=== PATIENT | male | born 1955 | race Caucasian/White ===

== ENCOUNTER 2020-05-05 09:36 | Outpatient (CLI) | payer OTHER, SELFPAY ==
--- NOTE | ~2020-05-05 | US_ITS ---
EXAMINATION: US thyroid DATE: 05/05/2020 10:08 INDICATION: Thyroid nodule. TECHNIQUE: Multiple ultrasound images of the thyroid were obtained. COMPARISON: Ultrasound 05/18/2018 FINDINGS: The right thyroid lobe measures 4.1 x 1.8 x 1.7 cm. The left thyroid lobe measures 4.0 x 2.0 x 1.8 c m. In the left thyroid lobe, there is a 5 mm solid, very hypoechoic, [id number]-[id number]-[id number] nodule with smo oth margin without echogenic foci (TI-RADS TR4). In the right thyroid lobe, there is a 5 mm solid, hy poechoic, riqeq-guyk-yxii nodule with smooth margin without echogenic foci (TR4). In right thyroid lo be, there is a 4 mm nodule. IMPRESSION: 1. Small thyroid nodules, likely not clinically significant. No follow-up is needed. Reviewed, dictated and finalized at location A. [facility] [employer] IMPRESSION: 1. Small thyroid nodules, likely not clinically significant. No follow-up is ne eded.
== END 2020-05-05 09:37 | disposition home or self-care (01) ==
LOC: ANHIMG 09:42
PROVIDERS: PCP Internal Medicine; Visit Provider Internal Medicine
DX: E04.2 Nontoxic multinodular goiter (principal)
CPT/HCPCS: 76536

== ENCOUNTER 2020-08-10 16:33 | Emergency (ER) | payer OTHER, SELFPAY ==
--- NOTE | ~2020-08-10 | XR_ITS ---
XR chest 2V DATE: 08/10/2020 17:40 INDICATION: Chest pain, fever, chills. Weakness. TECHNIQUE: AP and lateral views 12/07/2017 COMPARISON: AP and lateral chest FINDINGS: shelter monitor device is again noted in the left lower anterior chest wall. Heart size appears within upper normal range. Mild aortic unfolding. No hilar or mediastinal enlargem ent. Mild bibasilar atelectasis. Interbody spinal fusion at C6-7 since 12/07/2017. Diffuse osteopenia. Dextroscoliosis of the thoracic spine. Status post cholecystectomy. IMPRESSION: Mild bibasilar atelectasis Reviewed, dictated and finalized at location [facility]. IMPRESSION: Mild bibasilar atelectasis
--- NOTE | ~2020-08-10 | CT_ITS ---
EXAMINATION: CTA chest PE protocol DATE: 08/10/2020 21:27 INDICATION: Left-sided chest pain TECHNIQUE: Computed tomography angiography (CTA) of the chest was performed with 100 mL Omnipaque-350 intravenous contrast timed to evaluate the pulmonary arteries. Coronal maximum intensity projection 3D-reconstructions were created by the technologist. Automated exposure control and iterative reconst ruction technique were employed. Exam dose: 431.83 mGy-cm total exam DLP. COMPARISON: 08/10/2020 2 view chest 11/25/2008 CT pulmonary scan FINDINGS: There is diagnostic contrast enhancement of the pulmonary arteries and no evidence of pulmo nary embolism. No thoracic aortic aneurysm or dissection. Normal heart size. No hilar or mediastinal mass lesion or lymphadenopathy. Mild bilateral apical scarring. Mild discoid atelectasis or scarring in the lower lobes. No pulmonary infiltrate or consolidation or pulmonary mass lesion is evident. Normal morphology of the adrenal glands. There is apparent right nephrolithiasis. Status post cholecystectomy. IMPRESSION: No evidence of pulmonary embolism Reviewed, dictated and finalized at [facility]. Reviewed, dictated and finalized at location [facility].
--- NOTE | 2020-08-10 16:45 | ECG_ITS ---
Measurements Intervals [place] Rate: 105 P: 15 RI: 137 QRS: 2 QRSD: 88 T: 43 QT: 314 QTc: 416 Interpretive Statements SINUS TACHYCARDIA DELAYED PRECORDIAL R/S TRANSITION BASELINE ARTIFACT- I, II, III, AVR, AVL, AVF, V1-V6 ABNORMAL ECG Electronically Signed On 08-10-2020 20:00:06 CDT by Ean Hernandez D.O.
[2020-08-10 16:54] VITALS: BP 150/85; PULSE 107; RESP 20; TEMP 36.9; O2SAT 100
[2020-08-10 17:19] LABS: Basophils Percent Auto 0.2 % (0.2-1.2); Eosinophils Percent Auto 0.1 % (0-4.4); Hematocrit 43.3 % (42.0-52.0); Hemoglobin 14.2 g/dL (14.0-18.0); Immature Granulocyte Absolute 0.08 K/mm3 (0.00-0.031); Immature Granulocyte Percent A 0.5 % (0-0.5); Lymphocytes Absolute Auto 1.21 K/mm3 (0.9-3.2); Lymphocytes Percent Auto 6.9 % (18.3-44.2); Mean Corpuscular HGB Conc 32.8 g/dl (32-36); Mean Corpuscular Hemoglobin 30.2 pg (26-34); Mean Corpuscular Volume 92.1 fl (80-100); Mean Platelet Volume 10.3 fl (7.4-10.4); Monocytes Absolute Auto 0.6 K/mm3 (0.1-0.6); Monocytes Percent Auto 3.6 % (2.6-8.5); Neutrophils Absolute Auto 15.7 K/mm3 (1.3-6.7); Neutrophils Percent Auto 88.7 % (45.5-73.1); Platelet Count Result 168 k/mm3 (150-375); Red Cell Distribution Width 13.4 % (11.5-14.5); White Blood Count 17.7 K/mm3 (4.5-10.0)
[2020-08-10 17:28] LABS: Anion Gap 8 mmol/L (8-16); Blood Urea Nitrogen 18 mg/dL (9-20); Carbon Dioxide 27 mmol/L (22-30); Chloride 105 mmol/L (98-107); Estimated CRCL calculation 91 ml/min; Estimated Glomerular Filt Rate > 60; Glucose 109 mg/dL (75-110); Potassium 3.9 mmol/L (3.4-5.0); Sodium 140 mmol/L (137-145)
[2020-08-10 17:40] LABS: Troponin I < 0.012 ng/mL (0.000-0.034)
[2020-08-10 18:04] LABS: INR 1.1
[2020-08-10 18:05] LABS: Partial Thromboplastin Time 34.8 SECONDS (22.3-36.8)
[2020-08-10 19:48] VITALS: BP 160/86; PULSE 96; RESP 21; TEMP 37.4; O2SAT 98
--- NOTE | 2020-08-10 20:53 | ED.GENADULT ---
HPI - General Adult General Chief complaint: Chest Pain Stated complaint: chest pain Time Seen by Provider: 08/10/20 19:50 History of Present Illness HPI narrative: Patient is a 65-year-old gentleman who presents to the emergency department with chief complaint of fever body ache chest pain and headaches. Patient reports that for the last several days he has had a headache and is noticed that he has had fevers. Patient states that the headache is been unresolved reports that he has chronic neck pain reports also that he has had a little bit of a cough and has a sharp discomfort on the left side of his chest. Patient states is worse with inspiration does report that he has had some cough. Patient reports he was seen by his primary care physician and tested for COVID-19 this was negative. Related Data Allergies Allergy/AdvReac Type Severity Reaction Status Date / Time buspirone Allergy Unknown Verified 01/13/15 12:48 hydrocodone Allergy Unknown FEELS Verified 12/07/17 10:41 WEIRD , SWEATING, NO RASH, NO DIFFCULTY BREATHING Review of Systems Review of Systems: Narrative: A 10 system review of systems was completed on the patient and is negative except for what is stated in the HPI. Nursing and ancillary documentation was reviewed. [facility] Family History Family History (Updated 11/25/15 @ 23:21 by DOCTOR UNKNOWN) Mother Family history of heart disease in male family member before age 55 Father Acute myocardial infarction Sibling Patient's sister is in good health Patient's brother is in good health Family history of malignant neoplasm Other Family history of cardiovascular disease Hypertension Social History Social History Smoking status: Former smoker Alcohol intake: never Comments Patient has prior history of COPD hypertension hyperlipidemia Exam Narrative: Exam Narrative: GENERAL: Well-appearing, well-nourished, and in no acute distress. HEAD: Normocephalic, atraumatic. EYES: PERRLA and EOMI. ENT: Nares clear, no rhinorrhea or epistaxis. Mucous membranes moist. NECK: Supple. No meningeal signs CHEST: Clear to auscultation. No respiratory distress. HEART: Regular rate and rhythm. No murmur heard. Normal peripheral pulses. ABDOMEN: Soft, nontender, nondistended, normal active bowel sounds. EXTREMITIES: Normal range of motion. No edema. SKIN: Warm, dry, no rash. NEURO: No focal deficits. Alert and oriented x3. PSYCH: Normal mood and affect. Course Vital Signs Vital signs: Vital Signs Temperature 36.9 C 08/10/20 16:54 Pulse Rate 107 H 08/10/20 16:54 Respiratory Rate 08/10/20 16:54 Blood Pressure 150/85 H 08/10/20 16:54 Pulse Oximetry 100 08/10/20 16:54 Temperature 37.4 C 08/10/20 19:48 Pulse Rate 86 08/10/20 22:01 Respiratory Rate 20 08/10/20 22:01 Blood Pressure 149/86 H 08/10/20 22:01 Pulse Oximetry 100 08/10/20 22:01 Medical Decision Making Vital Signs Vital Signs: Vital Signs Temperature 36.9 C 08/10/20 16:54 Pulse Rate 107 H 08/10/20 16:54 Respiratory Rate 08/10/20 16:54 Blood Pressure 150/85 H 08/10/20 16:54 Pulse Oximetry 100 08/10/20 16:54 Temperature 37.4 C 08/10/20 19:48 Pulse Rate 86 08/10/20 22:01 Respiratory Rate 08/10/20 22:01 Blood Pressure 149/86 H 08/10/20 22:01 Pulse Oximetry 100 08/10/20 22:01 Lab Data Result diagrams: 08/10/20 17:12 08/10/20 17:12 Labs: Lab Results 08/10/20 08/10/20 08/10/20 Range/Units 17:12 17:12 17:12 WBC 17.7 H (4.5-10.0) K/mm3 RBC 4.70 (4.6-6.20) M/mm3 Hgb 14.2 (14.0-18.0) g/dL Hct 43.3 (42.0-52.0) % MCV 92.1 (80-100) fl MCH 30.2 (26-34) pg MCHC 32.8 (32-36) g/dl RDW 13.4 (11.5-14.5) % Plt Count 168 (150-375) k/mm3 MPV 10.3 (7.4-10.4) fl Immature Gran % (Auto) 0.5 (0-0.5) % Neut % (Auto) 88.7 H (45.5-73.1) % Lymph % (A
[2020-08-10 21:04] LABS: Alanine Aminotransferase 21 U/L (4-50); Albumin Level 4.1 g/dL (3.5-5.1); Alkaline Phosphatase 76 U/L (38-126); Aspartate Amino Transferase 31 U/L (17-59); Bilirubin,Total 1.1 mg/dL (0.2-1.3); Lipase 33 U/L (23-300)
--- NOTE | 2020-08-10 21:10 | PC.NURSE ---
Pt upset during IV insertion, pt upset during lab draw. Pt states they never have trouble getting [facility] blood at [facility], why can't you get it I gained access for IV after 1 attempt, 20 L hand, unable to obtain blood during lab draw. I attempted 1 time for labs on right arm, I was able to collect some of the labs, but the vein blew during lab draw. states again I don't understand why you are having trouble, the other nurse (DESEAN Juárez) seems very smart why don't you have her try, she knows what she is doing, my is not going to be a pin cushion, if we have too we will get a different nurse I then got DESEAN Juárez for assistance. Marquita ANTON was unable to obtain the blood, then Susan Ulloa went in and was able to obtain the blood. When I went in to give pain medication the was upset and being rude about how Marquita ANTON also could not get all the labs drawn and stated in a rude tone Susan didn't have any trouble getting the blood As I was drawing up the pain medications Pt yelled Where do you think you are going to stick that! I hope you don't think you are going to stick that in my arm! I answered I am going to put this in your IV Pt then calmed down and allowed me to administer the pain medication via IV access.
[2020-08-10 21:19] LABS: Lactic Acid Reflex 1.2 mmol/L (0.7-2.1)
[2020-08-10] MEDS: KETOROLAC 15 MG/ML VIAL (*BKC) IV PUSH (21:20)
--- NOTE | 2020-08-10 21:22 | PC.NURSE ---
Pt went to CT.
--- NOTE | 2020-08-10 21:25 | PC.NURSE ---
RN in to draw pt. blood. pt. vein blew immediately upon needle insertion. RN was able to advance needle and obtain blood for troponin, Lactic acid and second set of blood cultures were not obtained. mt Davis into draw blood specimen.
[2020-08-10 21:32] LABS: Troponin I < 0.012 ng/mL (0.000-0.034)
[2020-08-10] MEDS: SODIUM CHLORIDE 0.9% IV 1,000 ML 999 ML IV CONT (21:32)
[2020-08-10 21:40] LABS: Add Urine Microscopic? YES; Appearance Urine Cloudy (Clear); Bilirubin Urine Negative (Negative); Blood Urine Negative (Negative); Color Urine Yellow (Yellow); Glucose Urine UA Negative (Negative); Ketones Urine 1+ mg/dL (Negative); Leukocyte Esterase Ur Negative LEU/UL (Negative); Mucus Urine Rare /lpf; Nitrate Urine Negative (Negative); Protein Urine 1+ mg/dL (Negative); RBC Urine 0-2 /hpf (0-2); Specific Grav Ur 1.025 (1.001-1.035); Squamous Epithelial Cell Urine Rare /hpf (Few); WBC Urine 0-3 /hpf
[2020-08-10 22:01] VITALS: BP 149/86; PULSE 86; RESP 20; O2SAT 100
[2020-08-10] MEDS: MORPHINE SULFATE (*CRX) 4 MG/ML INJ IV PUSH (22:16)
--- NOTE | 2020-08-10 22:25 | PC.NURSE ---
Went into pts room to administer pain medication, swab for covid and strep. Updated pt and on what I was going to do, I informed that because we are swabbing for covid, that visitors are no longer allowed during ED stay. states in a very rude tone for how long! I answered during his stay, until we know if its negative or positive pt states very rudely That's fine, I'll wait in the car, I have some calls to make! . She then stormed out of the room. I then administered his pain medication and swabbed him for strep/covid.
--- NOTE | 2020-08-10 22:36 | PC.NURSE ---
Patient has made comments towards the staff. At 2034 the patient states how nurses fabian and prashant don't know how to draw blood . How prashant do not know how to stick and she was not professional , that it takes a tech to come to get his blood , and the nurses fabian and prashant have nurses license and they should know how to stick people. Also at 2227 the got mad because she was ask to leave but her have covid symptoms . fabian told her our policy and she said that she will be calling people about her visit and how she was treated. that i was the only person that showed them respect and was able to get his blood.
[2020-08-10 23:00] VITALS: BP 147/76; PULSE 86; RESP 20; TEMP 37.3; O2SAT 100
[2020-08-11 17:42] LABS: SARS-CoV-2 RNA PCR Negative
== END 2020-08-10 23:01 | disposition home or self-care (01) ==
PROVIDERS: Emergency Medicine; Emergency Provider Emergency Medicine; PCP Internal Medicine
DX: Z20.822 Contact with and (suspected) exposure to COVID-19 (principal); B34.9 Viral infection, unspecified; R07.89 Other chest pain; J44.9 Chronic obstructive pulmonary disease, unspecified; I10 Essential (primary) hypertension; E78.5 Hyperlipidemia, unspecified
CPT/HCPCS: 36415; 71046; 71275; 80048; 80076; 81001; 83605; 83690; 84484; 85025; 85610; 85730; 87040; 87081; 87804; 87880; 93005; 96361; 96374; 96375; 99284; C9803; J1885; J2270; J7030; Q9967; U0003; U0005

== ENCOUNTER 2023-05-27 00:30 | Day surgery (SDC) | payer OTHER, SELFPAY ==
[2023-05-24 16:14] VITALS: BMI 23.3
[2023-05-27 07:27] VITALS: BP 138/85; PULSE 73; RESP 11; O2SAT 97
--- NOTE | 2023-05-27 08:49 | PM.IMHP ---
H&P: HPI History of Present Illness Date/Time: 05/27/23 08:49 Chief Complaint: no complaints this morning Narrative: This is a 68-year-old man who has a chronically implanted Medtronic LINQ loop recorder and is scheduled to have the device electively removed this morning. Patient is unknown to me prior to this encounter. He follows in the office with my partner, Dr. Chua and has had a history of unexplained syncope in the past and for this reason had a Medtronic loop recorder implanted. The device was implanted I believe in 2017 and has for a while been passed end of service and is for that reason nonfunctional. The patient states that a physician elsewhere that is managing HD infection in his foot has indicated the device has to be removed so that he can have an MRI procedure performed. For this reason he has been scheduled to have this done today. I indicated to the patient that I was not aware that there was any MRI incompatibility with his will implanted LINQ device. His medical history also consists of hypertension and history of dyslipidemia. He does have a history of coronary angiography having been done for chest pain evaluation approximately 10 years ago which was a normal exam. Review of Systems Constitutional: Constitutional: Reports no additional constitutional complaints Eyes: Eyes: Reports no additional eye complaints ENT: Reports system reviewed and no additional complaints, except as documented Cardiovascular: Cardiovascular: Reports no additional cardiovascular complaints Respiratory: Respiratory: Reports no additional respiratory complaints Gastrointestinal: Gastrointestinal: Reports no additional gastrointestinal complaints Musculoskeletal: Comments: Lower extremity foot infection Neurologic: Reports system reviewed and no additional complaints, except as documented [facility] Family History Family History (Updated 11/25/15 @ 23:21 by DOCTOR UNKNOWN) Mother Family history of heart disease in male family member before age 55 Father Acute myocardial infarction Sibling Patient's sister is in good health Patient's brother is in good health Family history of malignant neoplasm Other Family history of cardiovascular disease Hypertension Social History Social History Smoking status: Former smoker Alcohol intake: never Substance use: never Substance use type: does not use Living arrangements: with family Spiritual care concerns: No Meds Home Medications and Allergies Home Medications Medication Instructions Recorded Confirmed Type acetaminophen 500 mg tablet (Pain 500 mg PO Q6H PRN Pain 05/24/23 05/24/23 History Reliever (acetaminophen)) ascorbic acid (vitamin C) 1,000 mg 1 g PO DAILY 05/24/23 05/24/23 History tablet aspirin 81 mg tablet,delayed 81 mg PO DAILY 05/24/23 05/24/23 History release (Adult Low Dose Aspirin) cefuroxime axetil 500 mg tablet 500 mg PO Q12H 05/24/23 05/24/23 History cyanocobalamin (vitamin B-12) 250 250 mcg PO DAILY 05/24/23 05/24/23 History mcg tablet donepezil 10 mg tablet 10 mg PO HS 05/24/23 05/24/23 History doxycycline hyclate 100 mg capsule 100 mg PO BID 05/24/23 05/24/23 History finasteride 5 mg tablet 5 mg PO DAILY 05/24/23 05/24/23 History fluticasone 250 mcg-salmeterol 50 1 inh inhalation Q12H 05/24/23 05/24/23 History mcg/dose blistr powdr for inhalation (Advair Diskus) metformin 500 mg tablet 500 mg PO BID 05/24/23 05/24/23 History metoprolol tartrate 25 mg tablet 25 mg PO BID 05/24/23 05/24/23 History multivit with minerals-iron 18 1 tablet PO DAILY 05/24/23 05/24/23 History mg-folic ac 400 mcg-vit K 25 mcg tablet (Adults Multivitamin) naproxen sodium 220 mg capsule 220 mg PO Q12H PRN Pain 05/24/23 05/24/23 History nitroglycerin 0.4 mg sublingual 0.4 mg sublingual Q5-15M PRN Chest 05/24/23 05/24/23 History tablet Pain omeprazole 40 mg capsule,delayed 40 mg PO DAILY 05/24/23 05/24/23 History
--- NOTE | 2023-05-27 09:14 | WPDMODSED ---
Moderate Sedation Note-Pt Data Patient Data Diagnosis: Previously implanted Medtronic LINQ loop recorder Present Complaint: no complaints Procedure to be performed/Plan: removal of loop recorder Allergies Allergy/AdvReac Type Severity Reaction Status Date / Time buspirone Allergy Unknown Unknown Verified 05/24/23 15:45 hydrocodone Allergy Unknown FEELS Verified 12/07/17 10:41 WEIRD , SWEATING, NO RASH, NO DIFFCULTY BREATHING morphine Allergy Irritable Verified 05/24/23 15:45 Home Medications Medication Instructions Recorded Confirmed Type acetaminophen 500 mg tablet (Pain 500 mg PO Q6H PRN Pain 05/24/23 05/24/23 History Reliever (acetaminophen)) ascorbic acid (vitamin C) 1,000 mg 1 g PO DAILY 05/24/23 05/24/23 History tablet aspirin 81 mg tablet,delayed 81 mg PO DAILY 05/24/23 05/24/23 History release (Adult Low Dose Aspirin) cefuroxime axetil 500 mg tablet 500 mg PO Q12H 05/24/23 05/24/23 History cyanocobalamin (vitamin B-12) 250 250 mcg PO DAILY 05/24/23 05/24/23 History mcg tablet donepezil 10 mg tablet 10 mg PO HS 05/24/23 05/24/23 History doxycycline hyclate 100 mg capsule 100 mg PO BID 05/24/23 05/24/23 History finasteride 5 mg tablet 5 mg PO DAILY 05/24/23 05/24/23 History fluticasone 250 mcg-salmeterol 50 1 inh inhalation Q12H 05/24/23 05/24/23 History mcg/dose blistr powdr for inhalation (Advair Diskus) metformin 500 mg tablet 500 mg PO BID 05/24/23 05/24/23 History metoprolol tartrate 25 mg tablet 25 mg PO BID 05/24/23 05/24/23 History multivit with minerals-iron 18 1 tablet PO DAILY 05/24/23 05/24/23 History mg-folic ac 400 mcg-vit K 25 mcg tablet (Adults Multivitamin) naproxen sodium 220 mg capsule 220 mg PO Q12H PRN Pain 05/24/23 05/24/23 History nitroglycerin 0.4 mg sublingual 0.4 mg sublingual Q5-15M PRN Chest 05/24/23 05/24/23 History tablet Pain omeprazole 40 mg capsule,delayed 40 mg PO DAILY 05/24/23 05/24/23 History release pravastatin 40 mg tablet 40 mg PO DAILY 05/24/23 05/24/23 History tamsulosin 0.4 mg capsule 0.4 mg PO BID 05/24/23 05/24/23 History tramadol 50 mg tablet 50 - 100 mg PO Q4-6H PRN Pain 05/24/23 05/24/23 History vitamin B complex 1 cap PO DAILY 05/24/23 05/24/23 History Current Medications: Active Medications Sodium Chloride (Normal Saline Iv) 500 mls @ 30 mls/hr IV CONT .[id number] ONE Stop: 05/27/23 23:39 Sedation/Anesthesia: No previous sedation/anesthesia problems (including family history). [facility] Family History Family History (Updated 11/25/15 @ 23:21 by DOCTOR UNKNOWN) Mother Family history of heart disease in male family member before age 55 Father Acute myocardial infarction Sibling Patient's sister is in good health Patient's brother is in good health Family history of malignant neoplasm Other Family history of cardiovascular disease Hypertension Social History Social History Smoking status: Former smoker Alcohol intake: never Substance use: never Substance use type: does not use Living arrangements: with family Spiritual care concerns: No Mod Sed Physical Exam Physical Exam Pre Procedural Exam: Normal: Appearance, Neck, Throat, Airway, Lungs, Heart Size, Heart Rate, Heart Rhythm and Neuro Exam Hours since solid foods: 12 Hours since liquid intake: 12 Mallampati Classification: class II Internal Medicine - PN: Obj Da Vital Signs Vital Signs: Vital Signs - 24 hr 05/27/23 07:27 Pulse Rate 73 Respiratory Rate 11 L Blood Pressure 138/85 Pulse Oximetry 97 Oxygen Delivery Room Air Meds/Results Medications: Active Medications Generic Name Dose Route Start Last Admin Trade Name Freq PRN Reason Stop Dose Admin Sodium Chloride 500 mls @ 30 mls/hr 05/27/23 07:00 Normal Saline Iv IV CONT 05/27/23 23:39 .[id number] ASA Classification/Sedation ASA Classification/Sedation ASA Class: II Emergent: No Risks: Risks, benefi
--- NOTE | 2023-05-27 09:47 | P.PCNCC_ITS ---
Cardiac Cath Procedure Note Date of procedure:: 05/27/23 Performing physician:: Deandre Wells MD Indication:: previously implanted loop recorder at end of battery service Brief clinical history:: this is a 68-year-old man with a history of a Medtronic loop recorder that was implanted in 2017. The device has nonfunctional as the battery service has . The patient states that physicians elsewhere who are managing and infection are desirous of having the device removed for reasons that are not understood at the time of this procedure. He states this has something to do with getting an MRI performed. He is admitted today as an outpatient to have the device explanted. Procedure Procedure performed:: Explantation of Medtronic LINQ loop recorder Sedation/Medication given:: fentanyl 50 Versed 2 mg Access site:: left anterior chest wall and side of chronically implanted loop recorder Estimated blood loss:: minimal Procedure note:: patient was brought to the cardiac catheterization lab in the postabsorptive state. The left anterior chest wall at the site of the chronically implanted loop recorder was prepped and draped in a sterile fashion. I did use fluoroscopy to locate the device. 1% lidocaine was infiltrated above the device for local anesthesia. Incision was then made about 2 cm long over the implanted device. Sharp and blunt dissection was used to separate the subcutaneous tissue and the Medtronic LINQ device was identified in the subcutaneous fat. Sharp and blunt dissection was used to cut the fibrous scar tissue the device was extracted from the skin. Electrocautery was used to provide cutaneous hemostasis. The pocket was flushed with Ancef infused saline. Following this the incision was closed in layers using 3-0 Vicryl in an interrupted fashion and 4-0 Vicryl in a subcuticular fashion for the skin. An Aquacel dressing was placed over the incision. The patient was taken to the holding area in stable condition. The procedure was well tolerated and uncomplicated. Findings:: As above Conclusion:: successful uncomplicated explantation of chronically implanted Medtronic LINQ loop recorder Deandre Wells MD [facility] Assessment and Plan Assessment and plan (1) Encounter for loop recorder at end of battery life: Code(s): Z45.09 - Encounter for adjustment and management of other cardiac device Status: Acute
[2023-05-27 10:00] VITALS: BP 140/84; PULSE 67; RESP 16; TEMP 36.1; O2SAT 94
[2023-05-27 10:15] VITALS: BP 130/93; PULSE 71; RESP 16; O2SAT 93
[2023-05-27 10:30] VITALS: BP 138/81; PULSE 70; RESP 16; O2SAT 95
[2023-05-27 10:45] VITALS: BP 139/95; PULSE 64; RESP 18; O2SAT 98
[2023-05-27 11:00] VITALS: BP 140/91; PULSE 68; RESP 18; O2SAT 97
== END 2023-05-27 11:28 | disposition home or self-care (01) ==
PROVIDERS: PCP Internal Medicine; Visit Provider Specialist
PROC: (CPT 33286; principal; 2023-05-27 08:30)
DX: Z45.09 Encounter for adjustment and management of other cardiac device (principal); Z79.82 Long term (current) use of aspirin; Z79.51 Long term (current) use of inhaled steroids; Z79.84 Long term (current) use of oral hypoglycemic drugs
CPT/HCPCS: 33286; J0690; J2250; J3010; J7040

== ENCOUNTER 2024-08-19 08:50 | Outpatient (CLI) | payer OTHER, SELFPAY ==
--- NOTE | ~2024-08-19 | US_ITS ---
EXAMINATION: US art doppler w press LE BI DATE: 08/19/2024 10:15 INDICATION: Diabetic ulcer of the toe and left foot TECHNIQUE: Segmental pressures and plethysmographic and Doppler waveforms of the brachial and lower e xtremity arteries were obtained. COMPARISON: None. FINDINGS: Right and left brachial artery pressures of 137 mm Hg and 139 mm Hg, respectively, are concordant (no rmal difference <= 30 mmHg). The right and left high-thigh pressure indices are 1.10 and 1.09, respec tively (normal > 1.2). The right ankle-brachial index (LEE) is 1.17 (normal >= 0.9-1). The right great toe-brachial index (T BI) is 0.97 (normal >= 0.6-0.8). The right lower extremity segmental pressure gradients are normal (n ormal gradients <= 20-30 mmHg between adjacent levels on the same leg or the same levels on the two l egs). Arterial waveforms are triphasic at the right common femoral artery and biphasic at the remaini ng arteries with brisk systolic upstrokes throughout the arteries of the right lower limb. The left LEE is 1.26. The left TBI is 0.84. The left lower extremity segmental pressure gradients are increased between the below the knee left popliteal artery and the left posterior tibial artery. Art erial waveforms are biphasic at the left common femoral, superficial femoral and popliteal arteries a nd monophasic at the posterior tibial and dorsalis pedis arteries with brisk systolic upstrokes throu ghout. IMPRESSION: 1. No significant arterial occlusive disease to either lower limb with normal bilateral LEE's and TBI 's. Reviewed, dictated and finalized at location A. IMPRESSION: 1. No significant arterial occlusive disease to either lower limb with normal b ilateral LEE's and TBI's.
--- OUTSIDE RECORDS SUMMARY | 2024-08-19 09:27 | XMS_ITS | Patient Health Record ---
Author Organization [address] [facility] Address [address] [place] [address] Care Team Providers Care Accordion Repairer Name Role Phone Umair Alvarez Primary Care Provider Nathalia Roy Unavailable [phone] Reason For Referral No Information Problems Problem Type SNOMED Code ICD Code Onset Dates Problem Status W/U Status Risk Notes Problem [id number] Non-pressure chronic 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 layer exposed (L97.522) Active confirmed Problem 889970157 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) Active confirmed Problem Chronic osteomyelitis of ankle and/or foot (951727817) Other osteomyelitis, ankle and foot (M86.8X7) Active confirmed Problem 31162593197739953 Personal histo ry of diabetic foot ulcer (Z86.31) Active confirmed Problem [id number] Other osteomyelitis of left foot (M86.8X7) Active confirmed Problem 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 of necrosis (L97.525) Active confirmed Problem 19157341 Type 2 diabetes mellitus with diabetic polyneuropathy, 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42 and Non-pressure chronic 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 layer exposed L97.522 [facility] [address] [id number] 09/06/2023 Nathalia Alcala Type 2 diabetes kaila itus with diabetic polyneuropathy, unspecified whether penitentiary insulin use E11.42 and Non-pressure chronic 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 layer exposed L97.522 [facility] [address] [id number] 09/20/2023 Nathalia Alcala Type 2 diabetes kaila itus with diabetic polyneuropathy, unspecified whether dedicated intermodal truck driver insulin use E11.42 and Non-pressure chronic 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 layer exposed L97.522 [facility] [address] [id number] 10/04/2023 Nathalia Alcala Type 2 diabetes kaila itus with diabetic polyneuropathy, unspecified whether dedicated intermodal truck driver insulin use E11.42 and Non-pressure chronic 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 layer exposed L97.522 [facility] [address] [id number] 10/11/2023 Nathalia Alcala Type 2 diabetes kaila itus with diabetic polyneuropathy, unspecified whether penitentiary insulin use E11.42 and Non-pressure chronic 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 layer exposed L97.522 [facility] [address] [id number] 10/25/2023 Nathalia Alcala Type 2 diabetes kaila itus with diabetic polyneuropathy, unspecified whether dedicated intermodal truck driver insulin use E11.42 ; Non-pressure chronic 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 layer exposed L97.522 and Other specified disorders of the skin and subcutaneous tissue L98.8 [facility] [address] [id number] 11/15/2023 Nathalia Alcala Type 2 diabetes kaila itus with diabetic polyneuropathy, unspecified whether penitentiary insulin use E11.42 and Non-pressure chronic 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 layer exposed L97.522 [facility] [address] [id number] 11/29/2023 Nathalia Alcala Type 2 diabetes kaila itus with diabetic polyneuropathy, unspecified whether penitentiary insulin use E11.42 ; Non-pressure chronic 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 layer exposed L97.522 and Other acquired deformities of left foot M21.6X2 [facility] [address] [id number] 12/13/2023 Nathalia Shaha Type 2 diabetes kaila itus with diabetic polyneuropathy, unspecified whether dedicated intermodal truck driver insulin use E11.42 and Non-pressure chronic 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 layer exposed L97.522 [facility] [address] [id number] 12/27/2023 Nathalia Shaha Type 2 diabetes kaila itus with diabetic polyneuropathy, unspecified whether penitentiary insulin use E11.42 ; Non-pressure chronic 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 layer exposed L97.522 and Personal history of other diseases of the musculoskeletal system and connective tissue Z87.39 [facility] [address] [id number] 01/10/2024 Nathalia Alcala Type 2 diabetes kaila itus with diabetic polyneuropathy, unspecified whether penitentiary insulin use E11.42 ; Non-pressure chronic 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 layer exposed L97.522 and Personal history of other diseases of the musculoskeletal system and connective tissue Z87.[address] [id number] 01/31/2024 Nathalia Shaha Type 2 diabetes kaila itus with diabetic polyneuropathy, unspecified whether penitentiary insulin use E11.42 and Personal history of diabetic foot ulcer Z86.31 [facility] [address] [id number] 02/28/2024 Nathalia Shaha Type 2 diabetes kaila itus with diabetic polyneuropathy, unspecified whether penitentiary insulin use E11.42 and Personal history of diabetic foot ulcer Z86.31 1 OF Elena Dos Santos DPM [facility] [address] [address] 01/07/2024 Nathalia Alcala Assessments Encounter Date Diagnosis (ICD Code) Assessment Notes Treatment Notes Treatment Clinical Notes Section Notes 08/23/2023 Type 2 diabetes mellitus with diabetic polyneuropathy, unspecified whether dedicated intermodal truck driver insulin use (ICD-10 - E11.42) 08/30/2023 Type 2 diabetes mellitus with diabetic polyneuropathy, unspecified whether dedicated intermodal truck driver insulin use (ICD-10 - E11.42) 09/06/2023 Type 2 diabetes mellitus with diabetic polyneuropathy, unspecified whether penitentiary insulin use (ICD-10 - E11.42) 09/20/2023 Type 2 diabetes mellitus with diabetic polyneuropathy, unspecified whether penitentiary insulin use (ICD-10 - E11.42) 10/04/2023 Type 2 diabetes mellitus with diabetic polyneuropathy, unspecified whether penitentiary insulin use (ICD-10 - E11.42) 10/25/2023 Type 2 diabetes mellitus with diabetic polyneuropathy, unspecified whether penitentiary insulin use (ICD-10 - E11.42) 11/15/2023 Non-pressure chronic 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 layer exposed (ICD-10 - L97.522) 11/15/2023 Type 2 diabetes mellitus with diabetic polyneuropathy, unspecified whether penitentiary insulin use (ICD-10 - E11.42) 11/29/2023 Non-pressure chronic 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 layer exposed (ICD-10 - L97.522) 11/29/2023 Type 2 diabetes mellitus with diabetic polyneuropathy, unspecified whether penitentiary insulin use (ICD-10 - E11.42) 12/13/2023 Non-pressure chronic 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 layer exposed (ICD-10 - L97.522) 12/13/2023 Type 2 diabetes mellitus with diabetic polyneuropathy, unspecified whether penitentiary insulin use (ICD-10 - E11.42) 12/27/2023 Non-pressure chronic 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 layer exposed (ICD-10 - L97.522) 10/11/2023 Type 2 diabetes mellitus with diabetic polyneuropathy, unspecified whether penitentiary insulin use (ICD-10 - E11.42) 10/25/2023 Non-pressure chronic 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 layer exposed (ICD-10 - L97.522) 12/27/2023 Type 2 diabetes mellitus with diabetic polyneuropathy, unspecified whether dedicated intermodal truck driver insulin use (ICD-10 - E11.42) 01/10/2024 Type 2 diabetes mellitus with diabetic polyneuropathy, unspecified whether dedicated intermodal truck driver insulin use (ICD-10 - E11.42) 01/31/2024 Personal history of diabetic foot ulcer (ICD-10 - Z86.31) 01/31/2024 Type 2 diabetes mellitus with diabetic polyneuropathy, unspecified whether dedicated intermodal truck driver insulin use (ICD-10 - E11.42) 02/28/2024 Type 2 diabetes mellitus with diabetic polyneuropathy, unspecified whether dedicated intermodal truck driver insulin use (ICD-10 - E11.42) 02/28/2024 Personal history of diabetic foot ulcer (ICD-10 - Z86.31) 01/10/2024 Non-pressure chronic 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 layer exposed (ICD-10 - L97.522) 10/25/2023 Other specified disorders of the skin and subcutaneous tissue (ICD-10 - L98.8) 12/27/2023 Personal history of other diseases of the musculoskeletal system and connective tissue (ICD-10 - Z87.39) 11/29/2023 Other acquired deformities of left foot (ICD-10 - M21.6X2) 10/11/2023 Non-pressure chronic 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 layer exposed (ICD-10 - L97.522) 10/04/2023 Non-pressure chronic 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 layer exposed (ICD-10 - L97.522) 09/20/2023 Non-pressure chronic 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 layer exposed (ICD-10 - L97.522) 09/06/2023 Non-pressure chronic 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 layer exposed (ICD-10 - L97.522) 08/30/2023 Non-pressure chronic 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 layer exposed (ICD-10 - L97.522) 08/23/2023 Non-pressure chronic 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 layer exposed (ICD-10 - L97.522) 01/10/2024 Personal history of other diseases of the musculoskeletal system and connective tissue (ICD-10 - Z87.39) Plan Of Treatment No Information Insurance Providers Payer Name Payer Address Payer Phone Subscriber Number Group Number Insured Name Patient Relationship to Insured Coverage Start Date Coverage End Date [employer] [address] [address] [place] [id number] Sebas Cardona Self - patient is the insured
--- OUTSIDE RECORDS SUMMARY | 2024-08-19 09:27 | XMS_ITS ---
Author Organization 1 OF Elena stanton DPM [facility] Address [address] [place] [address] Care Team Providers Care Chemical Production Technician Name Role Phone Umair Alvarez Primary Care Provider Nathalia Roy Unavailable [phone] REASON FOR VISIT Wound care Encounters Encounter Location Date Provider Diagnosis [address] [place], [place] [id number] 02/28/2024 Nathalia Alcala Type 2 diabetes mellitus with diabetic polyneuropathy, unspecified whether retirement insulin use E11.42 and Personal history of diabetic foot ulcer Z86.31 Assessments Encounter Date Diagnosis (ICD Code) Assessment Notes Treatment Notes Treatment Clinical Notes Section Notes 02/28/2024 Type 2 diabetes mellitus with diabetic polyneuropathy, unspecified whether retirement insulin use (ICD-10 - E11.42) 02/28/2024 Personal history of diabetic foot ulcer (ICD-10 - Z86.31) Plan Of Treatment No Information Progress Notes * BRENDANRakan SHAFFERYamilkaOB:[birth year] (69 yo M)Acc No.[id number]:02/28/2024 Patient: Sebas SWEENEY Provider: Mariano Alcala DPM :1955 A ge:69 Y S ex:Male Date:02/28/2024 Address:[address] [place], [place]-[address] Pcp:Umair Alvarez Subjective: * Chief Complaints: * W ound care * HPI: P rimary reason for visit:: Patient seen at [facility] [place]. Documentation for treatment in [place]. * Medical History: * Medications: Objective: * Vitals: Assessment: * Assessment: 1. T ype 2 diabetes mellitus with diabetic polyneuropathy, unspecified whether retirement insulin use - E11.42 (Primary) 2 . P ersonal history of diabetic foot ulcer - Z86.31? Plan: * Treatment: * Procedure Codes: * Images: * CAL ILLUSTRATOR Sign off status: Completed true * Provider: Mariano Alcala DPM Date: 1 04/29/2023 Generated for Esperanza gray/Uziel/Christopher on: 0 08/19/2024 09:27 AM CDT History and Physical Notes * HPI (History of Present Illness) Category Sub-Category Detail Notes Category Not es Primary reason for visit: Patient seen at [facility]. Documentation for treatment in [place].
--- OUTSIDE RECORDS SUMMARY | 2024-08-19 09:27 | XMS_ITS ---
Author Organization 1 [facility] Address [address] [facility] [address] [place] [address] Care Team Providers Care Funeral Car Chauffeur Name Role Phone Umair Alvarez Primary Care Provider Nathalia Roy Unavailable [phone] REASON FOR VISIT Wound care Problems Problem Type SNOMED Code ICD Code Onset Dates Problem Status W/U Status Risk Notes Problem [id number] Personal history of diabetic foot ulcer (Z86.31) Active confirmed Encounters Encounter Location Date Provider Diagnosis [facility] Outpatient [address] [id number] 01/31/2024 Nathalia Alcala Type 2 diabetes mellitus with diabetic polyneuropathy, unspecified whether [facility] insulin use E11.42 and Personal history of diabetic foot ulcer Z86.31 Assessments Encounter Date Diagnosis (ICD Code) Assessment Notes Treatment Notes Treatment Clinical Notes Section Notes 01/31/2024 Type 2 diabetes mellitus with diabetic polyneuropathy, unspecified whether [facility] insulin use (ICD-10 - E11.42) 01/31/2024 Personal history of diabetic foot ulcer (ICD-10 - Z86.31) Plan Of Treatment Next Appt Details Follow Up: 3 Weeks,prn, Reas on: Progress Notes * FAVIAN RakanYamilkaOB:[birth year] (69 yo M)Acc No.[id number]:01/31/2024 Patient: Sebas SWEENEY Provider: Mariano Alcala DPM :1955 A ge:69 Y S ex:Male Date:01/31/2024 [address] [facility] Pcp:Umair Alvarez Subjective: * Chief Complaints: * W ound care * HPI: P rimary reason for visit:: Patient seen at [facility]. Documentation for treatment in [facility]. * Medical History: * Medications: Objective: * Vitals: Assessment: * Assessment: 1. P ersonal history of diabetic foot ulcer - Z86.31 2 . T ype 2 diabetes mellitus with diabetic polyneuropathy, unspecified whether long term acute care registered nurse insulin use - E11.42 (Primary)? Plan: * Treatment: * Procedure Codes: * Follow Up: 3 Weeks,prn * Images: * Sign off status: Completed true * Provider: Mariano Alcala DPM Date: 1 Generated for Esperanza gray/Uziel/Christopher on: 0 08/19/2024 09:27 AM CDT History and Physical Notes * HPI (History of Present Illness) Category Sub-Category Detail Notes Category Not es Primary reason for visit: Patient seen at [facility] [place]. Documentation for treatment in [facility].
--- OUTSIDE RECORDS SUMMARY | 2024-08-19 09:28 | XMS_ITS ---
Author Organization 1 OF Elena stanton DPM [facility] Address [address] [address] [place] [address] Care Team Providers Care Custodial Foreman Name Role Phone Umair Alvarez Primary Care Provider Nathalia Roy Unavailable [phone] REASON FOR VISIT Wound care Encounters Encounter Location Date Provider Diagnosis [facility] Outpatient [facility] [place], [place] [id number] 01/10/2024 Nathalia Alcala Type 2 diabetes kaila itus with diabetic polyneuropathy, unspecified whether prison insulin use E11.42 ; Non-pressure chronic 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 layer exposed L97.522 and Personal history of other diseases of the musculoskeletal system and connective tissue Z87.39 Assessments Encounter Date Diagnosis (ICD Code) Assessment Notes Treatment Notes Treatment Clinical Notes Section Notes 01/10/2024 Type 2 diabetes mellitus with diabetic polyneuropathy, unspecified whether prison insulin use (ICD-10 - E11.42) 01/10/2024 Non-pressure chronic 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 layer exposed (ICD-10 - L97.522) 01/10/2024 Personal history of other diseases of the musculoskeletal system and connective tissue (ICD-10 - Z87.39) Plan Of Treatment Next Appt Details Follow Up: 1 Week,malikanKasia n: Progress Notes * Mimi BALLESTEROSOB:[birth year] (68 yo M)Acc No.[id number]:01/10/2024 Patient: Sebas SWEENEY Provider: Mariano Alcala DPM :1955 A ge:68 Y S ex:Male Date:01/10/2024 Address:[address], [place], [place] Pcp:Umair Alvarez Subjective: * Chief Complaints: * W ound care * HPI: P rimary reason for visit:: Patient seen at [facility]. Documentation for treatment in [facility]. * Medical History: * Medications: Objective: * Vitals: Assessment: * Assessment: 1. T ype 2 diabetes mellitus with diabetic polyneuropathy, unspecified whether prison insulin use - E11.42 (Primary) 2 . N on-pressure chronic 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 layer exposed - L97.522 3 . P ersonal history of other diseases of the musculoskeletal system and connective tissue - Z87.39 Plan: * Treatment: * Procedure Codes: 9 7597 ACTIVE WOUND CARE/20 CM OR < * Follow Up: 1 Week,prn * Images: * Sign off status: Completed true * Provider: Mariano Alcala DPM Date: 0 01/10/2024 Generated for Esperanza gray/Uziel/Deandreitting on: 0 08/19/2024 09:27 AM CDT History and Physical Notes * HPI (History of Present Illness) Category Sub-Category Detail Notes Category Not es Primary reason for visit: Patient seen at [facility] [place]. Documentation for treatment in [facility].
--- OUTSIDE RECORDS SUMMARY | 2024-08-19 09:28 | XMS_ITS | Clinical Summary ---
Author Organization [facility] Address [address] [place] [address] Care Team Providers Care Photogrammetric Compilation Specialist Name Role Phone Umair Alvarez MD Primary Care Provider [phone] Orlando Chua MD Unavailable [phone] Allergies No known active allergies Medications donepezil 10 MG Tab Take 10 mg by mouth every evening. 08/10/2020 Active metFORMIN 500 MG tablet Take 500 mg by mouth 2 (two) times daily with meals. 09/11/2020 Active metoprolol tartrate 25 MG tablet Take 25 mg by mouth 2 (two) times a day. 10/24/2020 Active omeprazole 40 MG capsule Take 40 mg by mouth every morning before breakfast. 08/28/2020 Active pravastatin 40 MG tablet Take 40 mg by mouth nightly at bedtime. 08/28/2020 Active traMADol 50 MG tablet Take 50-100 mg by mouth every 6 (six) hours as needed for Pain. 10/24/2020 Active aspirin EC (ASPIRIN EC) 81 MG tablet Take 81 mg by mouth nightly at bedtime. Active polycarbophil (FIBER) 625 MG tablet Take 625 mg by mouth 2 (two) times a day. Active multi vitamin/mineral s tablet Take 1 tablet by mouth daily. Active omega-3 fatty acid 500 MG capsule Take 500 mg by mouth daily. Active vitamin B-12 500 MCG tablet Take 500 mcg by mouth daily. Active nitroglycerin 0.[address] 0.4 mg under the tongue every 5 (five) minutes as needed for Chest Pain. Active vitamin C 1000 MG tablet Take 1,000 mg by mouth daily. Active fluticasone-zachery meterol (WIXELA INHUB) 250-50 MCG/DOSE inhaler Inhale 1 puff into the lungs 2 (two) times daily. Active finasteride 5 MG tablet Take 1 tablet (5 mg total) by mouth daily. 30 tablet 01/03/2021 Active HYDROcodone-dre taminophen 5-325 MG tabletIndicatio ns:Acute Pain < 7 Day Supply Take 1 tablet by mouth every 6 (six) hours as needed for Pain. Indications: Acute Pain < 7 Day Supply 15 tablet 01/02/2021 Active solifenacin 5 MG tablet Take 1 tablet (5 mg total) by mouth daily. 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 Atrial fibrillation, unspecified type ([facility]) 10/26/2020 Body aches 10/26/2020 Chronic bronchitis, unspecif ied chronic bronchitis type ([facility]) 10/26/2020 Chronic diastolic (congestiv e) heart failure ([facility]) 10/26/2020 Early onset Alzheimer's jonna ntia without behavioral disturbance 10/26/2020 Dementia in other diseases c lassified elsewhere without behavioral disturbance 10/26/2020 Chronic obstructive pulmonar y disease, unspecified COPD type ([facility]) 10/26/2020 Fever, unspecified fever cause 10/26/2020 Furuncle of skin or subcutaneous tissue 10/27/19 21 Gastroesophageal reflux disease 10/26/2020 Mixed hyperlipidemia 10/26/2020 Thyroid nodule 10/26/2020 Syncope and collapse 10/26/2020 Senile purpura 10/26/2020 Type 2 diabetes mellitus wit h diabetic polyneuropathy ([facility]) 10/26/2020 Type 2 diabetes mellitus wit h other circulatory complication, unspecified whether care home insulin use ([facility]) 10/26/2020 Hypertensive heart disease w ith congestive heart failure ([facility]) 08/13/2018 Immunizations Immunization Administration Dates Next Due MODERNA COVID-19 (12+) MRNA, LNP-S, PF, 100 MCG/ 0.5 ML DOSE 08/16/2020,07/18/2020 Family History Medical History Relation Comments Heart Disease Brother 1 Kidney Cancer Brother 1 Arthritis Father Heart Disease Father Hypertension Father Arthritis Mother Diabetes Mother Heart Disease Mother Hypertension Mother No Known Problems Son 1 No Known Problems Son 2 No Known Problems Son 3 Relation Status Comments Brother 1 Brother 2 Alive Father Mother Sister Alive Son 1 Alive Son 2 Alive Son 3 Alive Social History Tobacco Use Types Packs/Day Years Used Date Smoking Tobacco: Former Cigarettes 1 27 1 963 - 1989 Smokeless Tobacco: Never Tobacco Cessation:Ready to Q uit: No; Counseling Given: No Alcohol Use Standard Drinks/Week Comments Never 0 (1 standard drink = 0.6 oz pur e alcohol) AUDIT-C Answer Date Recorded Q1: How often do you have a drink containing alc ohol? Never 10/26/2020 Average Number of Drinks Not on file 021 Frequency of Binge Drinking Not on file 09/29 PHQ-2 Answer Date Recorded PHQ-2 Score - If the patient scores above 3, please move on to questions 3-9 0 12/15/2020 Sex and Gender Information Value Date Recorded Sex Assigned at Not on file Legal Sex Male 4:45 PM CDT Gender Identity Not on file Sexual Orientation Not on file Last Filed Vital Signs Vital Sign Reading Time Taken Comments Blood Pressure 143/93 01/02/2021 6:15 AM CDT Pulse 82 01/02/2021 6:15 AM CDT Temperature 36.3 C (97.3 F) 01/02/2021 6:15 AM CDT Respiratory Rate 18 01/02/2021 6:15 AM CDT Oxygen Saturation 96% 01/02/2021 6:15 AM CDT Inhaled Oxygen Concentration - - Weight 82.6 kg (182 lb) 12/30/2020 10:27 AM CDT Height 188 cm (6' 2 ) 12/30/2020 10:27 AM CDT Body Mass Index 23.37 12/30/2020 10:27 AM CDT Plan of Treatment Health Maintenance Due Date Last Done Comments ASCVD LDL 1953 ASCVD Statin 1955 Colorectal Cancer Screening Colonoscopy (10 Years) 1953 Kidney Health Evaluation 1953 Diabetes: Retinopathy Eye Exam 1971 Hepatitis C 1971 DTaP, Tdap and Td Vaccines ( 1 - Tdap) 01/29/1972 Zoster Vaccines (1 of 2) 2003 RSV Immunization or 60+ Years (1 - Risk 60-74 years 1-dose series) 2013 Annual Medicare Wellness Visit 2018 Lipid Panel 03/17/2021 03/17/2020 Pneumococcal Vaccine: 50+ Years (2 of 2 - PCV) 03/21/2021 03/21/2020 Hemoglobin A1C 06/30/2021 12/31/2020, 10/27/2020 COVID-19 Vaccine (3 - 2023-2 5 season) 2023 08/16/2020, 07/18/2020 Meningococcal B Vaccine Aged Out No l onger eligible based on patient's age to complete this topic Meningococcal Vaccine Aged Out No reich pete eligible based on patient's age to complete this topic RSV Immunizations Under 20 Months Aged Out No longer eligible b ased on patient's age to complete this topic Goals Goal Patient Goal Type Associated Problems Recent Progress Patient-Stated? Author Family - family caregiver with be involved in care transitions and discharge planning General No Emerald Meyer, EXCELLENCE LEADER Safety - demonstrates understanding of home safety measures General No Bety Heredia RN Medical Devices Implanted Type Area Hvac Service Manager Device Identifier Shelf Expiration Date Model / Serial / Lot Stent Ureteral 4.7fr 26cm Taper Pusher Fluoro Marker Atraumatic Insertion Inlay [place] Polymer Phreecoat Sterile Latex Free Disposable [place] - [id number] Implanted:Qty: 1 on 11/24/2020 by Luke Chong MD at [facility] Stent Right: Ureter [employer] [id number] 03/16/2025 [id number] / / [id number] Procedures Procedure Name Priority Date/Time Associated Diagnosis Comments HEMOGLOBIN, GLYCOSYLATED Routine 12/31/2020 5:38 AM CDT from Last 3 Months or Most Recently Relevant to Health Maintenance Results * (ABNORMAL) HEMOGLOBIN, GLYCATED (12/31/2020 5:38 AM CDT) HGB A1C 6.2(H) <5.7 % 12/31/2020 12:36 PM CDT [facility] Comment: ADA GUIDELINES 2010 5.7 TO 6.4% INCREASED RISK OF DIABETES > OR = 6.5% CONSISTENT WITH DIABETES ESTIMATED AVG GLUCOSE 131 mg/dL 12/31/2020 12:36 PM CDT [facility] 12/31/2020 5:38 AM CDT Rachel Baires MD LABORATORY Final Result [facility] [address] [place] [address], from Last 3 Months or Most Recently Relevant to Health Maintenance Insurance [facility] Advance Directives * Full Code (Latest Code Status on File) Date Activated Date Inactivated Comments 12/30/2020 8:36 PM 01/02/2021 3:25 PM * Full Code Date Activated Date Inactivated Comments 12/30/2020 7:35 PM 12/30/2020 8:36 PM * Full Code Date Activated Date Inactivated Comments 11/24/2020 11:47 PM 11/28/2020 1:50 PM * Full Code Date Activated Date Inactivated Comments 10/27/2020 2:21 AM 10/29/2020 2:23 PM Care Teams Photogrammetric Compilation Specialist Relationship Specialty Start Date End Date Umair Alvarez MD [address] [place] [address] PCP - General INTERNAL MEDICINE 10/26/20 Orlando Chua MD [address] [address] CARDIOVASCULAR DISEASE 11/21/20
== END 2024-08-19 08:51 | disposition home or self-care (01) ==
PROVIDERS: PCP Internal Medicine; Visit Provider Internal Medicine Cardiovascular Disease
DX: E11.621 Type 2 diabetes mellitus with foot ulcer (principal); L97.521 Non-pressure chronic ulcer of other part of left foot limited to breakdown of skin
CPT/HCPCS: 93923

== ENCOUNTER 2025-01-22 17:18 | Emergency (ER) | payer OTHER, SELFPAY ==
--- OUTSIDE RECORDS SUMMARY | 2024-10-28 03:30 | XMS_ITS ---
Author Organization [facility] Address [address] [place], [place] [id number] Care Team Providers Care Senior Web Services Developer Name Role Phone WHIT ALBERTO Unavailable [phone] Umair Alvarez Unavailable Unavailable Allergies Allergen (clinical drug ingredient) Drug/Non Drug Allergy documented on EMR Reaction Allergy Type Onset Date Status morphine Morphine Unknown Drug Allergy 05/03/2021 active Tape Unknown Allergy Active REASON FOR VISIT *Wound check Medications Medication SIG (Take, Route, Frequency, Duration) Notes Start Date End Date Status Aspirin 81 MG Oral Capsule ORAL aspirin 81 MG Oral CapsuleOriginal Medicationaspirin 81 MG Oral Capsule *Reorder from [employer] for eRx and Interaction Alerts* 05/03/19 22 Active nitroglycerin 0.4 MG Sublingual Tablet [Nitrostat] nitroglycerin 0.4 MG Sublingual Tablet [Nitrostat]Original Medicationnitroglycerin 0.4 MG Sublingual Tablet [Nitrostat] *Reorder from [employer] for eRx and Interaction Alerts* 05/03/19 22 Not-Takin g psyllium 520 MG Oral Capsule ORAL psyllium 520 MG Oral CapsuleOriginal Medicationpsyllium 520 MG Oral Capsule *Reorder from [employer] for eRx and Interaction Alerts* 05/03/19 22 Not-Takin g Cephalexin 250 MG 1 capsule Orally Once a day; Duration: 10 day(s) Active 14 ACTUAT fluticasone propionate 0.25 MG/ACTUAT / salmeterol 0.05 MG/ACTUAT Dry Powder Inhaler [Advair] INTRAPULMONARY 14 ACTUAT fluticasone propionate 0.25 MG/ACTUAT / salmeterol 0.05 MG/ACTUAT Dry Powder Inhaler [Advair]Original [id number] ACTUAT fluticasone propionate 0.25 MG/ACTUAT / salmeterol 0.05 MG/ACTUAT Dry Powder I 05/03/19 22 Not-Tyler redd Finasteride 5 MG 1 tablet Orally Once a day Active Pravastatin Sodium 40 MG Oral Tablet ORAL pravastatin sodium 40 MG Oral TabletOriginal Medicationpravastatin sodium 40 MG Oral Tablet *[facility] for eRx and Interaction Alerts* 05/03/19 22 Active Metoprolol Tartrate 25 MG 1 tablet with food Orally Twice a day Active Flomax Active Omeprazole 40 MG 1 capsule 1/2 to 1 hour before morning meal Orally Once a day Active traMADol HCl 50 MG 1 tablet as needed Orally Once a day Active Wixela Inhub 250-50 MCG/ACT 1 puff Inhalation Twice a day Active Vitamin B 12 250 MCG 2 lozenges Orally Once a day Active Vital Signs Height 72.00 in 10/28/2024 Weight 186 lbs 10/28/2024 BMI 25.22 kg/m2 10/28/2024 Height-cm 182.88 cm 10/28/2024 Weight-kg 84.37 kg 10/28/2024 Encounters Encounter Location Date Provider Diagnosis [facility] [address] [id number] 10/28/2024 WHIT ALBERTO Cellulitis of left lower limb L03.116 ; Non-pressure chronic ulcer of other part of left foot with necrosis of bone L97.524 ; Other acute osteomyelitis, left ankle and foot M86.172 ; Type 2 diabetes mellitus with diabetic polyneuropathy E11.42 and Pain in left foot M79.672 Assessments Encounter Date Diagnosis (ICD Code) Assessment Notes Treatment Notes Treatment Clinical Notes Section Notes 10/28/2024 Cellulitis of left lower limb (ICD-10 - L03.116) The area of previous cellulitis has healed on recent antibiotics which he completed. Re-evaluate next week. Culture did not grow bacteria besides normal tonya. The lifetime risk of a foot ulcer for patients with diabetes (type 1 or 2) may be as high as 25 percent. Diabetic foot ulcers are a major cause of morbidity and mortality, accounting for approximately two-thirds of all nontraumatic amputations performed in the [place]. This observation illustrates the importance of prompt treatment of foot ulcers in patients with diabetes. The treatment of diabetic foot ulcers begins with a comprehensive assessment of the ulcer and the patient's overall medical condition. Evidence of underlying neuropathy, bony deformity, and peripheral artery disease should be actively sought. Adequate debridement, proper local wound care, relief of pressure on the ulcer by mechanical off-loading, and control of infection (when present) are important components of therapy. Dressings are selected based upon wound characteristics. The dressings will be changed at home twice a day. Cleanse with wound cleanser, pat dry, apply triple antibiotic ointment and melgisorb (dispensed) dry sterile gauze dispensed to foot, offloading pad, then clean sock and orthotic and shoe or post op shoe. Advised him to stay off of his feet as much as possible and take oral antibiotic as directed, rest and elevate and get good nutrition. No ALCOHOL, reduce sugar and salt. Eat high protein diet and vegetables and drink water daily. He will consider OTC orthotics vs post op shoe next visit. He has still not found the DME items he has from previous wound treatment. 10/28/2024 Non-pressure chronic ulcer of other part of left foot with necrosis of bone (ICD-10 - L97.524) Discussed again with patient and his the possible need for admission for IV antibiotics and surgical intervention if the previous osteomyelitis infection presents as a sinus from the bone again. Ulcer Debridement: Using a 15 blade, the ulcer was sharply debrided down to bleeding tissue. The nonviable tissue was sharply debrided down to the layer of subcutaneous tissue. A dry sterile dressing was applied with an offloading pad and athletic tape. De León Grade 2 Ulcer Plan of Care: The treatment goals are closure of the ulceration within an appropriate time frame. This will require regular debridements every 2 weeks until skin closure has been met. The patient will come in sooner than 2 weeks if the wound develops any signs of infection or deteriorates. The plan of care will be reviewed every month. If there is no change in the size of the wound, we will re evaluate debridement schedule, topical medications being used, as well as modify techniques for offloading the wound. DE LEÓN GRADING 2 Grade 2: Penetration through the subcutaneous tissue (may expose bone, tendon, ligament or joint capsule) 10/28/2024 Other acute osteomyelitis, left ankle and foot (ICD-10 - M86.172) Patient has had a wound with exposed bone which then healed temporarily and reopened. He had been treating it himself for 4 months. He is high risk for amputation and sepsis. Discussed in detail with patient and . Patient will call if any concerns or changes. We have retrieved his most recent labs from pcp which were stable. I educated the patient on offloading, supportive shoegear, and the use of orthotic devices and bracing. 10/28/2024 Type 2 diabetes mellitus with diabetic polyneuropathy (ICD-10 - E11.42) The lifetime risk of a foot ulcer for patients with diabetes (type 1 or 2) may be as high as 25 percent. Diabetic foot ulcers are a major cause of morbidity and mortality, accounting for approximately two-thirds of all nontraumatic amputations performed in the [place]. This observation illustrates the importance of prompt treatment of foot ulcers in patients with diabetes. The treatment of diabetic foot ulcers begins with a comprehensive assessment of the ulcer and the patient's overall medical condition. Evidence of underlying neuropathy, bony deformity, and peripheral artery disease should be actively sought. Adequate debridement, proper local wound care, relief of pressure on the ulcer by mechanical off-loading, and control of infection (when present) are important components of therapy. Dressings are selected based upon wound characteristics. 10/28/2024 Pain in left foot (ICD-10 - M79.672) Due to neuropathy, area is not painful at this time Plan Of Treatment Medication Medication Name Sig Start Date Stop Date Notes Cephalexin 250 MG 1 capsule Orally Onc e a day; Duration: 10 day(s) Treatment Notes Assessment Notes Cellulitis of left lower limb The area of previous cellulitis has healed on recent antibiotics which he completed. Re-evaluate next week. Culture did not grow bacteria besides normal tonya. The lifetime risk of a foot ulcer for patients with diabetes (type 1 or 2) may be as high as 25 percent. Diabetic foot ulcers are a major cause of morbidity and mortality, accounting for approximately two-thirds of all nontraumatic amputations performed in the [place]. This observation illustrates the importance of prompt treatment of foot ulcers in patients with diabetes. The treatment of diabetic foot ulcers begins with a comprehensive assessment of the ulcer and the patient's overall medical condition. Evidence of underlying neuropathy, bony deformity, and peripheral artery disease should be actively sought. Adequate debridement, proper local wound care, relief of pressure on the ulcer by mechanical off-loading, and control of infection (when present) are important components of therapy. Dressings are selected based upon wound characteristics. The dressings will be changed at home twice a day. Cleanse with wound cleanser, pat dry, apply triple antibiotic ointment and melgisorb (dispensed) dry sterile gauze dispensed to foot, offloading pad, then clean sock and orthotic and shoe or post op shoe. Advised him to stay off of his feet as much as possible and take oral antibiotic as directed, rest and elevate and get good nutrition. No ALCOHOL, reduce sugar and salt. Eat high protein diet and vegetables and drink water daily. He will consider OTC orthotics vs post op shoe next visit. He has still not found the DME items he has from previous wound treatment. Non-pressure chronic ulcer o f other part of left foot with necrosis of bone Discussed again with patient and his the possible need for admission for IV antibiotics and surgical intervention if the previous osteomyelitis infection presents as a sinus from the bone again. Ulcer Debridement: Using a 15 blade, the ulcer was sharply debrided down to bleeding tissue. The nonviable tissue was sharply debrided down to the layer of subcutaneous tissue. A dry sterile dressing was applied with an offloading pad and athletic tape. De León Grade 2 Ulcer Plan of Care: The treatment goals are closure of the ulceration within an appropriate time frame. This will require regular debridements every 2 weeks until skin closure has been met. The patient will come in sooner than 2 weeks if the wound develops any signs of infection or deteriorates. The plan of care will be reviewed every month. If there is no change in the size of the wound, we will re evaluate debridement schedule, topical medications being used, as well as modify techniques for offloading the wound. DE LEÓN GRADING 2 Grade 2: Penetration through the subcutaneous tissue (may expose bone, tendon, ligament or joint capsule) Other acute osteomyelitis, l eft ankle and foot Patient has had a wound with exposed bone which then healed temporarily and reopened. He had been treating it himself for 4 months. He is high risk for amputation and sepsis. Discussed in detail with patient and . Patient will call if any concerns or changes. We have retrieved his most recent labs from pcp which were stable. I educated the patient on offloading, supportive shoegear, and the use of orthotic devices and bracing. Type 2 diabetes mellitus wit h diabetic polyneuropathy The lifetime risk of a foot ulcer for patients with diabetes (type 1 or 2) may be as high as 25 percent. Diabetic foot ulcers are a major cause of morbidity and mortality, accounting for approximately two-thirds of all nontraumatic amputations performed in the [place]. This observation illustrates the importance of prompt treatment of foot ulcers in patients with diabetes. The treatment of diabetic foot ulcers begins with a comprehensive assessment of the ulcer and the patient's overall medical condition. Evidence of underlying neuropathy, bony deformity, and peripheral artery disease should be actively sought. Adequate debridement, proper local wound care, relief of pressure on the ulcer by mechanical off-loading, and control of infection (when present) are important components of therapy. Dressings are selected based upon wound characteristics. Pain in left foot Due to neuropathy, a yaya is not painful at this time Next Appt Details Follow Up: 1 Week,wound chec k, Reason: Progress Notes * BON BALLESTEROS LDOB:1954 (69 yo M)Acc No.[id number]:10/28/2024 Patient: Marcelo BON GARCES Rashawn Provider: Alana ALBERTO :1955 A ge:69 Y S ex:Male Date:10/28/2024 Address:[address] [place] [address] Subjective: * Chief Complaints: * 1 . *Wound check. * HPI: H PI: Follow Up Visit P atient presents for follow up visit for a wound on the bottom of the left foot. , Patient states their problem is, improving., MA: KIMANI. * ROS: G eneral / Constitutional: Patient denies c hills, fatigue, fever. P atient complains of p ain. M usculoskeletal: Patient complains of j oint stiffness. P eripheral Vascular: Patient complains of u lceration of feet, painful extremities, decreased sensation in extremities, cold extremities. S kin: Patient denies r maryellen, keloid scar. P atient complains of u lcerations, nail changes. N eurologic: Patient complains of n umbness. * Medical History: M edical History Verified. * Surgical History: r eplacement , neck surgery . * Family History: F ather: heart disease. M other: PRN - Mother: :: Diabetes,,known absent . * Social History: M igrated Social History: M igrated Social History: History of tobacco use : , Smoking Status : Former tobacco user. * Medications: T aking Wixela Inhub 250-50 MCG/ACT Aerosol Powder Breath Activated 1 puff Inhalation Twice a day , Taking Vitamin B 12 250 MCG Lozenge 2 lozenges Orally Once a day , Taking traMADol HCl 50 MG Tablet 1 tablet as needed Orally Once a day , Taking Omeprazole 40 MG Capsule Delayed Release 1 capsule 1/2 to 1 hour before morning meal Orally Once a day , Taking Metoprolol Tartrate 25 MG Tablet 1 tablet with food Orally Twice a day , Taking Flomax , Taking Finasteride 5 MG Tablet 1 tablet Orally Once a day , Taking Pravastatin Sodium 40 MG Oral Tablet ORAL , Notes to Pharmacist: pravastatin sodium 40 MG Oral TabletOriginal Medicationpravastatin sodium 40 MG Oral Tablet *Reorder from [employer] [facility] [employer] for eRx and Interaction Alerts*, Taking Aspirin 81 MG Oral Capsule ORAL , Notes to Pharmacist: aspirin 81 MG Oral CapsuleOriginal Medicationaspirin 81 MG Oral Capsule *Reorder from [facility] [employer] for eRx and Interaction Alerts*, Taking Cephalexin 250 MG Capsule 1 capsule Orally Once a day , Not- Taking 14 ACTUAT fluticasone propionate 0.25 MG/ACTUAT / salmeterol 0.05 MG/ACTUAT Dry Powder Inhaler [Advair] INTRAPULMONARY , Notes to Pharmacist: 14 ACTUAT fluticasone propionate 0.25 MG/ACTUAT / salmeterol 0.05 MG/ACTUAT Dry Powder Inhaler [Advair]Original [id number] ACTUAT fluticasone propionate 0.25 MG/ACTUAT / salmeterol 0.05 MG/ACTUAT Dry Powder I, Not-Taking nitroglycerin 0.4 MG Sublingual Tablet [Nitrostat] , Notes to Pharmacist: nitroglycerin 0.4 MG Sublingual Tablet [Nitrostat]Original Medicationnitroglycerin 0.4 MG Sublingual Tablet [Nitrostat] *Reorder from [facility] for eRx and Interaction Alerts*, Not-Taking psyllium 520 MG Oral Capsule ORAL , Notes to Pharmacist: psyllium 520 MG Oral CapsuleOriginal Medicationpsyllium 520 MG Oral Capsule *Reorder from [employer] for eRx and Interaction Alerts*, Medication List reviewed and reconciled with the patient * Allergies: Joshua salcedo: Allergy - Onset Date 05/03/2021, Tape: Allergy. Objective: * Vitals: W t:186lbs, Wt-k.37 kg, Ht: 72.00 in, Ht-cm: 182.88 cm, BMI:25.22Index, Body Surface Area: 2.07. * Examination: C onstitutional: Constitutional T he patient is awake, alert, well developed, well groomed and well nourished. D ermatologic: Skin findings: b ilateral, Skin is thin, atrophic and lacking pedal hair. Ulcer: T here is an ulceration present on sub left 2nd mtpj. The ulceration measures cm length 1 cm x 0.7 width x 0.4 cm depth probing to deep tissue. There is no longer periwound erythema or blistering at bandage edge. The wound base is 50/50 fibrotic/granular, no longer has macerated tissue. There was undermining in all directions. The borders are h yperkeratotic. The drainage is m ild s erous The wound has no foul odor. It is full thickness.. M usculoskeletal: Muscle Strength M uscle strength is 5/5 in regards to dorsiflexion, plantarflexion, inversion, and eversion in bilateral lower extremities. Pain on palpation T here is mild pain on palpation of sub 2nd mtpj left foot at wound and periwound. Hammertoes D orsally contracted digits 2-5 bilateral. The deformity is rigid and nonreducible. 1st MPJ T here is a dorsal contracture o f the left hallux. He recalled a previous fracture to this area of his foot that occurred in his 20s. ? N eurologic: Sharp sensation: b ilaterally d ecreased S emmes Sergio 5.07 monofilament and s harp/dull sensation to the level of. Gross sensation G ross sensation is intact to light touch.? V ascular: Dorsalis pedis pulse: b ilateral, 1/4. Posterior tibial pulse: b ilaterally, 1/4. Capillary refill: b ilaterally, greater than 3 seconds Patient had peripheral vascular testing several weeks ago with his supervisor [employer], Orlando Chua, [facility] at [address] [place] [address] phone: [phone] fax [phone] with [facility]. When staff reached out to this office they stated there was not an order for this testing. Assessment: * Assessment: 1. 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 C ellulitis of left lower limb - L03.116 3 . O ther acute osteomyelitis, left ankle and foot - M86.172 4 . T ype 2 diabetes mellitus with diabetic polyneuropathy - E11.42 5 . P ain in left foot - M79.672 ? Plan: * Treatment: 2. C ellulitis of left lower limb Start Cephalexin Capsule, 250 MG, 1 capsule, Orally, Once a day, 10 day(s), 10. Notes: The area of previous cellulitis has healed on recent antibiotics which he completed. Re-evaluate next week. Culture did not grow bacteria besides normal tonya. The lifetime risk of a foot ulcer for patients with diabetes (type 1 or 2) may be as high as 25 percent. Diabetic foot ulcers are a major cause of morbidity and mortality, accounting for approximately two-thirds of all nontraumatic amputations performed in the [place]. This observation illustrates the importance of prompt treatment of foot ulcers in patients with diabetes. The treatment of diabetic foot ulcers begins with a comprehensive assessment of the ulcer and the patient's overall medical condition. Evidence of underlying neuropathy, bony deformity, and peripheral artery disease should be actively sought. Adequate debridement, proper local wound care, relief of pressure on the ulcer by mechanical off-loading, and control of infection (when present) are important components of therapy. Dressings are selected based upon wound characteristics. The dressings will be changed at home twice a day. Cleanse with wound cleanser, pat dry, apply triple antibiotic ointment and melgisorb (dispensed) dry sterile gauze dispensed to foot, offloading pad, then clean sock and orthotic and shoe or post op shoe. Advised him to stay off of his feet as much as possible and take oral antibiotic as directed, rest and elevate and get good nutrition. No ALCOHOL, reduce sugar and salt. Eat high protein diet and vegetables and drink water daily. He will consider OTC orthotics vs post op shoe next visit. He has still not found the DME items he has from previous wound treatment. 3. O ther acute osteomyelitis, left ankle and foot Notes: Patient has had a wound with exposed bone which then healed temporarily and reopened. He had been treating it himself for 4 months. He is high risk for amputation and sepsis. Discussed in detail with patient and . Patient will call if any concerns or changes. We have retrieved his most recent labs from pcp which were stable. I educated the patient on offloading, supportive shoegear, and the use of orthotic devices and bracing. 4. T ype 2 diabetes mellitus with diabetic polyneuropathy Notes: The lifetime risk of a foot ulcer for patients with diabetes (type 1 or 2) may be as high as 25 percent. Diabetic foot ulcers are a major cause of morbidity and mortality, accounting for approximately two-thirds of all nontraumatic amputations performed in the [place]. This observation illustrates the importance of prompt treatment of foot ulcers in patients with diabetes. The treatment of diabetic foot ulcers begins with a comprehensive assessment of the ulcer and the patient's overall medical condition. Evidence of underlying neuropathy, bony deformity, and peripheral artery disease should be actively sought. Adequate debridement, proper local wound care, relief of pressure on the ulcer by mechanical off-loading, and control of infection (when present) are important components of therapy. Dressings are selected based upon wound characteristics. 5. P ain in left foot Notes: Due to neuropathy, area is not painful at this time * Immunizations: Immunization record has been reviewed and updated. * Procedure Codes: 1 1042 DEBRIDE SKIN/TISSUE * Follow Up: 1 Week,wound check * Billing Information: * Visit Code: * Procedure Codes: 88041 DEBRIDE SKIN/TISSUE. * Electronic signature of MIKALA ALBERTO DPM on 01/22/2025 at 07:32 PM CDT Sign off status: Pending * Provider: Alana ALBERTO Date: 10/28/2024 Generated for Esperanza Gleason/Deandreitting on: 0 01/22/2025 07:32 PM CDT History and Physical Notes * HPI (History of Present Illness) Category Sub-Category Detail Notes Category Not es HPI Follow Up Visit Patient presents for follow up visit for a wound on the bottom of the left foot. , Patient states their problem is, improving., MA: CHERRIER Examination Category Sub-Category Detail Notes Category Not es Constitutional Constitutional The patient is a wake, alert, well developed, well groomed and well nourished Dermatologic Skin findings: bilateral, Skin is thin, atrophic and lacking pedal hair Ulcer: There is an ulcerati on present on sub left 2nd mtpj.The ulceration measures cm length 1 cm x 0.7 width x 0.4 cm depth probing to deep tissue.There is no longer periwound erythema or blistering at bandage edge. The wound base is 50/50 fibrotic/granular, no longer has macerated tissue. There was undermining in all directions.The borders are hyperkeratotic.The drainage is mild serousThe wound has no foul odor.It is full thickness. Musculoskeletal Muscle Strength Muscle strength is 5/5 in regards to dorsiflexion, plantarflexion, inversion, and eversion in bilateral lower extremities Pain on palpation There is mild pain o n palpation of sub 2nd mtpj left foot at wound and periwound Hammertoes Dorsally contracted digits 2-5 bilateral. The deformity is rigid and nonreducible 1st MPJ There is a dorsal co ntracture of the left hallux. He recalled a previous fracture to this area of his foot that occurred in his 20s Neurologic Sharp sensation: bilaterally dec reased [place] Sergio 5.07 monofilament and sharp/dull sensation to the level of Gross sensation Gross sensation is i ntact to light touch Vascular Dorsalis pedis pulse: bilateral, 1/4 Posterior tibial pulse: bilaterally, 1/4 Capillary refill: bilaterally, greater than 3 secondsPatient had peripheral vascular testing several weeks ago with his supervisor [employer], Orlando Chua [facility] at [address] [facility] [address] [place] [address] phone: [phone] fax [phone] with [facility]. When staff reached out to this office they stated there was not an order for this testing
--- OUTSIDE RECORDS SUMMARY | 2024-11-11 03:30 | XMS_ITS ---
Author Organization [facility] Address [address] [place], [place] [id number] Care Team Providers Care Skin Care Instructor Name Role Phone WHIT ALBERTO Unavailable [phone] Umair Alvarez Unavailable Unavailable Allergies Allergen (clinical drug ingredient) Drug/Non Drug Allergy documented on EMR Reaction Allergy Type Onset Date Status morphine Morphine Unknown Drug Allergy 05/03/2021 active Tape Unknown Allergy Active REASON FOR VISIT *Wound check Medications Medication SIG (Take, Route, Frequency, Duration) Notes Start Date End Date Status Vitamin B 12 250 MCG 2 lozenges Orally Once a day Active Wixela Inhub 250-50 MCG/ACT 1 puff Inhalation Twice a day Active psyllium 520 MG Oral Capsule ORAL psyllium 520 MG Oral CapsuleOriginal Medicationpsyllium 520 MG Oral Capsule *Reorder from [employer] for eRx and Interaction Alerts* 05/03/19 22 Not-Takin g Cephalexin 250 MG 1 capsule Orally Once a day; Duration: 10 day(s) Active traMADol HCl 50 MG 1 tablet as needed Orally Once a day Active 14 ACTUAT fluticasone propionate 0.25 MG/ACTUAT / salmeterol 0.05 MG/ACTUAT Dry Powder Inhaler [Advair] INTRAPULMONARY 14 ACTUAT fluticasone propionate 0.25 MG/ACTUAT / salmeterol 0.05 MG/ACTUAT Dry Powder Inhaler [Advair]Original [id number] ACTUAT fluticasone propionate 0.25 MG/ACTUAT / salmeterol 0.05 MG/ACTUAT Dry Powder I 05/03/19 22 Not-Takin g Aspirin 81 MG Oral Capsule ORAL aspirin 81 MG Oral CapsuleOriginal Medicationaspirin 81 MG Oral Capsule *[facility] and [facility]* 05/03/19 22 Active Pravastatin Sodium 40 MG Oral Tablet ORAL pravastatin sodium 40 MG Oral TabletOriginal Medicationpravastatin sodium 40 MG Oral Tablet *[facility] and [facility]* 05/03/19 22 Active Finasteride 5 MG 1 tablet Orally Once a day Active nitroglycerin 0.4 MG Sublingual Tablet [Nitrostat] nitroglycerin 0.4 MG Sublingual Tablet [Nitrostat]Original Medicationnitroglycerin 0.4 MG Sublingual Tablet [Nitrostat] *[facility] and [facility]* 05/03/19 22 Not-Takin g Flomax Active Metoprolol Tartrate 25 MG 1 tablet with food Orally Twice a day Active Omeprazole 40 MG 1 capsule 1/2 to 1 hour before morning meal Orally Once a day Active Vital Signs Height 72 in 11/11/2024 Weight 186 lbs 11/11/2024 BMI 25.22 kg/m2 11/11/2024 Height-cm 182.88 cm 11/11/2024 Weight-kg 84.37 kg 11/11/2024 Encounters Encounter Location Date Provider Diagnosis [facility] [address] [id number] 11/11/2024 WHIT ALBERTO Cellulitis of left lower limb L03.116 ; 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 Culture did not grow bacteria besides normal [...] wound cleanser, pat dry, apply triple antibiotic ointment, dry sterile gauze dispensed to foot, felt offloading pad, then clean sock and orthotic and shoe or post op shoe. Advised him to stay off of his feet as much as possible, rest and elevate and get good nutrition. NO ALCOHOL, reduce sugar and salt. Eat high protein diet and vegetables and drink water daily. He will consider OTC orthotics vs post op shoe next visit. 11/11/2024 Non-pressure chronic ulcer of other part of [...] expose bone, tendon, ligament or joint capsule) 11/11/2024 Other acute osteomyelitis, left ankle and foot (ICD-10 - M86.172) Patient has had this wound with previously had exposed bone for over a year. The tissue healed temporarily and reopened. He had been [...] the use of orthotic devices and bracing. 11/11/2024 Type 2 diabetes mellitus with diabetic polyneuropathy (ICD-10 - E11.42) 11/11/2024 Pain in left foot (ICD-10 - M79.672) Due to neuropathy, area is not painful at this time Plan Of Treatment Medication Medication Name Sig Start Date Stop Date Notes Cephalexin 250 MG 1 capsule Orally Onc e a day; Duration: 10 day(s) Treatment Notes Assessment Notes Cellulitis of left lower limb The area of previous cellulitis has healed. Culture did not grow bacteria besides normal [...] wound cleanser, pat dry, apply triple antibiotic ointment, dry sterile gauze dispensed to foot, felt offloading pad, then clean sock and orthotic and shoe or post op shoe. Advised him to stay off of his feet as much as possible, rest and elevate and get good nutrition. NO ALCOHOL, reduce sugar and salt. Eat high protein diet and vegetables and drink water daily. He will consider OTC orthotics vs post op shoe next visit. Non-pressure chronic ulcer o f other part [...] eft ankle and foot Patient has had this wound with previously had exposed bone for over a year. The tissue healed temporarily and reopened. He had been [...] the use of orthotic devices and bracing. Pain in left foot Due to neuropathy, a yaya is not painful at this time Next Appt Details Follow Up: 3 Weeks,wound jennifer ck, Reason: per patient request,extended to 3 weeks but he agrees to call if any changes Progress Notes * BON BALLESTEROS LDOB:1954 (69 yo M)Acc No.[id number]:11/11/2024 Patient: Marcelo NORMABON OLIVER Rashawn Provider: Alana ALBERTO :1955 A ge:69 Y S ex:Male Date:11/11/2024 Address:[address] [place], [place] [id number] Subjective: * Chief Complaints: * 1 . *Wound check. * HPI: H PI: Follow Up Visit P atient presents for follow up visit for wound check. , Patient states their problem is, improving., MA: nd. * ROS: G eneral / Constitutional: Patient denies c hills, fatigue, fever. P atient complains of p ain. M usculoskeletal: Patient denies p ainful joints. P atient complains of?hammertoes, weakness. P eripheral Vascular: Patient denies p ain / cramping in legs after exertion.?Patient complains of u lceration of feet. S kin: Patient denies d ry skin. P atient complains of d iscoloration, u lcerations. N eurologic: Patient denies d izziness, loss of strength. ? * Medical History: N o Reported Medical History.Medical History Verified. * Surgical History: r eplacement , neck surgery . * Hospitalization/Major Diagno stic Procedure: D enies Past Hospitalization. * Family History: F ather: heart disease. M other: PRN - Mother: :: Diabetes,,known absent . * Social History: M igrated Social History: M igrated Social History: History of tobacco use : , Smoking Status : Former tobacco user. * Medications: T aking Cephalexin 250 MG Capsule 1 capsule Orally Once a day , Taking Wixela Inhub 250-50 MCG/ACT Aerosol Powder Breath [...] sodium 40 MG Oral Tablet *Reorder from [employer] for eRx and Interaction Alerts*, Taking Aspirin 81 MG Oral Capsule ORAL , Notes to Pharmacist: aspirin 81 MG Oral CapsuleOriginal Medicationaspirin 81 MG Oral Capsule *Reorder from [employer] for eRx and Interaction Alerts*, Not-Taking 14 ACTUAT fluticasone propionate 0.25 MG/ACTUAT / salmeterol 0.05 MG/ACTUAT Dry Powder Inhaler [Advair] INTRAPULMONARY , Notes to Pharmacist: 14 ACTUAT fluticasone propionate 0.25 MG/ACTUAT / salmeterol 0.05 MG/ACTUAT Dry Powder Inhaler [Advair]Original [id number] ACTUAT fluticasone propionate 0.25 MG/ACTUAT / salmeterol 0.05 MG/ACTUAT Dry Powder I, Not-Taking nitroglycerin 0.4 MG Sublingual Tablet [Nitrostat] , Notes to Pharmacist: nitroglycerin 0.4 MG Sublingual Tablet [Nitrostat]Original Medicationnitroglycerin 0.4 MG Sublingual Tablet [Nitrostat] *[facility] and Interaction Alerts*, Not-Taking psyllium 520 MG Oral Capsule ORAL , Notes to Pharmacist: psyllium 520 MG Oral CapsuleOriginal Medicationpsyllium 520 MG Oral Capsule *[facility] and Interaction Alerts*, Medication List reviewed and reconciled with the patient * Allergies: M orphine: Allergy - Onset Date 05/03/2021, Tape: Allergy. Objective: * Vitals: W t:186lbs, Wt-k.37 kg, Ht: 72 in, Ht-cm: 182.88 cm, BMI:25.22Index, Body Surface [...] length 1 cm x 0.7 width x 0.2 cm depth probing to deep tissue. There is no longer periwound erythema or blistering. The wound base is 30/70 fibrotic/granular, has mild macerated tissue at rim. There was 0.2 cm undermining in all directions. The borders are [...] mtpj left foot at wound and periwound. Lorena suarezally contracted digits 2-5 bilateral. The deformity is [...] vascular testing several weeks ago with his development expert, Orlando Chua [facility] at [address] [place] [address] phone: [phone] fax [phone] with [facility]. When staff reached out to [...] Notes: The area of previous cellulitis has healed. Culture did not grow bacteria besides normal [...] wound cleanser, pat dry, apply triple antibiotic ointment, dry sterile gauze dispensed to foot, felt offloading pad, then clean sock and orthotic and shoe or post op shoe. Advised him to stay off of his feet as much as possible, rest and elevate and get good nutrition. NO ALCOHOL, reduce sugar and salt. Eat high protein diet and vegetables and drink water daily. He will consider OTC orthotics vs post op shoe next visit. 3. O ther acute osteomyelitis, left ankle and foot Notes: Patient has had this wound with previously had exposed bone for over a year. The tissue healed temporarily and reopened. He had been [...] use of orthotic devices and bracing. 4. P ain in left foot Notes: Due to neuropathy, area is not painful at this time * Procedure Codes: 1 1042 DEBRIDE SKIN/TISSUE * Follow Up: 3 Weeks,wound check (Reason: per patient request,extended to 3 weeks but he agrees to call if any changes) * Billing Information: * Visit Code: * Procedure Codes: 70565 DEBRIDE SKIN/TISSUE. * Electronic signature of MIKALA ALBERTO DPM on 01/22/2025 at 07:32 PM CDT Sign off status: Pending * Provider: Alana ALBERTO Date: 0 11/11/2024 Generated for Esperanza gray/Uziel/Christopher on: 0 01/22/2025 07:32 PM CDT History and Physical Notes * HPI (History of Present Illness) Category Sub-Category Detail Notes Category Not es HPI Follow Up Visit Patient presents for follow up visit for wound check. , Patient states their problem is, improving., MA: nd Examination Category Sub-Category Detail Notes Category Not es Constitutional Constitutional The patient is a wake, alert, well developed, well groomed and well nourished Dermatologic Skin findings: bilateral, Skin is thin, atrophic and lacking pedal hair Ulcer: There is an ulcerati on present on sub left 2nd mtpj.The ulceration measures cm length 1 cm x 0.7 width x 0.2 cm depth probing to deep tissue.There is no longer periwound erythema or blistering. The wound base is 30/70 fibrotic/granular, has mild macerated tissue at rim. There was 0.2 cm undermining in all directions.The borders are hyperkeratotic.The [...] 20s Neurologic Sharp sensation: bilaterally dec reased [place] Sergio 5.07 monofilament and sharp/dull sensation to the level of Gross sensation Gross sensation is i ntact to light touch Vascular Dorsalis pedis pulse: bilateral, 1/4 Posterior tibial pulse: bilaterally, 1/4 Capillary refill: bilaterally, greater than 3 secondsPatient had peripheral vascular testing several weeks ago with his development expert, Orlando Chua, [facility] at [address] [facility] [place] [address] phone: [phone] fax [phone] with [facility]. When staff reached out to this office they stated there was not an order for this testing
--- OUTSIDE RECORDS SUMMARY | 2024-12-02 03:10 | XMS_ITS ---
Author Organization [facility] Address [address] [place], [place] [phone] Care Team Providers Care Duplicate Maker Name Role Phone WHIT ALBERTO Unavailable [phone] Umair Alvarez Unavailable Unavailable Allergies Allergen (clinical [...] Medicationaspirin 81 MG Oral Capsule *Reorder from [employer] for eRx and Interaction Alerts* 05/03/19 22 Active Cephalexin 250 MG 1 capsule Orally Once a day; Duration: 10 day(s) Active nitroglycerin 0.4 MG Sublingual Tablet [Nitrostat] nitroglycerin 0.4 MG Sublingual Tablet [Nitrostat]Original Medicationnitroglycerin 0.4 MG Sublingual Tablet [Nitrostat] *Reorder from [facility] for eRx and Interaction Alerts* 05/03/19 22 Not-Takin g 14 ACTUAT fluticasone propionate 0.25 MG/ACTUAT / salmeterol 0.05 MG/ACTUAT Dry Powder Inhaler [Advair] INTRAPULMONARY 14 ACTUAT fluticasone propionate 0.25 MG/ACTUAT / salmeterol 0.05 MG/ACTUAT Dry Powder Inhaler [Advair]Original Ekuxlcgvcu25 ACTUAT fluticasone propionate 0.25 MG/ACTUAT / salmeterol 0.05 MG/ACTUAT Dry Powder I 05/03/19 22 Not-Takin g psyllium 520 MG Oral Capsule ORAL psyllium 520 MG Oral CapsuleOriginal Medicationpsyllium 520 MG Oral Capsule *[facility] and Interaction Alert[facility]* 05/03/19 22 Not-Takin g Pravastatin Sodium 40 MG Oral Tablet ORAL pravastatin sodium 40 MG Oral TabletOriginal Medicationpravastatin sodium 40 MG Oral Tablet *Reorder from [facility] for eRx and Interaction Alerts* 05/03/19 22 Active Metoprolol Tartrate 25 MG 1 tablet with food Orally Twice a day Active Omeprazole 40 MG 1 capsule 1/2 to 1 hour before morning meal Orally Once a day Active Finasteride 5 MG 1 tablet Orally Once a day Active Flomax Active Vitamin B 12 250 MCG 2 lozenges Orally Once a day Active Wixela Inhub 250-50 MCG/ACT 1 puff Inhalation Twice a day Active traMADol HCl 50 MG 1 tablet as needed Orally Once a day Active Encounters Encounter Location Date Provider Diagnosis [facility] [address] [place], [place] [id number] 12/02/2024 WHIT DOLLY 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 12/02/2024 Type 2 diabetes mellitus with diabetic polyneuropathy (ICD-10 - E11.42) Plan Of Treatment Treatment Notes Assessment Notes Non-pressure chronic ulcer o f other part [...] the use of orthotic devices and bracing. Next Appt Details Follow Up: 3 Weeks,wound jennifer ck, Reason: per patient request,extended to 3 weeks but he agrees to call if any changes Progress Notes * BON BALLESTEROS LDOB:1954 (69 yo M)Acc No.[id number]:12/02/2024 Patient: BON SWEENEY Provider: Alana ALBERTO :1955 A ge:69 Y S ex:Male Date:12/02/2024 Address:[address] [place] [address] Subjective: * Chief Complaints: * 1 . *Wound check. * HPI: H PI: Follow Up Visit P atient presents for follow up visit for wound check., Patient states their problem is, improving., MA: . * ROS: G eneral / Constitutional: Patient [...] loss of strength. ? * Medical History: * Surgical History: r eplacement , neck [...] sodium 40 MG Oral Tablet *Reorder from [facility] for eRx and Interaction Alerts*, Taking Aspirin 81 MG Oral Capsule ORAL , Notes to Pharmacist: aspirin 81 MG Oral CapsuleOriginal Medicationaspirin 81 MG Oral Capsule *Reorder from [facility] for eRx and Interaction Alerts*, Not-Taking 14 ACTUAT fluticasone propionate 0.25 MG/ACTUAT / salmeterol 0.05 MG/ACTUAT Dry Powder Inhaler [Advair] INTRAPULMONARY , Notes to Pharmacist: 14 ACTUAT fluticasone propionate 0.25 MG/ACTUAT / salmeterol 0.05 MG/ACTUAT Dry Powder Inhaler [Advair]Original [id number] ACTUAT fluticasone propionate 0.25 MG/ACTUAT / salmeterol 0.05 MG/ACTUAT Dry Powder I, Not-Taking nitroglycerin 0.4 MG Sublingual Tablet [Nitrostat] , Notes to Pharmacist: nitroglycerin 0.4 MG Sublingual Tablet [Nitrostat]Original Medicationnitroglycerin 0.4 MG Sublingual Tablet [Nitrostat] *Reorder from [facility] for eRx and Interaction Alerts*, Not-Taking psyllium 520 MG Oral Capsule ORAL , Notes to Pharmacist: psyllium 520 MG Oral CapsuleOriginal Medicationpsyllium 520 MG Oral Capsule *Reorder from [facility] for eRx and Interaction Alerts*, Medication List reviewed and reconciled with the patient * Allergies: M orphine: Allergy - Onset Date 05/03/2021, Tape: Allergy. Objective: * Vitals: * Examination: C onstitutional: Constitutional T he patient is awake, alert, well developed, well groomed and well nourished. D ermatologic: Skin findings: b ilateral, Skin is thin, atrophic and lacking pedal hair. Ulcer: T here is an ulceration present on sub left 2nd mtpj. The ulceration measures cm length 0.8 cm x 0.7 width x 0.2 cm [...] Capillary refill: b ilaterally, greater than 3 seconds.? Assessment: * Assessment: 1. 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 O ther acute osteomyelitis, left ankle and foot - M86.172 ?3. T ype 2 diabetes mellitus with diabetic polyneuropathy - E11.42 Plan: * Treatment: 2. O ther acute osteomyelitis, left ankle and [...] the use of orthotic devices and bracing. * Follow Up: 3 Weeks,wound check (Reason: per patient request,extended to 3 weeks but he agrees to call if any changes) * Billing Information: * Visit Code: 72825 Office Visit, Est Pt., Level 3. * Procedure Codes: * Electronic signature of MIKALA ALBERTO DPM on 01/22/2025 at 07:33 PM CDT Sign off status: Pending * Provider: Alana ALBERTO Date: 0 12/02/2024 Generated for Esperanza gray/Uziel/Christopher on: 0 01/22/2025 07:33 PM CDT History and Physical Notes * HPI (History of Present Illness) Category Sub-Category Detail Notes Category Not es HPI Follow Up Visit Patient presents for follow up visit for wound check., Patient states their problem is, improving., MA: mf Examination Category Sub-Category Detail Notes Category Not es Constitutional Constitutional The patient is a wake, alert, well developed, well groomed and well nourished Dermatologic Skin findings: bilateral, Skin is thin, atrophic and lacking pedal hair Ulcer: There is an ulcerati on present on sub left 2nd mtpj. The ulceration measures cm length 0.8 cm x 0.7 width x 0.2 cm depth probing to deep tissue. There is no longer periwound erythema or blistering. The wound base is 30/70 fibrotic/granular, has mild macerated tissue at rim. There was 0.2 cm undermining in all directions. The borders are hyperkeratotic. The drainage is mild serous The wound has no foul odor. It is full thickness. Musculoskeletal Muscle Strength Muscle [...] 20s Neurologic Sharp sensation: bilaterally dec reased [place] Sergio 5.07 monofilament and sharp/dull sensation to the level of Gross sensation Gross sensation is i ntact to light touch Vascular Dorsalis pedis pulse: bilateral, 1/4 Posterior tibial pulse: bilaterally, 1/4 Capillary refill: bilaterally, greater than 3 seconds
--- OUTSIDE RECORDS SUMMARY | 2024-12-23 03:30 | XMS_ITS ---
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 Name Role Phone WHIT ALBERTO Unavailable [phone] Umair Alvarez Unavailable Unavailable Allergies Allergen (clinical drug ingredient) Drug/Non Drug Allergy documented on EMR Reaction Allergy Type Onset Date Status morphine Morphine Unknown Drug Allergy 05/03/2021 active Tape Unknown Allergy Active REASON FOR VISIT *Wound check Medications Medication SIG (Take, Route, Frequency, Duration) Notes Start Date End Date Status traMADol HCl 50 MG 1 tablet as needed Orally Once a day Active Vitamin B 12 250 MCG 2 lozenges Orally Once a day Active Metoprolol Tartrate 25 MG 1 tablet with food Orally Twice a day Active Omeprazole 40 MG 1 capsule 1/2 to 1 hour before morning meal Orally Once a day Active Flomax Active Cephalexin 250 MG 1 capsule Orally Once a day; Duration: 10 day(s) Active 14 ACTUAT fluticasone propionate 0.25 MG/ACTUAT / salmeterol 0.05 MG/ACTUAT Dry Powder Inhaler [Advair] INTRAPULMONARY 14 ACTUAT fluticasone propionate 0.25 MG/ACTUAT / salmeterol 0.05 MG/ACTUAT Dry Powder Inhaler [Advair]Original [id number] ACTUAT fluticasone propionate 0.25 MG/ACTUAT / salmeterol 0.05 MG/ACTUAT Dry Powder I 05/03/19 22 Bobby-Tyler redd Wixela Inhub 250-50 MCG/ACT 1 puff Inhalation Twice a day Active psyllium 520 MG Oral Capsule ORAL psyllium 520 MG Oral CapsuleOriginal Medicationpsyllium 520 MG Oral Capsule *Reorder from [facility] for eRx and Interaction Alerts* 05/03/19 Not-Takin g nitroglycerin 0.4 MG Sublingual Tablet [Nitrostat] nitroglycerin 0.4 MG Sublingual Tablet [Nitrostat]Original Medicationnitroglycerin 0.4 MG Sublingual Tablet [Nitrostat] *Reorder from [facility] for eRx and Interaction Alerts* 05/03/19 22 Not-Takin g Finasteride 5 MG 1 tablet Orally Once a day Active Aspirin 81 MG Oral Capsule ORAL aspirin 81 MG Oral CapsuleOriginal Medicationaspirin 81 MG Oral Capsule *Reorder from [facility] for eRx and Interaction Alerts* 05/03/19 Active Pravastatin Sodium 40 MG Oral Tablet ORAL pravastatin sodium 40 MG Oral TabletOriginal Medicationpravastatin sodium 40 MG Oral Tablet *Reorder from [facility] for eRx and Interaction Alerts* 05/03/19 Active Vital Signs Height 72 in 12/23/2024 Weight 186 lbs 12/23/2024 BMI 25.22 kg/m2 12/23/2024 Height-cm 182.88 cm 12/23/2024 Weight-kg 84.37 kg 12/23/2024 Encounters Encounter Location Date Provider Diagnosis [facility] [address] [id number] 12/23/2024 WHIT ALBERTO 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 12/23/2024 Type 2 diabetes mellitus with diabetic polyneuropathy [...] call if any changes Progress Notes * FAVIANBON LDOB:1954 (69 yo M)Acc No.[id number]:12/23/2024 Patient: BON SWEENEY Provider: Alana ALBERTO :1955 A ge:69 Y S ex:Male Date:12/23/2024 Address:[address] [place] [address] Subjective: * Chief Complaints: * 1 . *Wound check. * HPI: H PI: Follow Up Visit P atient presents for follow up visit for wound on left foot, Patient states their problem is, MA: nd. * ROS: G eneral / [...] sodium 40 MG Oral Tablet *Reorder from [facility] for eRx and Interaction Alerts*, Taking Aspirin 81 MG Oral Capsule ORAL , Notes to Pharmacist: aspirin 81 MG Oral CapsuleOriginal Medicationaspirin 81 MG Oral Capsule *Reorder from [facility] for eRx and Interaction Alerts*, Not-Taking 14 ACTUAT fluticasone propionate 0.25 MG/ACTUAT / salmeterol 0.05 MG/ACTUAT Dry Powder Inhaler [Advair] INTRAPULMONARY , Notes to Pharmacist: 14 ACTUAT fluticasone propionate 0.25 MG/ACTUAT / salmeterol 0.05 MG/ACTUAT Dry Powder Inhaler [Advair]Original [id number] ACTUAT fluticasone propionate 0.25 MG/ACTUAT / salmeterol 0.05 MG/ACTUAT Dry Powder I, Not-Taking nitroglycerin 0.4 MG Sublingual Tablet [Nitrostat] , Notes to Pharmacist: nitroglycerin 0.4 MG Sublingual Tablet [Nitrostat]Original Medicationnitroglycerin 0.4 MG Sublingual Tablet [Nitrostat] *Reorder from [facility] for eRx and Interaction Alerts*, Not-Taking psyllium 520 MG Oral Capsule ORAL , Notes to Pharmacist: psyllium 520 MG Oral CapsuleOriginal Medicationpsyllium 520 MG Oral Capsule *Reorder from [facility] for eRx and Interaction Alerts*, Medication List [...] ulceration measures cm length 0.8 cm x 0.4 width x 0.2 cm depth probing to deep tissue. There is no longer periwound erythema or blistering. The wound base is 30/70 fibrotic/granular, has mild macerated tissue at rim. There was no undermining in any directions. The borders are h yperkeratotic. no drainage. The wound has no foul odor. It [...] changes) * Billing Information: * Visit Code: 58771 Office Visit, Est Pt., Level 3. * Procedure Codes: * Electronic signature of MIKALA ALBERTO DPM on 01/22/2025 at 07:33 PM CDT Sign off status: Pending * Provider: Alana ALBERTO Date: 0 12/23/2024 Generated for Esperanza gray/Uziel/Christopher on: 0 01/22/2025 07:33 PM CDT History and Physical Notes * HPI (History of Present Illness) Category Sub-Category Detail Notes Category Not es HPI Follow Up Visit Patient presents for follow up visit for wound on left foot, Patient states their problem is, MA: nd Examination Category Sub-Category Detail Notes Category Not es Constitutional Constitutional The patient is a wake, alert, well developed, well groomed and well nourished Dermatologic Skin findings: bilateral, Skin is thin, atrophic and lacking pedal hair Ulcer: There is an ulcerati on present on sub left 2nd mtpj.The ulceration measures cm length 0.8 cm x 0.4 width x 0.2 cm depth probing to deep tissue.There is no longer periwound erythema or blistering. The wound base is 30/70 fibrotic/granular, has mild macerated tissue at rim. There was no undermining in any directions.The borders are hyperkeratotic.no drainage.The wound has no foul odor.It is full [...] 20s Neurologic Sharp sensation: bilaterally dec reased [place] Sergio 5.07 monofilament and sharp/dull sensation to the level of Gross sensation Gross sensation is i ntact to light touch Vascular Dorsalis pedis pulse: bilateral, 1/4 Posterior tibial pulse: bilaterally, 1/4 Capillary refill: bilaterally, greater than 3 seconds
--- OUTSIDE RECORDS SUMMARY | 2025-01-03 19:00 | XMS_ITS | Continuity of Care Document ---
Author Organization [facility] Address [address] [place] [address] Phone Care Team Providers Care Advice Line Rn Name Role Phone Marina Johnson Unavailable Unavailable Allergies, Adverse Reactions, Alerts Substance Reaction Status Criticality morphine Active No Information Medications Medication Instructions Dosage Effective Dates (start - stop) Status Comments TRAMADOL HCL 50 MG TABLET TAKE 1 TABLET BY MOUTH EVERY 6 HOURS NEEDED - Active METFORMIN HCL 500 MG TABLET TAKE 1 TABLET BY MOUTH TWICE A DAY WITH BREAKFAST AND DINNER - Active PRAVASTATIN SODIUM 40 MG TAB TAKE 1 TABLET BY MOUTH EVERY DAY IN THE EVENING - Active DONEPEZIL HCL 10 MG TABLET TAKE 1 TABLET BY MOUTH EVERY DAY IN THE EVENING - Active WIXELA 250-50 INHUB TAKE 1 PUFF BY MOUTH EVERY 12 HOURS IN THE MORNING AND IN THE EVENING - Active METOPROLOL TARTRATE 25 MG TAB TAKE 1 TABLET BY MOUTH TWICE A DAY - Active Fish Oil 1,000 mg (120 mg-180 mg) capsule take 1 capsule by oral route every day 1 capsule - Active acetaminophen 500 mg tablet take 2 tablet by oral route every 4 - 6 hours as needed not to exceed 8 tablets per 24hrs 1000 MG - Active Vitamin B-12 250 mcg tablet take 1 tablet by mouth once daily - Active Aspir-81 81 mg tablet,delayed release take 1 tablet by oral route every day - Active Fiber (calcium polycarbophil) 625 mg tablet Once a day - Active multivitamin tablet take 1 tablet by oral route every day 1 tablet - Active Flomax 0.4 mg capsule TAKE 1 CAPSULE BY MOUTH TWICE DAILY - Active finasteride 5 mg tablet take 1 tablet by oral route every day 5 MG - Active Procedures Procedure Date Pt inelig neg scrn javier OFFICE DUMHR-TVS-FNURLMSS Visit Complexity Inherent To E/M 2024 SYST BP >= 140 MM HG6 IT DIAST BP 80-89 MM HG BASIC METABOLIC PANEL(BMP) HEMOGLOBIN A1C HGA1C, GLYCO ROUTINE VENIPUNCTURE IL FALL RISK ASSESSMENT DOC'D PRES/ABSN URINE INCON ASSESS Pt inelig neg scrn giancarlopiter Admin influenza virus vac RIV3 VACCINE NO PRESERV IM PNEUMOVAX ADM MEDICARE Pneumococcal Conjugate Vaccine (PCV20) N OFFICE [id number]-UVD-[id number] BODY MASS INDEX DOCD SYST BP LT 130 MM HG DIAST BP < 80 MM HG CBC, INC PLATELETS AND DIFFERENTIAL COMPREHEN METABOLIC PANEL CMP HEMOGLOBIN A1C HGA1C, GLYCO LIPID PANEL MICROALBUMIN, QN (URINE) CREATININE, (U-R) PSA, TOTAL ROUTINE VENIPUNCTURE IL BASIC METABOLIC PANEL(BMP) CBC, INC PLATELETS AND DIFFERENTIAL HEMOGLOBIN A1C HGA1C, GLYCO Pt inelig neg scrn deprpiter OFFICE KAGJW-LQH-OPQBSMOO BODY MASS INDEX DOCD SYST BP LT 130 MM HG DIAST BP < 80 MM HG ROUTINE VENIPUNCTURE IL C-REACTIVE PROTEIN (CRP) CBC, INC PLATELETS AND DIFFERENTIAL RBC SED RATE, AUTOMATED OFFICE [id number]-IUT-PRBCVLJW BODY MASS INDEX DOCD SYST BP GE 130 - 139MM HG DIAST BP 80-89 MM HG ROUTINE VENIPUNCTURE IL DSCHRG MED/CURRENT MED MERGE OFFICE OKGGD-VWU-OQPRZQSH BODY MASS INDEX DOCD SYST BP GE 130 - 139MM HG DIAST BP < 80 MM HG Pt inelig neg scrn depres FALL RISK ASSESSMENT DOC'D PRES/ABSN URINE INCON ASSESS OFFICE YZWOR-FOA-NCJPSLYG BODY MASS INDEX DOCD SYST BP LT 130 MM HG DIAST BP < 80 MM HG CBC, INC PLATELETS AND DIFFERENTIAL COMPREHEN METABOLIC PANEL CMP HEMOGLOBIN A1C HGA1C, GLYCO LIPID PANEL MICROALBUMIN, QN (URINE) CREATININE, (U-R) PSA, TOTAL, SCREENING MEDICARE ONLY RBC SED RATE, AUTOMATED ROUTINE VENIPUNCTURE IL TELEPHONE E&M SERVICE BY A PHYSICIAN;5-1 0 MINUTES OF MEDICAL DISCUSSION OFFICE HIEPO-UCC-HKKPIHCP DSCHRG MED/CURRENT MED MERGE CBC, INC PLATELETS AND DIFFERENTIAL COMPREHEN METABOLIC PANEL CMP 3 Pt inelig neg scrn depres OFFICE SCZBJ-WRS-SIPCSJKT BODY MASS INDEX DOCD SYST BP LT 130 MM HG DIAST BP < 80 MM HG ROUTINE VENIPUNCTURE IL DSCHRG MED/CURRENT MED MERGE OFFICE ZCHXO-FUW-BSNUXSOR BODY MASS INDEX DOCD SYST BP LT 130 MM HG DIAST BP < 80 MM HG BASIC METABOLIC PANEL(BMP) HEMOGLOBIN A1C HGA1C, GLYCO Pt inelig neg scrn depres OFFICE CVHXB-QXY-QBLQMOPQ BODY MASS INDEX DOCD SYST BP LT 130 MM HG DIAST BP < 80 MM HG ROUTINE VENIPUNCTURE IL Pt inelig neg scrn depres FALL RISK ASSESSMENT DOC'D PRES/ABSN URINE INCON ASSESS OFFICE EDSJR-UBQ-[id number] BODY MASS INDEX DOCD SYST BP GE 130 - 139MM HG DIAST BP 80-89 MM HG Admin influenza virus vac Flu Vac, quad (RIV4), Preservative And A ntibiotic Free IM CBC, INC PLATELETS AND DIFFERENTIAL COMPREHEN METABOLIC PANEL CMP HEMOGLOBIN A1C HGA1C, GLYCO LIPID PANEL MICROALBUMIN, QN (URINE) CREATININE, (U-R) PSA, TOTAL, SCREENING MEDICARE ONLY ROUTINE VENIPUNCTURE FORM CHARGE Pt inelig neg scrn depres OFFICE RGFMV-HJD-LNXFREQZ BODY MASS INDEX DOCD SYST BP GE 130 - 139MM HG DIAST BP < 80 MM HG CBC, INC PLATELETS AND DIFFERENTIAL ROUTINE VENIPUNCTURE BASIC METABOLIC PANEL(BMP) HEMOGLOBIN A1C HGA1C, GLYCO ROUTINE VENIPUNCTURE THYROID STIMULATION HORMONE(TSH) 2021 Pt inelig neg scrn depres OFFICE OFHOK-VXP-HFUSYMRR BODY MASS INDEX DOCD SYST BP >= 140 MM HG6 IT DIAST BP >= 90 MM HG Fecal Occult Blood Mdcr Pt inelig neg scrn depres FALL RISK ASSESSMENT DOC'D PRES/ABSN URINE INCON ASSESS Admin influenza virus vac Flu Vac, quad (RIV4), Preservative And A ntibiotic Free IM OFFICE NNJFQ-EFL-HOLNJSEF BODY MASS INDEX DOCD SYST BP LT 130 MM HG DIAST BP < 80 MM HG CBC, INC PLATELETS AND DIFFERENTIAL COMPREHEN METABOLIC PANEL CMP HEMOGLOBIN A1C HGA1C, GLYCO LIPID PANEL MICROALBUMIN, QN (URINE) CREATININE, (U-R) PSA, TOTAL, SCREENING MEDICARE ONLY ROUTINE VENIPUNCTURE Pt inelig neg scrn depres OFFICE YFJJF-RKI-AYZCYIYZ BODY MASS INDEX DOCD SYST BP >= 140 MM HG6 IT DIAST BP 80-89 MM HG BASIC METABOLIC PANEL(BMP) CBC, INC PLATELETS AND DIFFERENTIAL ROUTINE VENIPUNCTURE DSCHRG MED/CURRENT MED MERGE Pt inelig neg scrn depres OFFICE WNPWH-HPM-DQFWPGVO BODY MASS INDEX DOCD SYST BP GE 130 - 139MM HG DIAST BP 80-89 MM HG Pt inelig neg scrn depres OFFICE IZXFJ-EOV-FNSVIXBI BODY MASS INDEX DOCD SYST BP GE 130 - 139MM HG DIAST BP 80-89 MM HG COVID-19, Amplified Probe Technique OFFICE ZIFDL-PXP-QPBJSYOP SYST BP LT 130 MM HG DIAST BP < 80 MM HG PULSE OXIMETRY, MULTIPLE Pt inelig neg scrn depres OFFICE TLCRD-TYN-FJBXMZDW BODY MASS INDEX DOCD SYST BP GE 130 - 139MM HG DIAST BP 80-89 MM HG BASIC METABOLIC PANEL(BMP) HEMOGLOBIN A1C HGA1C, GLYCO MICROALBUMIN, QN (URINE) CREATININE, (U-R) ROUTINE VENIPUNCTURE IL Pt inelig neg scrn depres FALL RISK ASSESSMENT DOC'D PRES/ABSN URINE INCON ASSESS Admin influenza virus vac Flu Vac, quad (RIV4), Preservative And A ntibiotic Free IM PNEUMOVAX ADM MEDICARE PNEUMOVAX IMMUNIZATION OFFICE FQNYX-DXG-VPLKMGXY BODY MASS INDEX DOCD SYST BP GE 130 - 139MM HG DIAST BP < 80 MM HG CBC, INC PLATELETS AND DIFFERENTIAL COMPREHEN METABOLIC PANEL CMP 0 HEMOGLOBIN A1C HGA1C, GLYCO LIPID PANEL MICROALBUMIN, QN (URINE) CREATININE, (U-R) PSA, TOTAL, SCREENING MEDICARE ONLY ROUTINE VENIPUNCTURE Pt inelig neg scrn javier OFFICE ECLPO-LPY-MEGFGESN BODY MASS INDEX DOCD SYST BP LT 130 MM HG DIAST BP < 80 MM HG I&D ABSCESS OR CYST-SIMPLE OFFICE XFOXG-CBN-VHBJVDEC BODY MASS INDEX DOCD SYST BP GE 130 - 139MM HG DIAST BP 80-89 MM HG HEMOGLOBIN A1C HGA1C, GLYCO ROUTINE VENIPUNCTURE Pt inelig neg scrn depres OFFICE MUFIO-SCA-YWEANJNZ BODY MASS INDEX DOCD SYST BP GE 130 - 139MM HG DIAST BP 80-89 MM HG Admin influenza virus vac FLU VACC 4 ROYAL 0.5mL DOSAGE BASIC METABOLIC PANEL(BMP) ROUTINE VENIPUNCTURE IL Pt inelig neg scrn depres OFFICE HJDHQ-MUA-YTOCTQIB BODY MASS INDEX DOCD SYST BP GE 130 - 139MM HG DIAST BP 80-89 MM HG Advance Directives Directive Yes / No Effective Date File Name No Information Encounters Encounter Description Practice Location Reason(s) For Visit Diagnoses Date Provider Providers Copied on Encounter [facility], [address], [place], [place], [address] , tel: [phone] [facility] No Information 0 5 Ilan Gray. [address] [place], [place], [address] , . tel:[phone] Referring Provider: Marina Talavera, [address] [place], [address] . tel:[phone] [facility], [address], [place], [place], [address] , tel: [phone] [facility] No Information Dec-0 5 Ilan Gray. [address] [place], [place], [address] , . tel:[phone] [facility], [address], [place], [place], [address] , tel: [phone] [facility] [place] Pain in left footDiabetes with skin ulcerNon-pressure chronic ulcer of skin of other sites with unspecified severityType 2 diabetes mellitus with foot ulcerElevated PSA [address] [facility] [place], [place], [address] , [place]. tel: [phone] [facility], [address], [place], [place], [address] , [place] tel: [phone] [facility] Essential hypertensionSynco pe and collapse [address] [place], [place], [address] , [place]. tel: [phone] OFFICE LZYWB-ABV-CC TAILED [facility], [address], [place], [place], [address] , [place] tel: [phone] [facility] Chronic Conditions (chief complaint)ch ronic conditions (chief complaint) Hypertensive heart disease with congestive heart failure, unspecified heart failure typeDiabetic ulcer of toe of left foot associated with type 2 diabetes mellitus, limited to breakdown of skinAtrial fibrillation, unspecified typeChronic bronchitis, unspecified chronic bronchitis typeAnomalous coronary artery originHyperlipide jose, unspecified hyperlipidemia typeDementia in other diseases classified elsewhere without behavioral disturbanceGastro esophageal reflux disease, esophagitis presence not specifiedNon-pres sure chronic 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 layer exposed 5 Ilan Gray. [address] [place], [address] , [place]. tel: [phone] Referring Provider: [place], [address] . tel:[phone] [facility], [address], [place], [place], [address] , [place] tel: [phone] [facility] No Information 5 Nathanael Cornejo. [address] [facility], [address] [address], [place], [place], [address] , [place]. tel: [phone] Referring Provider: [place], [address] . tel:[phone] [facility], [address], [place], [place], [address] , [place] tel: [phone] [facility] Hypertensive heart disease with heart failureType 2 diabetes mellitus without complication, unspecified whether usp insulin use [address] [place], [place], [address] , [place]. tel: [phone] Referring Provider: Umair Alvarez, [address] [place], [address] . tel:[phone] [facility], [address], [place], [place], [address] , tel: [phone] [facility] No Information [address] [place], [place], [address] , [place]. tel: [phone] [facility], [address], [place], [place], [address] , tel: [phone] [facility] No Information [address] [place], [place], [address] , [place]. tel: [phone] [facility], [address], [place], [place], [address] , [place] tel: [phone] [facility] Colon cancer screening [address] [place], [place], [address] , [place]. tel: [phone] OFFICE PYUMN-RIR-ZF TAILED [facility], [address], [place], [place], [address] , [place] tel: [phone] [facility] PX (chief complaint) Diabetic ulcer of toe of left foot associated with type 2 diabetes mellitus, limited to breakdown of skinAtrial fibrillation, unspecified typeChronic bronchitis, unspecified chronic bronchitis typeHypertensive heart disease with congestive heart failure, unspecified heart failure typeColon cancer screening [address] [place], [place], [address] , [place]. tel: [phone] Referring Provider: Umair Alvarez, [address] [place], [address] . tel:[phone] [facility], [address], [place], [place], [address] , [place] tel: [phone] [facility] No Information 4 Nathanael Cornejo. [address] [facility], [address] [address], [place], [place], [address] , [place]. tel: [phone] Referring Provider: Umair Alvarez, [address] [place], [address] . tel:[phone] [facility], [address], [place], [place], [address] , tel: [phone] [facility] Elevated PSAEssential hypertensionMixed hyperlipidemiaTyp e 2 diabetes mellitus without complication, unspecified whether usp insulin use [address] [place], [place], [address] , [place]. tel: [phone] Referring Provider: Umair Alvarez, [address] [place], [address] . tel:[phone] [facility], [address], [place], [place], [address] , [place] tel: [phone] [facility] Other osteomyelitis, ankle and foot 4 Ilan Gray. [address] [place], [address] , [place]. tel: [phone] [facility], [address], [place], [place], [address] , [place] tel: [phone] [facility] Elevated PSA [address] [place], [address] , [place]. tel: [phone] [facility], [address], [place], [place], [address] , tel: [phone] [facility] Hypertensive heart disease with heart failure [address] [place], [place], [address] , [place]. tel: [phone] [facility], [address], [place], [place], [address] , tel: [phone] [facility] No Information 4 Umair. [address] [place], [address] , [place]. tel: [phone] [facility], [address], [place], [place], [address] , tel: [phone] [facility] Intermittent diarrhea [address] [facility] [address] [place] [address], [address] , [place]. tel: [phone] Referring Provider: [place], [address] . tel:[phone] [facility], [address], [place], [place], [address] , tel: [phone] [facility] No Information 4 Nathanael Clemente. [address], [address] , . tel: [phone] Referring Provider: [place], [address] . tel:[phone] OFFICE WMVEG-GZF-BF TAILED [facility], [address], [place], [place], [address] , tel: [phone] [facility] chr conditions (chief complaint)Ch ronic Conditions (chief complaint) Chronic bronchitis, unspecified chronic bronchitis typeDementia in other diseases classified elsewhere without behavioral disturbanceAnomal ous coronary artery originDiabetic ulcer of toe of left foot associated with type 2 diabetes mellitus, limited to breakdown of skinGastroesophag eal reflux disease, esophagitis presence not specifiedHyperlip idemia, unspecified hyperlipidemia typeHypertensive heart disease with chronic diastolic congestive heart failureBody mass index [BMI] 24.0-24.9, adult [address] [place], [place], [address] , [place]. tel: [phone] Referring Provider: Umair Alvarez, [address] [place], [address] . tel:[phone] [facility], [address], [place], [place], [address] , [place] tel: [phone] [facility] No Information Jul-0 4 Nathanael Hernandezn. [address] [facility], [address] [address], [place], [place], [address] , [place]. tel: [phone] Referring Provider: Marina Talavera, [address] [place], [address] . tel:[phone] OFFICE [id number]-[id number] [facility], [address], [place], [place], [address] , [place] tel: [phone] [facility] left leg swelling (chief complaint) Non-pressure chronic ulcer of skin of other sites with unspecified severityDiabetes with skin ulcerOther acute osteomyelitis, left ankle and foot Jul-0 4 Ilan Gray. [address] [place], [place], [address] , [place]. tel:[phone] Referring Provider: Umair Alvarez, [address] [place], [address] . tel:[phone] [facility], [address], [place], [place], [address] , [place] tel: [phone] [facility] Other acute osteomyelitis, left ankle and foot Jun-0 [address] [place], [place], [address] , [place]. tel: [phone] [facility], [address], [place], [place], [address] , [place] tel: [phone] [facility] Other osteomyelitis, ankle and footVisit for wound check Fe-2 [address] [place], [place], [address] , [place]. tel: [phone] OFFICE [id number]-LQG-DY PANDED [facility], [address], [place], [place], [address] , tel: [phone] [facility] f/u (chief complaint) Body mass index [BMI] 25.0-25.9, adultDiabetes with skin ulcerNon-pressure chronic ulcer of skin of other sites with unspecified severity [address] [place], [place], [address] , [place]. tel: [phone] Referring Provider: Umair Alvarez, [address] [place], [address] . tel:[phone] [facility], [address], [place], [place], [address] , tel: [phone] [facility] Other osteomyelitis, ankle and foot [address] [place], [place], [address] , [place]. tel: [phone] [facility], [address], [place], [place], [address] , [place] tel: [phone] [facility] Essential hypertensionAnoma lous coronary artery originMixed hyperlipidemia [address] [place], [place], [address] , [place]. tel: [phone] [facility], [address], [place], [place], [address] , tel: [phone] [facility] Diabetic ulcer of toe of left foot associated with type 2 diabetes mellitus, limited to breakdown of skin [address] [place], [place], [address] , [place]. tel: [phone] [facility], [address], [place], [place], [address] , [place] tel: [phone] [facility] Anomalous coronary artery originSyncope and collapseEssential hypertension [address] [place], [place], [address] , [place]. tel: [phone] OFFICE UCAEI-BPV-BP [facility], [address], [place], [place], [address] , [place] tel: [phone] [facility] Chronic Conditions (chief complaint) Dementia in other diseases classified elsewhere without behavioral disturbanceChroni c bronchitis, unspecified chronic bronchitis typeAtrial fibrillation, unspecified typeHypertensive heart disease with congestive heart failure, unspecified heart failure typeGastroesophag eal reflux disease, esophagitis presence not specifiedDiabetic ulcer of toe of left foot associated with type 2 diabetes mellitus, limited to breakdown of skinHyperlipidemi a, unspecified hyperlipidemia typeChronic diastolic (congestive) heart failureClosed displaced fracture of left patella, unspecified fracture morphology, initial encounterRoutine medical examBody mass index [BMI] 25.0-25.9, adultAcute osteomyelitis 3 Ilan Gray. [address] [place], [place], [address] , [place]. tel: [phone] Referring Provider: [place], [address] . tel:[phone] [facility], [address], [place], [place], [address] , [place] tel: [phone] [facility] No Information 3 Nathanael Cornejo. [address] [address] [address], [place], [place], [address] , [place]. tel: [phone] Referring Provider: [place], [address] . tel:[phone] [facility], [address], [place], [place], [address] , [place] tel: [phone] [facility] PancolitisAcute osteomyelitisDiab etic ulcer of toe of left foot associated with type 2 diabetes mellitus, limited to breakdown of skinOther acute osteomyelitis, left ankle and footHyperlipidemi a, unspecified hyperlipidemia typeHypertensive heart disease with congestive heart failure, unspecified heart failure typeProstate cancer screening [address] [place] [address], [address] , [place]. tel: [phone] Referring Provider: [place], [address] . tel:[phone] TELEPHONE E&M SERVICE BY A PHYSICIAN;5- 10 MINUTES OF MEDICAL DISCUSSION [facility], [address], [place], [place], [address] , [place] tel: [phone] [facility] Encounter for follow-up examination after completed treatment for conditions other than malignant neoplasmInjury of left knee, initial encounter 3 Ilan Gray. [address] [place], [place], [address] , [place]. tel: [phone] Referring Provider: [place], [address] . tel:[phone] [facility], [address], [place], [place], [address] , [place] tel: [phone] [facility] Other acute osteomyelitis, left ankle and foot [address] [place], [place], [address] , [place]. tel: [phone] OFFICE HNMVJ-FYO-JL PANDED [facility], [address], [place], [place], [address] , [place] tel: [phone] [facility] fu (chief complaint) Acute osteomyelitis [address] [place], [place], [address] , [place]. tel: [phone] Referring Provider: [place], [address] . tel:[phone] [facility] [address], [place], [place], [address] , [place] tel: [phone] [facility] No Information 3 Nathanael Cornejo. [address] [facility], [address] [address], [place], [place], [address] , [place]. tel: [phone] Referring Provider: Marina Talavera, [address] [place], [address] . tel:[phone] OFFICE OWMFY-ZDM-JD [facility], [address], [place], [place], [address] , [place] tel: [phone] [facility] Patient encounter (chief complaint) Pancolitis 3 Talavera Marina. [address] [place], [place], [address] , [place]. tel: [phone] Referring Provider: Umair Alvarez, [address] [place], [address] . tel:[phone] OFFICE KHXHZ-SJY-SM [facility], [address], [place], [place], [address] , [place] tel: [phone] [facility] rash (chief complaint) Herpes zoster without complication [address] [place], [place], [address] , [place]. tel: [phone] Referring Provider: Umair Alvarez, [address] [place], [address] . tel:[phone] [facility], [address], [place], [place], [address] , [place] tel: [phone] [facility] Calculus of both kidneys [address] [place], [place], [address] , [place]. tel: [phone] [facility], [address], [place], [place], [address] , [place] tel: [phone] [facility] No Information 3 Nathanael Cornejo. [address] [place] [address], [address] , . tel: [phone] Referring Provider: Umair Alvarez, [address] [place], [address] . tel:[phone] OFFICE TREWA-IIM-HV TAILED [facility], [address], [place], [place], [address] , [place] tel: [phone] [facility] chr conditions (chief complaint) Anomalous coronary artery originAtrial fibrillation, unspecified typeChronic bronchitis, unspecified chronic bronchitis typeDementia in other diseases classified elsewhere without behavioral disturbanceGastro esophageal reflux disease, esophagitis presence not specifiedHyperlip idemia, unspecified hyperlipidemia typeThyroid noduleSenile purpuraHypertensi ve heart disease with congestive heart failure, unspecified heart failure typeBody mass index [BMI] 25.0-25.9, adultDiabetic ulcer of toe of left foot associated with type 2 diabetes mellitus, limited to breakdown of skin [address] [place], [place], [address] , [place]. tel: [phone] Referring Provider: [place], [address] . tel:[phone] [facility], [address], [place], [place], [address] , tel: [phone] [facility] Type 1 diabetes mellitus without complicationType 2 diabetes mellitus without complication, unspecified whether usp insulin usePresence of intraocular lens [address] [place], [address] , [place]. tel: [phone] [facility], [address], [place], [place], [address] , [place] tel: [phone] [facility] Screening for prostate cancer [address] [place], [address] , [place]. tel: [phone] OFFICE NFMGQ-JRQ-AP [facility], [address], [place], [place], [address] , [place] tel: [phone] [facility] preventive exam (chief complaint)px (chief complaint) Chronic bronchitis, unspecified chronic bronchitis typeChronic diastolic (congestive) heart failureType 2 diabetes mellitus with other circulatory complication, unspecified whether assistant terminal manager insulin use [address] [place], [address] , [place]. tel: [phone] Referring Provider: [place], [address] . tel:[phone] [facility], [address], [place], [place], [address] , tel: [phone] [facility] Essential (primary) hypertensionHyper lipidemia, unspecified hyperlipidemia typeScreening for prostate cancerType 2 diabetes mellitus without complication, unspecified whether assistant terminal manager insulin use [address] [place], [address] , . tel: [phone] Referring Provider: [place], [address] . [phone] [facility], [address], [place], [place], [address] , tel: [phone] [facility] No Information [address] [place], [address] , . tel: [phone] Referring Provider: [place], [address] . tel:[phone] OFFICE NIMJC-ADX-PJ [facility] Branch, [address], [place], [place], [address] , tel: [phone] Edon chronic conditions (chief complaint) DM type 2 with diabetic peripheral neuropathyHyperte nsive heart disease with congestive heart failure, unspecified heart failure typeThyroid noduleHyperlipide jose, unspecified hyperlipidemia typeDementia in other diseases classified elsewhere without behavioral disturbanceAtrial fibrillation, unspecified typeAnomalous coronary artery originGastroesoph ageal reflux disease, esophagitis presence not specifiedOther fatigueDiabetic ulcer of toe of left foot associated with type 2 diabetes mellitus, limited to breakdown of skin [address] [place], [place], [address] , . tel: [phone] Referring Provider: [place], [address] . tel:[phone] Branch, [address], [place], [place], [address] , tel: [phone] Rosario Type 2 diabetes mellitus without complication, unspecified whether assistant terminal manager insulin useHypertensive heart disease with chronic diastolic congestive heart failureOther fatigue 2 Umair. [place], [address] , . tel: [phone] Referring Provider: [place], [address] . tel:[phone] OFFICE GILNN-ABX-IH PANDED Branch, [address], [place], [place], [address] , tel: [phone] Rosario diabetic foot ulcer (chief complaint) Body mass index [BMI] 24.0-24.9, adultDiabetic ulcer of toe of left foot associated with type 2 diabetes mellitus, limited to breakdown of skinNon-pressure chronic ulcer of other part of left foot limited to breakdown of skin [address] [place], [place], [address] , . tel: [phone] Referring Provider: [place], [address] . tel:[phone] Branch, [address], [place], [place], [address] , tel: [phone] Rosario No Information 1 John. [place], [address] , . tel: [phone] Branch, [address], [place], [place], [address] , tel: [phone] Rosario Syncope and collapseEssential (primary) hypertension 1 [place], [address] , . tel: [phone] Branch, [address], [place], [place], [address] , tel: [phone] Rosario Presence of intraocular lens Jan- 1 English John. [place], [address] , . tel: [phone] [facility], [address], [place], [place], [address] , tel: [phone] [facility] Colon cancer screening Dec- 1 English John. [place], [address] , . tel: [phone] Referring Provider: [place], [address] . tel:[phone] OFFICE IURUO-WOM-RM [facility], [address], [place], [place], [address] , tel: [phone] Rosario Px (chief complaint) Body mass index (BMI) 23.0-23.9, adultDM type 2 with diabetic peripheral neuropathyHyperte nsive heart disease with congestive heart failure, unspecified heart failure type Dec- 1 English [address]. [place], [address] , . tel: [phone] Referring Provider: [place], [address] . tel:[phone] [facility], [address], [place], [place], [address] , tel: [phone] Rosario DM type 2 with diabetic peripheral neuropathyHyperte nsive heart disease with congestive heart failure, unspecified heart failure typeHyperlipidemi a, unspecified hyperlipidemia typeScreening for prostate cancer Dec- 1 English John. [place], [address] , [place]. tel: [phone] Referring Provider: [place], [address] . tel:[phone] OFFICE FZGFK-GWJ-VJ [facility], [address], [place], [place], [address] , tel: [phone] Rosario acute pain (chief complaint) Kidney laceration, unspecified laterality, initial encounterBody mass index (BMI) 24.0-24.9, adult Aug-3 1 [address]. [place], [address] , [place]. tel: [phone] Referring Provider: [place], [address] . tel:[phone] [email or web address], [address], [place], [place], [address] , tel: [phone] Edon Calculus of ureterUnspecified injury of ureter, sequela 1 [address] [place], [address] , [place]. tel: [phone] [facility] [email or web address], [address], [place], [place], [address] , [place] tel: [phone] Rosario No Information [address] [place], [address] , [place]. tel: [phone] Referring Provider: [place], [address] . tel:[phone] [email or web address], [address], [place], [place], [address] , tel: [phone] Rosario Calculus of ureter 1 [address]. [place], [address] , [place]. tel: [phone] OFFICE EUPFR-VLE-SE PANDED [facility], [address], [place], [place], [address] , tel: [phone] Edon orchitis (chief complaint) Body mass index (BMI) 24.0-24.9, adultOrchitis 1 [address]. [place], [address] , [place]. tel: [phone] Referring Provider: [place], [address] . tel:[phone] [email or web address], [address], [place], [place], [address] , tel: [phone] Edon Abscess of scrotum 1 [address] John. [place], [address] , [place]. tel: [phone] OFFICE CFYAQ-XXS-ME [facility], [address], [place], [place], [address] , tel: [phone] Edon testicular pain (chief complaint) Body mass index (BMI) 24.0-24.9, adultEncounter for screening for depressionAbscess , scrotum [address] [place], [place], [address] , . tel: [phone] Referring Provider: Umair Alvarez, [address] [place], [address] . tel:[phone] [facility], [address], [place], [place], [address] , tel: [phone] Rosario No Information [address] [place] [address], [address] , . tel: [phone] OFFICE FIOUM-BJZ-CV PANDED [facility], [address], [place], [place], [address] , tel: [phone] Rosario chest pain (chief complaint) Fever, unspecified fever causeBody achesAngina pectoris [address] [place], [place], [address] , . tel: [phone] Referring Provider: [place], [address] . tel:[phone] OFFICE RINDE-SFL-RU [facility], [address], [place], [place], [address] , tel: [phone] Rosario chronnic conditiuons (chief complaint) Body mass index (BMI) 25.0-25.9, adultAnomalous coronary artery originAtrial fibrillation, unspecified typeChronic bronchitis, unspecified chronic bronchitis typeDementia in other diseases classified elsewhere without behavioral disturbanceDiabet ic polyneuropathy associated with type 2 diabetes mellitusGastroeso phageal reflux disease, esophagitis presence not specifiedHyperten sive heart disease with chronic diastolic congestive heart failureHyperlipid emia, unspecified hyperlipidemia typeThyroid noduleSenile purpura 1 Umari. [place], [place], [address] , . tel:[phone] Referring Provider: [place], [address] . tel:[phone] [facility]ICE [facility], [address], [place], [place], [address] , tel: [phone] Rosario px (chief complaint) Hypertensive heart disease with congestive heart failure, unspecified heart failure typeThyroid noduleType 2 diabetes mellitus with other circulatory complication, unspecified whether usp insulin useBody mass index (BMI) 25.0-25.9, adult [address] [place], [place], [address] , . tel: [phone] Referring Provider: [place], [address] . tel:[phone] [email or web address], [address], [place], [place], [address] , tel: [phone] Rosario DM type 2 with diabetic peripheral neuropathyHyperte nsive heart disease with congestive heart failure, unspecified heart failure typeOther and unspecified hyperlipidemiaScr eening for malignant neoplasm of prostate 0 [address] [place], [place], [address] , . tel: [phone] Referring Provider: [place], [address] . tel:[phone] [email or web address], [address], [place], [place], [address] , [place] tel: [phone] Rosario Syncope and collapse [address] [place], [address] , [place]. tel: [phone] [email or web address], [address], [place], [place], [address] , tel: [phone] Rosario Mixed hyperlipidemiaSyn cope and collapse 0 [address] [place], [place], [address] , [place]. tel: [phone] OFFICE CDWKL-JCP-ZO [facility], [address], [place], [place], [address] , tel: [phone] Edon Telehealth (chief complaint)6 month (chief complaint) Anomalous coronary artery originChronic diastolic (congestive) heart failureDiabetic polyneuropathy associated with type 2 diabetes mellitusGastroeso phageal reflux disease, esophagitis presence not specifiedHyperlip idemia, unspecified hyperlipidemia typeHypertriglyce ridemiaBody mass index (BMI) 25.0-25.9, adultAtrial fibrillation, unspecified typeEarly onset Alzheimer's dementia without behavioral disturbanceDement ia in other diseases classified elsewhere without behavioral disturbance [address] [place], [place], [address] , . tel: [phone] Referring Provider: Umair Alvarez [address] [place], [address] . tel:[phone] OFFICE CKAKT-ROM-IP Formerly named [facility], [address], [place], [place], [address] , tel: [phone] Rosario boil on face above lip (chief complaint) Boil [address] [place], [place], [address] , [place]. tel: [phone] Referring Provider: Umair Alvarez [address] [place], [address] . tel:[phone] [facility], [address], [place], [place], [address] , [place] tel: [phone] Rosario Type 2 diabetes mellitus without complication, unspecified whether usp insulin useDM type 2 with diabetic peripheral neuropathy [address] [place], [place], [address] , . tel: [phone] Referring Provider: [place], [address] . tel:[phone] [facility]ICE [facility], [address], [place], [place], [address] , tel: [phone] Rosario 4 month follow up and referral to eye doctor (chief complaint) Chronic diastolic (congestive) heart failureShort-term memory lossDM type 2 with diabetic peripheral neuropathy [address] [place], [place], [address] , . tel: [phone] Referring Provider: [place], [address] . tel:[phone] [facility], [address], [place], [place], [address] , tel: [phone] Rosario Type 2 diabetes mellitus without complication, unspecified whether assistant terminal manager insulin use [address] [place], [place], [address] , . tel: [phone] OFFICE JVEWT-SRY-BN [facility], [address], [place], [place], [address] , tel: [phone] Rosario 3 month (chief complaint) Diabetic polyneuropathy associated with type 2 diabetes mellitusThyroid noduleHypertrigly ceridemia 9 [address] John[address] [place], [place], [address] , [place]. tel: [phone] Referring Provider: [place], [address] . tel:[phone] [facility], [address], [place], [place], [address] , tel: [phone] Rosario Hypertensive heart disease with chronic diastolic congestive heart failureChronic diastolic (congestive) heart failureChronic bronchitis, unspecified chronic bronchitis typeType 2 diabetes mellitus with other circulatory complication, unspecified whether usp insulin useGastroesophage al reflux disease, esophagitis presence not specifiedHyperlip idemia, unspecified hyperlipidemia typeAnomalous coronary artery originScreening for malignant neoplasm of prostateFatigue, unspecified type 9 [address] [place], [place], [address] , [place]. tel:[phone] Referring Provider: Umair Alvarez, [address] [place], [address] . tel:[phone] Family History Family Member Type Diagnosis Age At Onset Mother Problem (finding) Hearing deficiency Mother Problem (finding) hypertension Mother Problem (finding) Prediabetes Brother Problem (finding) malignant neoplasm of k idney Father Problem (finding) premature coronary hear t disease Immunizations Vaccine Date Status Comments Flublok, Trivalent, preservative free, 18+ yrs, 0.5mL dosage administered Source: New Immuniza tion Record Pneumococcal conjugate PCV20 administered Source: New Immunization Record Flublok, quadrivalent, preservative free, 0.5mL dosage administered Source: New Immunization Record Moderna (Low Dose) COVID19 Vaccine, 0.25mL per dose, booster dose administered Note: [facility] ; Source: Source Unspecified Flublok, quadrivalent, preservative free, 0.5mL dosage administered Source: New Immunization Record Moderna COVID19 Vaccine, 0.5 mL per dose, 2 doses, administered 28 days apart administered Note: done at [facility] ( date is accurate) ; Source: Source Unspecified Moderna COVID19 Vaccine, 0.5 mL per dose, 2 doses, administered 28 days apart administered Note: done at [facility] ( date is accurate) ; Source: Source Unspecified Pneumococcal polysaccharide PPV23 administered Source: New Immuniza tion Record Flublok, quadrivalent, preservative free, 0.5mL dosage administered Source: New Immunization Record Fluzone Quad, split virus, 0.5mL dosage administered Source: New Immuniza tion Record Payers Payer name Insurance type Covered libertarian ID Authoriza tion(s) [employer] MB [id number] [employer] MB [id number] [employer] MB [id number] [employer] MB [id number] [employer] MB [id number] [employer] MB [id number] [employer] MB [id number] [employer] MB [id number] [facility] [id number] Social History Type Description Quantity Date Captured Comments Alcohol Use Details Unknown Caffeine Use Details Unknown Tobacco Use Status No Information Smoking Status No Information Sex Male Gender Identity Male Chief Complaint And Reason For Visit No Information Reason For Referral Reason For Referral No Information Plan Of Treatment Date Type Action Status Goal Dietary manageme nt education, guidance, and counseling completed Goal Dietary manageme nt education, guidance, and counseling completed Goal Dietary manageme nt education, guidance, and counseling completed Goal Dietary manageme nt education, guidance, and counseling completed Goal Dietary manageme nt education, guidance, and counseling completed Goal Dietary manageme nt education, guidance, and counseling completed Goal Dietary manageme nt education, guidance, and counseling completed Goal Dietary manageme nt education, guidance, and counseling completed Goal Dietary manageme nt education, guidance, and counseling completed Goal Dietary manageme nt education, guidance, and counseling completed Goal Dietary manageme nt education, guidance, and counseling completed Goal Dietary manageme nt education, guidance, and counseling completed Referral Ordered: Miesha Jimenez -Podiatry (related to Pain in left foot) ordered Referral Referred To: Miesha Jimenez Ordered: Referrals: Podiatry. Miesha Jimenez. Evaluation/diagnostic/treatment - Level 3 ordered Referral Ordered: Vineet Santana MD -Wound Care (related to Diabetic ulcer of toe of left foot associated with type 2 diabetes mellitus, limited to breakdown of skin) ordered Referral Referred To: Shira Graves DPM [address] [place], [phone] Ordered: Referrals: Podiatry. Shira Graves DPM. Evaluation/diagnostic/treatment - Level 3 ordered Referral Referred To: Vineet Santana MD [address] [facility]
[address], [phone] Ordered: Referrals: Wound Care. Vineet Santana MD. Evaluation/diagnostic/treatment - Level 3 ordered Referral Referred To: Xavier Perales MD [address] [place], [phone] Ordered: Referrals: Gastroenterology. Xavier Perales MD. Evaluation/diagnostic/treatment - Level 3 ordered Referral Ordered: Screening colonoscopy ordered Referral Ordered: Nathalia Alcala DPM -Podiatry (related to Other osteomyelitis, ankle and foot) ordered Referral Referred To: Nathalia Alcala DPM [address] [place], [phone] Ordered: Referrals: Podiatry. Nathalia Alcala DPM. Evaluation/diagnostic/treatment - Level 3 ordered Referral Ordered: Demarcus Kaur -Allopathic & Osteopathic Physicians : Urology (related to Elevated PSA) ordered Referral Referred To: Demarcus Kaur [address] [facility]
DIV SURG UROLOGY, [facility] [address] [place], [place], [phone] Ordered: Referrals: Urology. Demarcus Kaur. Evaluation/diagnostic/treatment - Level 3 Appointment date/timeframe: 12/18/2023 ordered Referral Ordered: Orlando Chua -Allopathic & Osteopathic Physicians : Internal Medicine : Cardiovascular Disease (related to Hypertensive heart disease with congestive heart failure, unspecified heart failure type) ordered Referral Referred To: Orlando Chua [address] [place], [place], [phone] Ordered: Referrals: Cardiology. Orlando Chua. Evaluation/diagnostic/treatment - Level 3 ordered Referral Referred To: [address] [facility] [address] [place], [phone] Ordered: Referrals: Gastroenterology. [address]. Evaluation/diagnostic/treatment - Level 3 ordered Referral Ordered: Luna Terrazas -Wound Care (related to Visit for wound check) ordered Referral Ordered: Nathalia Alcala -Wound Care (related to Other osteomyelitis, ankle and foot) ordered Referral Referred To: Luan Terrazas Ordered: Referrals: Wound Care. Luna Terrazas. Evaluation/diagnostic/treatment - Level 3 Appointment date/timeframe: 06/18/2023 ordered Referral Referred To: Nathalia Alcala Ordered: Referrals: Wound Care. Nathalia Alcala. Evaluation/diagnostic/treatment - Level 3 Appointment date/timeframe: 06/21/2023 ordered Referral Ordered: Dr Nathalia Alcala -Podiatry (related to Other osteomyelitis, ankle and foot) ordered Referral Referred To: Dr Nathalia Alcala Ordered: Referrals: Podiatry. Dr Nathalia Alcala. Evaluation/diagnostic/treatment - Level 3 Appointment date/timeframe: 06/22/2023 ordered Referral Ordered: Orlando Chua -Cardiology (related to Essential hypertension) ordered Referral Referred To: Orlando Chua Ordered: Referrals: Cardiology. Orlando Chua. Evaluation/diagnostic/treatment - Level 3 Appointment date/timeframe: 04/24/2023 ordered Referral Ordered: Complete transthoracic echocardiography (TTE) with Doppler ordered Referral Ordered: Alex Hayden MD -Infectious Disease (related to Diabetic ulcer of toe of left foot associated with type 2 diabetes mellitus, limited to breakdown of skin) ordered Referral Ordered: Zaid Sabillon MD -Orthopedic Surgery (related to Closed displaced fracture of left patella, unspecified fracture morphology, initial encounter) ordered Referral Referred To: Zaid Sabillon MD [address] [facility]
[address] [place], [phone] Ordered: Referrals: Orthopedic Surgery. Zaid Sabillon MD. Evaluation/diagnostic/treatment - Level 3 ordered Referral Referred To: Alex Hayden MD [address] [facility]
[address] [place], [phone] Ordered: Referrals: Infectious Disease. Alex Hayden MD. Evaluation/diagnostic/treatment - Level 3 Appointment date/timeframe: 02/21/2023 ordered Referral Ordered: [facility] -Wound Care (related to Herpes zoster without complication) ordered Referral Referred To: [facility] Ordered: Referrals: Wound Care. [facility]. Evaluation/diagnostic/treatment - Level 3 ordered Referral Ordered: Demarcus Kaur MD -Urology (related to Calculus of both kidneys) ordered Referral Referred To: Bill Tello [address] [facility]
[address] [place], [phone] Ordered: Referrals: Ophthalmology. Bill Tello. Evaluation/diagnostic/treatment - Level 3 Appointment date/timeframe: 05/09/2022 ordered Referral Referred To: Demarcus Kaur MD [address] [place], [phone] Ordered: Referrals: Urology. Demarcus Kaur MD. Evaluation/diagnostic/treatment - Level 3 Appointment date/timeframe: 05/09/2022 ordered Referral Referred To: Carlos Zelaya [address] [facility]
[address] [place], [phone] Ordered: Referrals: Podiatry. Carlos Zelaya. Evaluation/diagnostic/treatment - Level 3 ordered Referral Referred To: Bill Tello [address] [facility]
[address] [place], [phone] Ordered: Referrals: Licensed Psychologist. Bill Tello. Evaluation/diagnostic/treatment - Level 3 Appointment date/timeframe: 02/22/2021 ordered Referral Referred To: Olu Cordero MD [address] [facility]
[address] [place], [phone] Ordered: Referrals: Urology. Olu Cordero MD. Evaluation/diagnostic/treatment - Level 3 ordered Referral Referred To: Luke Chong MD Ordered: Referrals: Urology. Luke Chong MD. Evaluation/diagnostic/treatment - Level 3 ordered Referral Referred To: [address] [place] [address], [address] [phone] Ordered: Thyroid ultrasound ordered Referral Referred To: Orlando Chua MD [address] [facility] [address] [place], [phone] Ordered: Referrals: Cardiology. Orlando Chua MD. Evaluation/diagnostic/treatment - Level 3 Appointment date/timeframe: 12/01/2019 ordered Referral Referred To: Deandre Acevedo MD [address] [place], [phone] Ordered: Referrals: Ophthalmology. Deandre Acevedo MD. Evaluation/diagnostic/treatment - Level 3 Appointment date/timeframe: 03/09/2019 ordered Appointment Sebas Cardona BOOKED Appointment Sebas Cardona BOOKED Patient Education Diarrhea: Care Instruct ions completed History Of Present Illness Encounter Date Complaint History Of Prese nt Illness Chronic Conditions *See Chronic Conditions HPI chronic conditions *See Chronic Conditions HPI PX Chronic conditio nsdiabetic ulcer-- doign well-- controlled on medhtn hf-- controlled iwth medafib-- non recurrent, no ac neededexercise-- cantimmunizationsscreenings-- needs colonosocpymood-- goodsleep-- up and downmemory-- ok chr conditions Chronic Conditions *See Chronic Conditions HPI left leg swelling 68 year old nadia ortega who presents with left lower leg swelling for the past few weeks. He has a known diabetic foot ulcer and ostemyelitis. He was following with ID but was released one month ago. He reports having erythema, edema and warmth to right great toe, distal right foot and ankle. He reports this is unchanged. He is being treated by wound care for diabetic foot ulcer at [facility] once a week and has home health care twice weekly. He has no fever, chills, body aches hosp f/u chronic diabetic ulcer-- on abx, but pt says they say it was not infected, seeing foot dr and wound care Chronic Conditions *See Chronic Conditions HPI hospital fu osteomyeleitis-- on iv abx, is doing themminimal pain in footfrom diabetic foot woundno feversnurse is coming out to check blood Patient encounter Chief complain t: ER followup.67 year old male who presents for ER followup. He was evaluated on 12/08/22 for abdominal pain and diarrhea for the previous 2 days. He had fever of 102-103F. He treated with Tylenol and Aleve. He complained of abdominal cramping and green diarrhea. He had abdominal CT which showed pancolitis. He was started on Zofran and Augmentin. His labs were unremarkable outside of mildly low hgb that is stable. Patient reports he still has symptoms. He complains of abdominal pain but this is improving and continues to have diarrhea. He reports the volume of diarrhea is less. He describes as mucusy, dark, green. He reports nausea. rash The patient pres ents for rash. This episode began 3 days ago. The symptom(s) are described as improving. Affected area(s) include chest and trunk. The denies aggravating factors such as clothing and dry air. Additional information: getting better, gabapentin helping. chr conditions htn with chf-- c ontrolled on meddm-- with neuropathy-- controlled on medzdementia-- controlled on med, functioning wellgerd-- controlled on medhld-- controlled on medbrinchityis-- controlled with wixelaafib-- no blood thinner bc no recurrencecoronary artery anomalous-- no chest painthyroid nodule-- -- no clinical fu needed per u/s px Chronic conditio nshf-- controlled on meddm with [employer]-- controlledbronchitis-- breathing is up and downdiet-- low saltexercise-- not much latelyimmunizations-- flu block todayscreenings--utdmood-- goodsleepmemory-- stable preventive exam chronic conditions DM - E11.42-- controlledDementia - F02.80-- stable on medsHTN w/ HF - I11.0-- controlled on medCOPD - J44.9-- wrose latelyA Fib - I48.91-- just on asafatigue--cant get back to normal after surgeryMalformation of Coronary Vessels - Q24.5-- seen on scansGERD - K21.9-- controlled on medThyroid Nodule - E04.1-- very smallHLD - E78.5-- controlled on statin diabetic foot ulcer started as b oil a week ago, was draining pusnow dry, still open a bit, no drainage Px chronic conditio nsdm-- controlled on medcopd-- controlled on medhtn with hf-- controlleddiet--okexercise-- not muchscreening-- will do fit test for colon cancer screeningimmunizations-- flu shot todaymood---okmemory-- stable acute pain kidney laceratio n-- after surgery, after kidney stone removal attempt orchitis orchitis-- still okn abxfeeling much betterstill has an indurated areanot uncomfortable testicular pain Location is left scrotum. There is radiation to groin. The describes it as sharp. Symptom is aggravated by activity. Relieving factors include scrotal support. Associated symptoms include swelling. Additional information: pt has draining abcess. chest pain The patient pres ents with a complaint of chest pain. The patient also complains of diaphoresis, dyspnea and fatigue. Relevant history for this patient includes personal history of coronary artery disease. The symptoms are not aggravated by anxiety or exertion. The chest pain is associated with headache. Additional information: pt felt like this before previous cardiac episodes. chronnic conditiuons DM - E11.42 -- thinks its controlled, no reports of increased neuropathyAlzheimer's - G30.0-- stable, good days and badDementia - F02.80-- see aboveHTN w/ HF - I11.0-- bp okCHF - I50.32-- no leg swellingCOPD - J44.9-- breathinig has been goodA Fib - I48.91-- no recent problems, no ac needed per cardioMalformation of Coronary Vessels - Q24.5-- seen on cathGERD - K21.9-- cointrolled on medThyroid Nodule - E04.1-- seen on u/s , no wrok up neededHLD - E78.5-- controlled on statin px chronic conditio nsE11.59: DM2 w/ other circ. complic.-- ciontrolled, has htn also, got eye exam, neuropathy is about the sameI11.0: hyperten. HD w/ HF-- no leg gednolcbG08.1: thyroid nodule-- hasnt had US in a whilecopd-- baseline sobdiet-- eating okexercise-- regularscreening--utdimmunizations-- flu shotmood-- doing wellmemory-- stable 6 month E11.42: DM2 w/ p olyneuropathy-- controlled on mteformin, stable neuropathy--tolerable, got annual eye examdementia-- on on donepezil, pt doing wellI11.0: hyperten-- bp mvvicysvqpW68.32: chronic diastolic HF-- controlled on metoprolol, no leg iqulouehP65.9: COPD-- breathing is okatrial fibrillation---no pwcenmwkhkM12.1: thyroid nodule-- has been stable, no clinical odyswujJ87.1: hyperglyceridemia-- on sttain with no muscle pgtilI29.9: GERD-- controlled on ojduhiaiseZ13.5: malformation coronary vessels-- no chest pain Telehealth discussion was juju monte overphone and then brief visual exam was done while pt was in car due to covid 19. boil on face above lip worsening , started two days agovery painful, hasnt come to headstarted as a pimplerd around area 4 month follow up an d referral to eye doctor dm-- needs eye exam, some decreased sensation in feetcopd-- has good releuif with advairshort term memory loss- has been using donepezilhf-- no leg swelling 3 month DM 2 w/polyneuro kate, E11.42. Internal Medicine 05/19/18. , on metforminThyroid nodule, E04.1. Internal Medicine 05/19/18.----will get results of us,hypertriglycedemia-- on statin Functional Status Date Functional Assessmen t No Information Instructions Date Instruction Additional Infor aga We will refer you to wound care at [place] today Related to Non-pressure chronic 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 layer exposed Continue to work on increasing exercise such as walking. Continue to limit salt intake. Monitor your home blood pressure. Call our office if blood pressure is consistently over 140/90 Related to Hypertensive heart disease with congestive heart failure, unspecified heart failure type Continue OTC medication as neede d Related to Gastroesophageal reflux disease, esophagitis presence not specified Continue Wixela Related to Chron ic bronchitis, unspecified chronic bronchitis type Continue donepezil Related to De mentia in other diseases classified elsewhere without behavioral disturbance Continue MetforminCA [facility] [phone] Related to Diabetic ulcer of toe of left foot associated with type 2 diabetes mellitus, limited to breakdown of skin Continue to follow w debora global compensation director Related to Anomalous coronary artery origin Continue statin Related to Hyper lipidemia, unspecified hyperlipidemia type will monitor for recurrence Rela darlene to Atrial fibrillation, unspecified type continue medslow salt diet Relat ed to Hypertensive heart disease with congestive heart failure, unspecified heart failure type continue medscontinu e to monitor foot Related to Diabetic ulcer of toe of left foot associated with type 2 diabetes mellitus, limited to breakdown of skin will monitor for recurrence Rela darlene to Atrial fibrillation, unspecified type continue inhaler Related to 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, unspecified chronic bronchitis type Medication management Fall Risk Prevention Urinary Incontinence continue medslow salt diet Relat ed to Hypertensive heart disease with chronic diastolic congestive heart failure continue wound carecheck a1c Rel ated to Diabetic ulcer of toe of left foot associated with type 2 diabetes mellitus, limited to breakdown of skin continue medshealthy diet Relate d to Hyperlipidemia, unspecified hyperlipidemia type will continue to monitor as need ed Related to Anomalous coronary artery origin continue medsavoid trigger foods Related to Gastroesophageal reflux disease, esophagitis presence not specified continue inhaler Related to 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, unspecified chronic bronchitis type continue medsstay active Related to Dementia in other diseases classified elsewhere without behavioral disturbance Dietary management e ducation, guidance, and counseling Related to Body mass index (BMI) 24.0-24.9, adult Medication management Continue to follow w ith wound care and home health Related to Other acute osteomyelitis, left ankle and foot Continue to follow w ith wound care and home health Related to Non-pressure chronic ulcer of skin of other sites with unspecified severity Continue to follow w ith wound care and home health Related to Diabetes with skin ulcer see above Related to Non-p ressure chronic ulcer of skin of other sites with unspecified severity continue medssee podiatry Relate d to Diabetes with skin ulcer Dietary management e ducation, guidance, and counseling Related to Body mass index (BMI) 25.0-25.9, adult Medication management went through wound c are orders from wound doc with and pt, and watched perform she had good technique and hydgienerec HH SN once a week and change once a week and then wound clinic once a week on fridays Related to Diabetic ulcer of toe of left foot associated with type 2 diabetes mellitus, limited to breakdown of skin Continue to follow with Dr Lynda lopez Related to Acute osteomyelitis Followup in 6 months We recommend getting the updated COVID booster if you have not yet. You should wait at least 2 months after your last COVID vaccine to get this updated vaccineYou are due for colon cancer screening. We will mail a FIT test to your houseWe highly recommend getting a flu vaccine NABIL Related to Routine medical exam Continue to follow with ortho Re lated to Closed displaced fracture of left patella, unspecified fracture morphology, initial encounter Continue to work on low fat diet and increase regular exercise with goal of walking at least 30 minutes 3-5 times per week Related to Hyperlipidemia, unspecified hyperlipidemia type Continue to work on increasing exercise such as walking. Continue to limit salt intake. Monitor your home blood pressure. Call our office if blood pressure is consistently over 140/90 Related to Hypertensive heart disease with congestive heart failure, unspecified heart failure type continue meds and low salt diet Related to Chronic diastolic (congestive) heart failure Continue to follow w ith wound careWe will check labs todayGet annual diabetic eye exams Related to Diabetic ulcer of toe of left foot associated with type 2 diabetes mellitus, limited to breakdown of skin continue meds as needed Related to Gastroesophageal reflux disease, esophagitis presence not specified continue Wixela inhaler daily Re lated to Chronic bronchitis, unspecified chronic bronchitis type Continue aricept lyla lyTry to stay active Related to Dementia in other diseases classified elsewhere without behavioral disturbance Followup with global compensation director Relat ed to Atrial fibrillation, unspecified type Dietary management e ducation, guidance, and counseling Related to Body mass index (BMI) 25.0-25.9, adult Urinary Incontinence Fall Risk Prevention continue abxcall if anything changes Related to Acute osteomyelitis Medication management We will check labs t odayMonitor for abdominal pain, diarrhea worsening and let us know if this occursEat a bland diet for the next 1-2 days then slowly increaseStay hydrated Related to Pancolitis use gabapentin as needed Related to Herpes zoster without complication Medication management continue inhaler Related to 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, unspecified chronic bronchitis type follwo up with cardiology Relate d to Atrial fibrillation, unspecified type continue to follow u p with cardiology Related to Anomalous coronary artery origin continue medswalk dailyu Related to Dementia in other diseases classified elsewhere without behavioral disturbance will continue to monitor Related to Senile purpura continue medslow salt diet Relat ed to Hypertensive heart disease with congestive heart failure, unspecified heart failure type continue meds as needed Related to Gastroesophageal reflux disease, esophagitis presence not specified keep pressure offcon tinue medsget annual eye exam Related to Diabetic ulcer of toe of left foot associated with type 2 diabetes mellitus, limited to breakdown of skin continue medshealthy diet Relate d to Hyperlipidemia, unspecified hyperlipidemia type no follow up needed Related to T hyroid nodule Medication management Dietary management e ducation, guidance, and counseling Related to Body mass index (BMI) 25.0-25.9, adult continue medsannual eye examincrease exercise Related to Type 2 diabetes mellitus with other circulatory complication, unspecified whether usp insulin use continue inhaler Related to 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, unspecified chronic bronchitis type continue meds and low salt diet Related to Chronic diastolic (congestive) heart failure Fall Risk Prevention Medication management Urinary Incontinence will continue to monitor Related to Diabetic ulcer of toe of left foot associated with type 2 diabetes mellitus, limited to breakdown of skin will check cbc and tsh Related t o Other fatigue continue meds Related to Gastr oesophageal reflux disease, esophagitis presence not specified will continue to monitor Related to Anomalous coronary artery origin no workup needed Related to Thyr oid nodule continue medsget annual eye exam Related to DM type 2 with diabetic peripheral neuropathy continue meds Related to Demen tia in other diseases classified elsewhere without behavioral disturbance continue medslow salt diet Relat ed to Hypertensive heart disease with congestive heart failure, unspecified heart failure type will continue to monitor Related to Atrial fibrillation, unspecified type continue statin Related to Hyper lipidemia, unspecified hyperlipidemia type continue inhalers Related to Chr onic obstructive pulmonary disease, unspecified COPD type Medication management no infection current julio send to podiatry Related to Diabetic ulcer of toe of left foot associated with type 2 diabetes mellitus, limited to breakdown of skin see above Related to Non-p ressure chronic ulcer of other part of left foot limited to breakdown of skin Medication management Dietary management e ducation, guidance, and counseling Related to Body mass index (BMI) 24.0-24.9, adult continue medsget annual eye exam Related to DM type 2 with diabetic peripheral neuropathy continue medslow salt diet Relat ed to Hypertensive heart disease with congestive heart failure, unspecified heart failure type continue inhalers Related to Chr onic obstructive pulmonary disease, unspecified COPD type Medication management Urinary Incontinence Fall Risk Prevention Dietary management e ducation, guidance, and counseling Related to Body mass index (BMI) 23.0-23.9, adult follow up with urology Related t o Kidney laceration, unspecified laterality, initial encounter Dietary management e ducation, guidance, and counseling Related to Body mass index (BMI) 24.0-24.9, adult Medication management continue abxfollow up with urolo gy Related to Orchitis Dietary management e ducation, guidance, and counseling Related to Body mass index (BMI) 24.0-24.9, adult Medication management go to er for incision and draina ge Related to Abscess, scrotum Dietary management e ducation, guidance, and counseling Related to Body mass index (BMI) 24.0-24.9, adult Medication management go to er for evaluationpt agreed Related to Angina pectoris Medication management will continue to monitor Related to Senile purpura no workup needed Related to Thyr oid nodule continue meds Related to Demen tia in other diseases classified elsewhere without behavioral disturbance continue statin Related to Hyper lipidemia, unspecified hyperlipidemia type continue medslow salt diet Relat ed to Hypertensive heart disease with chronic diastolic congestive heart failure will check hba1c Related to Diab etic polyneuropathy associated with type 2 diabetes mellitus continue meds Related to Gastr oesophageal reflux disease, esophagitis presence not specified continue inhalerget covid vaccin e Related to Chronic bronchitis, unspecified chronic bronchitis type will continue to monitor Related to Atrial fibrillation, unspecified type follow up with urology Related t o Anomalous coronary artery origin Dietary management e ducation, guidance, and counseling Related to Body mass index (BMI) 25.0-25.9, adult Medication management continue inhalers Related to Chr onic obstructive pulmonary disease, unspecified COPD type at goalcontinue heal thy diet and exercise Related to Type 2 diabetes mellitus with other circulatory complication, unspecified whether assistant terminal manager insulin use at goalcontinue medslow salt t Related to Hypertensive heart disease with congestive heart failure, unspecified heart failure type will get thyroid ultrasound Rela darlene to Thyroid nodule Fall Risk Prevention Dietary management e ducation, guidance, and counseling Related to Body mass index (BMI) 25.0-25.9, adult Urinary Incontinence Medication management continue donepezilstay active Re lated to Early onset Alzheimer's dementia without behavioral disturbance see above Related to Hyper triglyceridemia continue omeprazole Related to G astroesophageal reflux disease, esophagitis presence not specified continue metforminannual eye exa m Related to Diabetic polyneuropathy associated with type 2 diabetes mellitus continue statin Related to Hyper lipidemia, unspecified hyperlipidemia type continue inhalers Related to Chr onic obstructive pulmonary disease, unspecified COPD type no recent problemsco ntinue to monitor Related to Atrial fibrillation, unspecified type continue to follow u p with cardiology Related to Anomalous coronary artery origin continue metoprolol Related to C hronic diastolic (congestive) heart failure Medication management Dietary management e ducation, guidance, and counseling Related to Body mass index (BMI) 25.0-25.9, adult will open up and send abx Relate d to Boil Medication management continue advair Related to Chron ic obstructive pulmonary disease, unspecified COPD type will check [id number] metform in Related to DM type 2 with diabetic peripheral neuropathy low salt dietmonitor weight Rela darlene to Chronic diastolic (congestive) heart failure continue donepezil Related to Sh ort-term memory loss Immunizations at goalcontinue meds contineu healthy diet Related to Diabetic polyneuropathy associated with type 2 diabetes mellitus will get records and see if another us is needed Related to Thyroid nodule continue statin Related to Hyper triglyceridemia Medication management Assessments Type Assessment Date No Information Patient Care Teams Name Effective Dates (start - stop) Status Members No Information
--- OUTSIDE RECORDS SUMMARY | 2025-01-13 03:30 | XMS_ITS ---
Author Organization [facility] Address [address] [place], [place] [id number] Care Team Providers Care Spud Driller Name Role Phone WHIT ALBERTO Unavailable [phone] Umair Alvarez Unavailable Unavailable Allergies Allergen (clinical drug ingredient) Drug/Non Drug Allergy documented on EMR Reaction Allergy Type Onset Date Status morphine Morphine Unknown Drug Allergy 05/03/2021 active Tape Unknown Allergy Active REASON FOR VISIT *Wound check left foot Medications Medication SIG (Take, Route, Frequency, Duration) Notes Start Date End Date Status Wixela Inhub 250-50 MCG/ACT 1 puff Inhalation Twice a day Active psyllium 520 MG Oral Capsule ORAL psyllium 520 MG Oral CapsuleOriginal Medicationpsyllium 520 MG Oral Capsule *Reorder from [facility] for eRx and Interaction Alerts* 05/03/19 22 Not-Takin g Vitamin B 12 250 MCG 2 lozenges Orally Once a day Active nitroglycerin 0.4 MG Sublingual Tablet [Nitrostat] nitroglycerin 0.4 MG Sublingual Tablet [Nitrostat]Original Medicationnitroglycerin 0.4 MG Sublingual Tablet [Nitrostat] *Reorder from [facility] for eRx and Interaction Alerts* 05/03/19 22 Not-Takin g Cephalexin 250 MG 1 capsule Orally Once a day; Duration: 10 day(s) Active Flomax Active Finasteride 5 MG 1 tablet Orally Once a day Active Pravastatin Sodium 40 MG Oral Tablet ORAL pravastatin sodium 40 MG Oral TabletOriginal Medicationpravastatin sodium 40 MG Oral Tablet *Reorder from [facility] for eRx and Interaction Alerts* 05/03/19 22 Active Aspirin 81 MG Oral Capsule ORAL aspirin 81 MG Oral CapsuleOriginal Medicationaspirin 81 MG Oral Capsule *Reorder from [facility] for eRx and Interaction Alerts* 05/03/19 22 Active 14 ACTUAT fluticasone propionate 0.25 MG/ACTUAT / salmeterol 0.05 MG/ACTUAT Dry Powder Inhaler [Advair] INTRAPULMONARY 14 ACTUAT fluticasone propionate 0.25 MG/ACTUAT / salmeterol 0.05 MG/ACTUAT Dry Powder Inhaler [Advair]Original [id number] ACTUAT fluticasone propionate 0.25 MG/ACTUAT / salmeterol 0.05 MG/ACTUAT Dry Powder I 05/03/19 22 Not-Takin g traMADol HCl 50 MG 1 tablet as needed Orally Once a day Active Omeprazole 40 MG 1 capsule 1/2 to 1 hour before morning meal Orally Once a day Active Metoprolol Tartrate 25 MG 1 tablet with food Orally Twice a day Active Vital Signs Height 72 in 01/13/2025 Weight 186 lbs 01/13/2025 BMI 25.22 kg/m2 01/13/2025 Height-cm 182.88 cm 01/13/2025 Weight-kg 84.37 kg 01/13/2025 Encounters Encounter Location Date Provider Diagnosis [facility] [address] [id number] 01/13/2025 WHIT ALBERTO Non-pressure chronic ulcer of other part of left foot with necrosis of bone L97.524 ; Other acute osteomyelitis, left ankle and foot M86.172 and Type 2 diabetes mellitus with diabetic polyneuropathy E11.42 Assessments Encounter Date Diagnosis (ICD Code) Assessment Notes Treatment Notes Treatment Clinical Notes Section Notes 01/13/2025 Non-pressure chronic ulcer of other part of [...] expose bone, tendon, ligament or joint capsule) 01/13/2025 Other acute osteomyelitis, left ankle and foot [...] the use of orthotic devices and bracing. 01/13/2025 Type 2 diabetes mellitus with diabetic polyneuropathy [...] Notes * FAVIANBON LDOB:1954 (69 yo M)Acc No.[id number]:01/13/2025 Patient: Marcelo RONBON PORTER Provider: Alana ALBERTO :1955 A ge:69 Y S ex:Male Date:01/13/2025 Address:[address] [place] [address] Subjective: * Chief Complaints: * 1 . *Wound check left foot. * HPI: H PI: Follow Up Visit P atient presents for follow up visit for wound care, Patient states their problem is, improving., MA: OM. * ROS: G eneral / Constitutional: Patient [...] sodium 40 MG Oral Tablet *Reorder from [facility] for eRx and Interaction Alerts*, Taking Aspirin 81 MG Oral Capsule ORAL , Notes to Pharmacist: aspirin 81 MG Oral CapsuleOriginal Medicationaspirin 81 MG Oral Capsule *Reorder from [facility] for eRx and Interaction Alerts*, Not-Taking 14 ACTUAT fluticasone propionate 0.25 MG/ACTUAT / salmeterol 0.05 MG/ACTUAT Dry Powder Inhaler [Advair] INTRAPULMONARY , Notes to Pharmacist: 14 ACTUAT fluticasone propionate 0.25 MG/ACTUAT / salmeterol 0.05 MG/ACTUAT Dry Powder Inhaler [Advair]Original [id number] ACTUAT fluticasone propionate 0.25 MG/ACTUAT / salmeterol 0.05 MG/ACTUAT Dry Powder I, Not-Taking nitroglycerin 0.4 MG Sublingual Tablet [Nitrostat] , Notes to Pharmacist: nitroglycerin 0.4 MG Sublingual Tablet [Nitrostat]Original Medicationnitroglycerin 0.4 MG Sublingual Tablet [Nitrostat] *Reorder from [facility] for eRx and Interaction Alerts*, Not-Taking psyllium 520 MG Oral Capsule ORAL , Notes to Pharmacist: psyllium 520 MG Oral CapsuleOriginal Medicationpsyllium 520 MG Oral Capsule *Reorder from [facility] for eRx and Interaction Alerts*, Medication List [...] 2nd mtpj. The ulceration measures cm length 0.5 cm x 0.4 width x 0.2 cm depth probing to deep tissue. There is no longer periwound erythema or blistering. The wound base is 10/90 fibrotic/granular, has mild macerated tissue at rim. [...] use of orthotic devices and bracing. * Preventive Medicine: Screenings: F all risk screening F all Risk Assessment: N o falls in the past year. * Follow Up: 3 Weeks,wound check (Reason: per patient request,extended to 3 weeks but he agrees to call if any changes) * Billing Information: * Visit Code: 64345 Office Visit, Est Pt., Level 3. * Procedure Codes: * Electronic signature of MIKALA ALBERTO DPM on 01/22/2025 at 07:33 PM CDT Sign off status: Pending * Provider: Alana ALBERTO Date: 0 01/13/2025 Generated for Esperanza gray/Uziel/Christopher on: 0 01/22/2025 07:33 PM CDT History and Physical Notes * HPI (History of Present Illness) Category Sub-Category Detail Notes Category Not es HPI Follow Up Visit Patient presents for follow up visit for wound care, Patient states their problem is, improving., MA: OM Examination Category Sub-Category Detail Notes Category Not es Constitutional Constitutional The patient is a wake, alert, well developed, well groomed and well nourished Dermatologic Skin findings: bilateral, Skin is thin, atrophic and lacking pedal hair Ulcer: There is an ulcerati on present on sub left 2nd mtpj.The ulceration measures cm length 0.5 cm x 0.4 width x 0.2 cm depth probing to deep tissue.There is no longer periwound erythema or blistering. The wound base is 10/90 fibrotic/granular, has mild macerated tissue at rim. [...] 20s Neurologic Sharp sensation: bilaterally dec reased [place] Sergio 5.07 monofilament and sharp/dull sensation to the level of Gross sensation Gross sensation is i ntact to light touch Vascular Dorsalis pedis pulse: bilateral, 1/4 Posterior tibial pulse: bilaterally, 1/4 Capillary refill: bilaterally, greater than 3 seconds
--- NOTE | ~2025-01-22 | XR_ITS ---
EXAMINATION: XR ankle RT min 3V, 01/22/2025 17:50 CDT HISTORY: Fall COMPARISON: No comparisons available. Findings: Nondisplaced fracture of the distal fibula. No significant degenerative changes. Soft tissue swelling. Impression: Distal fibular fracture Reviewed, dictated and finalized at location P. Impression: Distal fibular fracture
[2025-01-22 17:47] VITALS: BP 138/92; PULSE 97; RESP 16; TEMP 36.1; O2SAT 95
--- NOTE | 2025-01-22 18:33 | ED.LOWEXIN ---
HPI - Extremity Injury (Lower) General Chief Complaint: Extremity Injury, Lower <Belkis Jonas PA-C - Last Filed: 01/25/25 10:14> Stated Complaint: right ankle pain <EFRAIN Hernandez Last Filed: 01/25/25 10:14> Time Seen by Provider: 01/22/25 18:33 <Belkis Jonas PA-C - Last Filed: 01/25/25 10:14> Focused HPI: This is a 69 year old male that presents to the ER for right ankle pain. Reports he stepped in a pot hole. Reports pain, swelling, decreased ROM. GENERAL: Well-appearing, well-nourished, and in no acute distress. HEAD: Normocephalic, atraumatic. CHEST: Clear to auscultation. ?No respiratory distress. HEART: Regular rate and rhythm.? NEURO: ?Alert and oriented x3. Patient screened in triage and initial orders placed.? ?Additional care and disposition to be based upon?diagnostic testing and treatment. <Belkis Jonas PA-C - Last Filed: 01/25/25 10:14> Focused HPI: This is a 69 year old male that presents to the ER for right ankle pain. Reports he stepped in a pot hole. Reports pain, swelling, decreased ROM. GENERAL: Well-appearing, well-nourished, and in no acute distress. HEAD: Normocephalic, atraumatic. CHEST: Clear to auscultation. ?No respiratory distress. HEART: Regular rate and rhythm.? NEURO: ?Alert and oriented x3. Patient screened in triage and initial orders placed.? ?Additional care and disposition to be based upon?diagnostic testing and treatment. <Taya Antonio PA-C - Last Filed: 01/22/25 20:46> Source: patient <EFRAIN Perdue Last Filed: 01/22/25 20:46> Mode of arrival: ambulatory <EFRAIN Perdue Last Filed: 01/22/25 20:46> Limitations: no limitations <EFRAIN Perdue Last Filed: 01/22/25 20:46> History of Present Illness HPI Narrative: Agree with above HPI. Denies any other injuries, HI, LOC. <Taya Antonio PA-C - Last Filed: 01/22/25 20:46> Related Data Home Medications: Home Medications ?Medication ?Instructions ?Recorded ?Confirmed ?Last Taken ?Type acetaminophen 500 mg tablet (Pain 500 mg PO Q6H PRN Pain 05/24/23 05/24/23 Unknown History Reliever (acetaminophen)) ascorbic acid (vitamin C) 1,000 mg 1 g PO DAILY 05/24/23 05/24/23 Unknown History tablet aspirin 81 mg tablet,delayed 81 mg PO DAILY 05/24/23 05/24/23 Unknown History release (Adult Low Dose Aspirin) cefuroxime axetil 500 mg tablet 500 mg PO Q12H 05/24/23 05/24/23 Unknown History cyanocobalamin (vitamin B-12) 250 250 mcg PO DAILY 05/24/23 05/24/23 Unknown History mcg tablet donepezil 10 mg tablet 10 mg PO HS 05/24/23 05/24/23 Unknown History doxycycline hyclate 100 mg capsule 100 mg PO BID 05/24/23 05/24/23 Unknown History finasteride 5 mg tablet 5 mg PO DAILY 05/24/23 05/24/23 Unknown History fluticasone 250 mcg-salmeterol 50 1 inh inhalation Q12H 05/24/23 05/24/23 Unknown History mcg/dose blistr powdr for inhalation (Advair Diskus) metformin 500 mg tablet 500 mg PO BID 05/24/23 05/24/23 Unknown History metoprolol tartrate 25 mg tablet 25 mg PO BID 05/24/23 05/24/23 Unknown History multivit with minerals-iron 18 1 tablet PO DAILY 05/24/23 05/24/23 Unknown History mg-folic ac 400 mcg-vit K 25 mcg tablet (Adults Multivitamin) naproxen sodium 220 mg capsule 220 mg PO Q12H PRN Pain 05/24/23 05/24/23 Unknown History nitroglycerin 0.4 mg sublingual 0.4 mg sublingual Q5-15M PRN Chest 05/24/23 05/24/23 Unknown History tablet Pain omeprazole 40 mg capsule,delayed 40 mg PO DAILY 05/24/23 05/24/23 Unknown History release pravastatin 40 mg tablet 40 mg PO DAILY 05/24/23 05/24/23 Unknown History tamsulosin 0.4 mg capsule 0.4 mg PO BID 05/24/23 05/24/23 Unknown History tramadol 50 mg tablet 50 - 100 mg PO Q4-6H PRN Pain 05/24/23 05/24/23 Unknown History vitamin B complex 1 cap PO DAILY 05/24/23 05/24/23 Unknown History <Belkis Jonas PA-C - Last Filed: 01/25/25 10:14> Allergies/Adverse Reactions: Allergies Allergy/AdvReac Type Severity Reaction Status Date / Time buspirone Allergy Unknown Unknown Verified 01/22/25 17:47 hydrocodone Allergy Unknown FEELS Verified 01/22/25 17:47 WEIRD, SWEATING, NO RASH, NO DIFFCULTY BREATHING morphine Allergy Irritable Verified 01/22/25 17:47 <Belkis Jonas PA-C - Last Filed: 01/25/25 10:14> Review of Systems Review of Systems: All systems reviewed & are unremarkable except as noted in HPI. <Taya Antonio PA-C - Last Filed: 01/22/25 20:46> All systems reviewed & are unremarkable except as noted in HPI and below <Taya Antonio PA-C - Last Filed: 01/22/25 20:46> [facility] [place] Family History Family History: Family History Mother Family history of heart disease in male family member before age 55 Father Acute myocardial infarction Sibling Patient's sister is in good health Patient's brother is in good health Family history of malignant neoplasm Other Family history of cardiovascular disease Hypertension <Belkis Jonas PA-C - Last Filed: 01/25/25 10:14> Social History Social History: Social History Smoking status: Former smoker Alcohol intake: never Substance use: never Substance use type: does not use Living arrangements: with family Spiritual care concerns: No <Belkis Jonas PA-C - Last Filed: 01/25/25 10:14> Exam Narrative: GENERAL: Well appearing, well-nourished, non-toxic, in no acute distress. HEAD: Normocephalic, atraumatic. RESPIRATORY: Airway patent, respirations nonlabored. CARDIOVASCULAR: Regular rate and rhythm. Pedal pulses are strong and intact. MUSCULOSKELETAL: Moves all extremities. No gross deformities. Moderate swelling to right lateral malleoli with focal tenderness to palpation. Sensation intact. SKIN: Warm, dry, normal color. NEURO: A&O X3. Speech clear. Steady gait. No ataxic movements. PSYCHIATRIC: Appropriate mood and affect. Normal interaction. <Taya Antonio PA-C - Last Filed: 01/22/25 20:46> Course Vital Signs Vital signs: Vital Signs Temperature 97.0 F L 01/22/25 17:47 Pulse Rate 97 01/22/25 17:47 Respiratory Rate 16 01/22/25 17:47 Blood Pressure 138/92 H 01/22/25 17:47 Pulse Oximetry 95 01/22/25 17:47 Temperature 97.0 F L 01/22/25 17:47 Pulse Rate 97 01/22/25 17:47 Respiratory Rate 16 01/22/25 17:47 Blood Pressure 138/92 H 01/22/25 17:47 Pulse Oximetry 95 01/22/25 17:47 <Beklis Jonas PA-C - Last Filed: 01/25/25 10:14> Vital Signs Temperature 97.0 F L 01/22/25 17:47 Pulse Rate 97 01/22/25 17:47 Respiratory Rate 16 01/22/25 17:47 Blood Pressure 138/92 H 01/22/25 17:47 Pulse Oximetry 95 01/22/25 17:47 Temperature 97.0 F L 01/22/25 17:47 Pulse Rate 97 01/22/25 17:47 Respiratory Rate 16 01/22/25 17:47 Blood Pressure 138/92 H 01/22/25 17:47 Pulse Oximetry 95 01/22/25 17:47 <Taya Antonio PA-C - Last Filed: 01/22/25 20:46> MDM - Extremity Injury (Lower) MDM Narrative Medical decision making narrative: Patient?s injury is consistent with musculoskeletal etiology. No signs of neurologic or vascular compromise on physical examination. Compartments are soft without signs of compartment syndrome. XR right ankle showing distal fibular fracture. Pain is consistent with exam and injury. Patient is felt to be stable for discharge home and further outpatient management and treatment. Placed in short leg posterior splint. Patient has crutches. Advised will need to follow-up with orthopedics for further evaluation. Discussed rice therapy, given return precautions. Patient has tramadol at home that he can use. He is comfortable taking. Discharged in stable condition. <Taya Antonio PA-C - Last Filed: 01/22/25 20:46> Medical Records Attestation: I reviewed the patient's medical records. <EFRAIN Perdue Last Filed: 01/22/25 20:46> Imaging Data Attestation: I personally reviewed and interpreted this imaging study as follows: <EFRAIN Perdue Last Filed: 01/22/25 20:46> Radiologist's impression: ITS Impressions Ankle X-Ray 01/22/25 17:59 Impression: Distal fibular fracture <EFRAIN Perdue Last Filed: 01/22/25 20:46> Critical Care Time Critical Care Time Critical Care Time: No <EFRAIN Hernandez Last Filed: 01/25/25 10:14> Discharge Plan Discharge Clinical Impression: Fracture of distal end of right fibula Qualifiers: Encounter type: initial encounter Fracture type: closed Fracture morphology: other fracture Qualified Code(s): S82.831A - Other fracture of upper and lower end of right fibula, initial encounter for closed fracture <EFRAIN Hernandez Last Filed: 01/25/25 10:14> Patient Disposition: Home <EFRAIN Hernandez Last Filed: 01/25/25 10:14> Condition: Stable <EFRAIN Hernandez Last Filed: 01/25/25 10:14> Instructions: Antibiotic Form, Ankle Fracture (ED), Splint Care (ED), P.R.I.C.E. Treatment (ED) <EFRAIN Hernandez Last Filed: 01/25/25 10:14> Additional Instructions: Continue Tylenol, ibuprofen as needed for pain. Use your home tramadol as needed for severe pain. Follow-up with orthopedics for further evaluation. Call office to make appointment first thing Saturday morning. Wear splint until seen by orthopedics. Use crutches, avoid weight-bearing until seen by orthopedics. Return to the ED if you experience new or worsening pain/swelling, new injury, numbness, or any other symptoms of concern. <Belkis Jonas PA-C - Last Filed: 01/25/25 10:14> Patient Language: Turkmen <Belkis Jonas PA-C - Last Filed: 01/25/25 10:14> Prescriptions: No Action cefuroxime axetil 500 mg tablet 500 mg PO Q12H metformin 500 mg tablet 500 mg PO BID fluticasone propion-salmeterol [Advair Diskus] 250-50 mcg/dose Blister With Device 1 inh INHALATION Q12H ascorbic acid (vitamin C) 1,000 mg Tablet 1 g PO DAILY doxycycline hyclate 100 mg capsule 100 mg PO BID pravastatin 40 mg tablet 40 mg PO DAILY donepezil 10 mg tablet 10 mg PO HS cyanocobalamin (vitamin B-12) 250 mcg Tablet 250 mcg PO DAILY omeprazole 40 mg capsule,delayed release(DR/EC) 40 mg PO DAILY aspirin [Adult Low Dose Aspirin] 81 mg Tablet,Delayed Release (Dr/Ec) 81 mg PO DAILY tramadol 50 mg tablet 50 - 100 mg PO Q4-6H PRN (Reason: Pain) acetaminophen [Pain Reliever (acetaminophen)] 500 mg Tablet 500 mg PO Q6H PRN (Reason: Pain) tamsulosin 0.4 mg capsule 0.4 mg PO BID finasteride 5 mg tablet 5 mg PO DAILY metoprolol tartrate 25 mg tablet 25 mg PO BID nitroglycerin 0.4 mg Tablet, Sublingual 0.4 mg SUBLINGUAL Q5-15M PRN (Reason: Chest Pain) Rx Instructions: do not exceed 3 doses per episode vitamin B complex Capsule 1 cap PO DAILY naproxen sodium 220 mg Capsule 220 mg PO Q12H PRN (Reason: Pain) Adults Multivitamin 18 mg iron-400 mcg-25 mcg Tablet 1 tablet PO DAILY <Belkis Jonas PA-C - Last Filed: 01/25/25 10:14> Follow-up/Referrals: Turkmen,Umair Alves MD [Primary Care Provider] Rik Diggs MD [Physician, Orthopedics] Referral Note: ORTHOPEDICS <Belkis Jonas PA-C - Last Filed: 01/25/25 10:14> Time of Disposition: 19:37 <Belkis Jonas PA-C - Last Filed: 01/25/25 10:14> 19:37 <Tyaa Antonio PA-C - Last Filed: 01/22/25 20:46>
--- OUTSIDE RECORDS SUMMARY | 2025-01-22 19:32 | XMS_ITS | Patient Health Record ---
Author Organization 1 OF Elena stanton [facility] Address [address] [place] [address] Care Team Providers Care Local Coordinator Name Role Phone Umair Alvarez Primary Care Provider Nathalia Roy Unavailable [phone] Reason For Referral No Information Problems Problem Type SNOMED Code ICD Code Onset Dates Problem Status W/U Status Risk Notes Problem Chronic ulcer of foot (637422590) Non-pressure chronic 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 layer exposed (L97.522) Active confirmed Problem Acquired deformity of left foot (disorder) (115701658) 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) Active confirmed Problem Chronic osteomyelitis of ankle and/or foot (693722714) Other osteomyelitis, ankle and foot (M86.8X7) Active confirmed Problem History of diabetic foot ulcer (situation) (61057713207719730 ) Personal history of diabetic foot ulcer (Z86.31) Active confirmed Problem Chronic osteomyelitis of ankle and/or foot (191703664) Other osteomyelitis of left foot (M86.8X7) Active confirmed Problem 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 of necrosis (L97.525) Active confirmed Problem Polyneuropathy due to type 2 diabetes mellitus (580398258) Type 2 diabetes mellitus with diabetic polyneuropathy, unspecified whether skilled nursing insulin use (E11.42) Active confirmed Encounters Encounter Location Date Provider Diagnosis [facility] [address] [place], [place] [id number] 01/31/2024 Nathalia [place] Type 2 diabetes mellitus with diabetic polyneuropathy, unspecified whether [facility] insulin use E11.42 and Personal history of diabetic foot ulcer Z86.31 [facility] [address] [place], [place] [id number] 02/28/2024 Nathalia [place] Type 2 diabetes mellitus with diabetic polyneuropathy, unspecified whether skilled nursing insulin use E11.42 and Personal history of diabetic foot ulcer Z86.31 Assessments Encounter Date Diagnosis (ICD Code) Assessment Notes Treatment Notes Treatment Clinical Notes Section Notes 01/31/2024 Personal history of diabetic foot ulcer (ICD-10 - Z86.31) 01/31/2024 Type 2 diabetes mellitus with diabetic polyneuropathy, unspecified whether [facility] insulin use (ICD-10 - E11.42) 02/28/2024 Type 2 diabetes mellitus with diabetic polyneuropathy, unspecified whether [facility] insulin use (ICD-10 - E11.42) 02/28/2024 Personal history of diabetic foot ulcer (ICD-10 - Z86.31) Plan Of Treatment No Information Insurance Providers Payer Name Payer Address Payer Phone Subscriber Number Group Number Insured Name Patient Relationship to Insured Coverage Start Date Coverage End Date [facility] [address] [address] [place] [address] [id number] Sebas Cardona Self - patient is the insured
--- OUTSIDE RECORDS SUMMARY | 2025-01-22 19:32 | XMS_ITS | Patient Health Record ---
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 Operator Name Role Phone WHIT ALBERTO Unavailable [phone] Umair Alvarez Unavailable Unavailable Allergies Allergen (clinical drug ingredient) Drug/Non Drug Allergy documented on EMR Reaction Allergy Type Onset Date Status morphine Morphine Unknown Drug Allergy 05/03/2021 active Tape Unknown Allergy Active Reason For Referral Reason Referral Request Diagnosis 1 Type 2 diabetes kaila itus with foot ulcer (E11.621) Referral Organization [facility] Referring Provider First Name WHIT Referring Provider Last Name DOLLY Referring Provider Speciality Podiatry Referred Provider Umair Alvarez Referred Provider Specialty General prac titioner Referral Priority Routine Reason Essence Referral ([id number]) Diagnosis 1 Non-pressure chronic 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 layer exposed (L97.522) Referred Organization [facility] Referred Provider JOLENE JAFFE Referred Address [address],[place], [id number], Referred Provider Specialty Podiatry Referral Priority Routine Reason ESSENCE REFERRAL REQ UEST ( APPOINTMENT: 12/23/2024 ) Diagnosis 1 Type 2 diabetes kaila itus with diabetic polyneuropathy (E11.42) Diagnosis 2 Pain in left foot (M 79.672) Diagnosis 3 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 ALVAREZ'S OFFICE. URBANO Kindra Amanda 12/21/2024 09:44:29 AM >I LEFT A VOICEMAIL FOR DR. ALVAREZ'S OFFICE REFERRAL DEPT TO CALL ME. URBANO Kindra Amanda 12/21/2024 01:12:19 PM >BRENDEN AT DR. ALVAREZ'S OFFICE LEFT A VOICEMAIL THEY HAVE NOT RECEIVED A REQUEST SINCE AUGUST. SHE WOULD LIKE TO KNOW IF WE HAVE USED ALL OF THE VISITS. THE PHONE NUMBER IS [phone]. I LEFT A VOICEMAIL RETURNING THE VOICEMAIL ON THE REFERRAL DEPARTMENT LINE. WE USED ALL 6 VISITS. WE NEED A NEW REFERRAL. [facility] Referral Priority Routine Reason ESSENCE REFERRAL ( L ADOLFO 3 ) [id number] Diagnosis 1 Pain in left foot (M 79.672) Referring Provider First Name Umair Referring Provider Last Name Referred Organization [facility] Referred Provider WHIT ALBERTO Referred Address [address] [address],[place], [place],[id number], Referred Provider Specialty Podiatry Referral Priority Routine Medications Medication SIG (Take, Route, Frequency, Duration) Notes Start Date End Date Status Wixela Inhub 250-50 MCG/ACT 1 puff Inhalation Twice a day Active psyllium 520 MG Oral Capsule ORAL psyllium 520 MG Oral CapsuleOriginal Medicationpsyllium 520 MG Oral Capsule *Reorder from [employer] for eRx and Interaction Alerts* 05/03/19 22 Bobby-Tyler redd Vitamin B 12 250 MCG 2 lozenges Orally Once a day Active traMADol HCl 50 MG 1 tablet as needed Orally Once a day Active Omeprazole 40 MG 1 capsule 1/2 to 1 hour before morning meal Orally Once a day Active Metoprolol Tartrate 25 MG 1 tablet with food Orally Twice a day Active Flomax Active Finasteride 5 MG 1 tablet Orally Once a day Active Pravastatin Sodium 40 MG Oral Tablet ORAL pravastatin sodium 40 MG Oral TabletOriginal Medicationpravastatin sodium 40 MG Oral Tablet *Reorder from [employer] for eRx and Interaction Alerts* 05/03/19 22 Active Aspirin 81 MG Oral Capsule ORAL aspirin 81 MG Oral CapsuleOriginal Medicationaspirin 81 MG Oral Capsule *Reorder from [employer] for eRx and Interaction Alerts* 05/03/19 22 Active 14 ACTUAT fluticasone propionate 0.25 MG/ACTUAT / salmeterol 0.05 MG/ACTUAT Dry Powder Inhaler [Advair] INTRAPULMONARY 14 ACTUAT fluticasone propionate 0.25 MG/ACTUAT / salmeterol 0.05 MG/ACTUAT Dry Powder Inhaler [Advair]Original [id number] ACTUAT fluticasone propionate 0.25 MG/ACTUAT / salmeterol 0.05 MG/ACTUAT Dry Powder I 05/03/19 22 Not-Takin g nitroglycerin 0.4 MG Sublingual Tablet [Nitrostat] nitroglycerin 0.4 MG Sublingual Tablet [Nitrostat]Original Medicationnitroglycerin 0.4 MG Sublingual Tablet [Nitrostat] *Reorder from [employer] for eRx and Interaction Alerts* 05/03/19 22 Not-Takin g Cephalexin 250 MG 1 capsule Orally Once a day; Duration: 10 day(s) Active Immunizations Vaccine Route Administration Date Status Comme nts Pneumococcal polysaccharide PPV23 Unknown 03/21/2020 Ad ministered Pneumococcal polysaccharide PPV23 Unknown 03/21/2020 Ad ministered Pneumococcal polysaccharide PPV23 Unknown 03/21/2020 Ad ministered Moderna Covid-19 Vaccine 1st dose Unknown 07/18/2020 Ad ministered Moderna Covid-19 Vaccine 1st dose Unknown 07/18/2020 Ad ministered Moderna Covid-19 Vaccine 1st dose Unknown 07/18/2020 Ad ministered Moderna Covid-19 Vaccine 1st dose Unknown 08/16/2020 Ad ministered Moderna Covid-19 Vaccine 1st dose Unknown 08/16/2020 Ad ministered Moderna Covid-19 Vaccine 1st dose Unknown 08/16/2020 Ad ministered Moderna Covid-19 Vaccine 1st dose Unknown 04/18/2021 Ad ministered Moderna Covid-19 Vaccine 1st dose Unknown 04/18/2021 Ad ministered Moderna Covid-19 Vaccine 1st dose Unknown 04/18/2021 Ad ministered Infuenza, trivalent, recombi nant, preservative free Unknown 03/17/2024 Administered Infuenza, trivalent, recombi nant, preservative free Unknown 03/17/2024 Administered Infuenza, trivalent, recombi nant, preservative free Unknown 03/17/2024 Administered Vital Signs Height-cm 182.88 cm 01/13/2025 Weight-kg 84.37 kg 01/13/2025 Height 72 in 01/13/2025 Weight 186 lbs 01/13/2025 BMI 25.22 kg/m2 01/13/2025 Encounters Encounter Location Date Provider Diagnosis [facility] [address] [place] [address] [id number] 09/30/2024 WHIT ALBERTO Cellulitis of left lower limb L03.116 ; Other acute osteomyelitis, left ankle and foot M86.172 ; Type 2 diabetes mellitus with diabetic polyneuropathy E11.42 ; Non-pressure chronic ulcer of other part of left foot with necrosis of bone L97.524 and Pain in left foot M79.672 [facility] [address] [place] [address] [id number] 10/07/2024 WHIT ALBERTO Cellulitis of left lower limb L03.116 ; Non-pressure chronic ulcer of other part of left foot with necrosis of bone L97.524 ; Other acute osteomyelitis, left ankle and foot M86.172 ; Type 2 diabetes mellitus with diabetic polyneuropathy E11.42 and Pain in left foot M79.672 [facility] [place] [address] [place] [address] [id number] 10/14/2024 WHIT ALBERTO Cellulitis of left lower limb L03.116 ; Other acute osteomyelitis, left ankle and foot M86.172 ; Type 2 diabetes mellitus with diabetic polyneuropathy E11.42 ; Non-pressure chronic ulcer of other part of left foot with necrosis of bone L97.524 and Pain in left foot M79.672 [facility] [place] [address] [place] [address] [id number] 10/28/2024 WHIT ALBERTO Cellulitis of left lower limb L03.116 ; Non-pressure chronic ulcer of other part of left foot with necrosis of bone L97.524 ; Other acute osteomyelitis, left ankle and foot M86.172 ; Type 2 diabetes mellitus with diabetic polyneuropathy E11.42 and Pain in left foot M79.672 [facility] [place] [address] [place] [address] [id number] 11/11/2024 WHIT ALBERTO Cellulitis of left lower limb L03.116 ; Non-pressure chronic ulcer of other part of left foot with necrosis of bone L97.524 ; Other acute osteomyelitis, left ankle and foot M86.172 ; Type 2 diabetes mellitus with diabetic polyneuropathy E11.42 and Pain in left foot M79.672 [facility] [place] [facility] [address] [place] [address] [id number] 12/02/2024 WHIT ALBERTO Non-pressure chronic ulcer of other part of left foot with necrosis of bone L97.524 ; Other acute osteomyelitis, left ankle and foot M86.172 and Type 2 diabetes mellitus with diabetic polyneuropathy E11.42 [facility] [place] [address] [place] [address] [id number] 12/23/2024 WHIT ALBERTO Non-pressure chronic ulcer of other part of left foot with necrosis of bone L97.524 ; Other acute osteomyelitis, left ankle and foot M86.172 and Type 2 diabetes mellitus with diabetic polyneuropathy E11.42 [facility] [place] [facility] [address] [place] [address] [id number] 01/13/2025 WHIT ALBERTO Non-pressure chronic ulcer of other part of left foot with necrosis of bone L97.524 ; Other acute osteomyelitis, left ankle and foot M86.172 and Type 2 diabetes mellitus with diabetic polyneuropathy E11.42 Assessments Encounter Date Diagnosis (ICD Code) Assessment Notes Treatment Notes Treatment Clinical Notes Section Notes 09/30/2024 Cellulitis of left lower limb (ICD-10 - L03.116) The area of cellulitis was evaluated and it should be noted that antibiotics were discussed and a close evaluation was performed to assess the need for IV antibiotics versus oral antibiotics. The lifetime risk of a foot ulcer [...] The dressings will be changed at home every day after shower by patient's . Cleanse with wound cleanser, pat dry, apply triple antibiotic ointment and melgisorb (dispensed) dry sterile gauze dispensed to foot, secure with paper tape at foot, then clean sock and post op shoe. Advised him to stay off of his feet as much as possible and take oral antibiotic as directed, rest and elevate and get good nutrition. No ALCOHOL, reduce sugar and salt. Eat high protein diet and vegetables and drink water daily. He will consider OTC orthotics vs post op shoe next visit. He will bring in the many DME and wound care items he has from previous wound treatment. 09/30/2024 Other acute osteomyelitis, left ankle and foot (ICD-10 - M86.172) Patient has had a wound with exposed bone which then healed temporarily and reopened. He has been treating it himself for 4 months. He is high risk for amputation and sepsis. Discussed in detail with patient and . Patient will call if any concerns or changes. We will collect recent labs and tests from PCP and other providers. We took a culture of the wound site today. I discussed anti-inflammatory treatment options and various means of immobilization with the patient. I educated the patient on offloading, supportive shoegear, and the use of orthotic devices and bracing. 10/07/2024 Cellulitis of left lower limb (ICD-10 - L03.116) The area of previous cellulitis has healed on current antibiotics which he will continue for the next 4 days. Re-evaluate next week. Culture did not grow [...] The dressings will be changed at home every day after shower by patient's . Cleanse with wound cleanser, pat dry, apply [...] vs post op shoe next visit. He will bring in the many DME and wound care items he has from previous wound treatment. 10/07/2024 Non-pressure chronic ulcer of other part of left foot with necrosis of bone (ICD-10 - L97.524) Discussed possible need for admission for IV antibiotics and surgical intervention Ulcer Debridement: Using a 15 blade, the ulcer was sharply debrided down to bleeding tissue. The nonviable tissue was sharply debrided down to the layer of subcutaneous tissue. A dry sterile dressing was applied. De [place] Grade 2 Ulcer Plan of [...] for offloading the wound. DE LEÓN GRADING SYSTEM Grade 0: Pre-ulcerative Lesion, healed ulcers, presence of bone deformity Grade 1: Superficial Ulcer without subcutaneous tissue involvement Grade 2: Penetration through the subcutaneous tissue (may expose bone, tendon, ligament or joint capsule) Grade 3: Osteitis, abscess or osteomyelitis Grade 4: Gangrene of the foot. Based on clinical findings, the patient has the following grade ulceration: 10/14/2024 Cellulitis of left lower limb (ICD-10 - [...] items he has from previous wound treatment. 10/14/2024 Other acute osteomyelitis, left ankle and foot (ICD-10 - M86.172) Patient has had a wound with exposed bone which then healed temporarily and reopened. He has been treating it himself for 4 months. He is high risk for amputation and sepsis. Discussed in detail with patient and . Patient will call if any concerns or changes. We have retrieved his most recent labs from pcp which were stable. I educated the patient on offloading, supportive shoegear, and the use of orthotic devices and bracing. 10/28/2024 Cellulitis of left lower limb (ICD-10 [...] bone, tendon, ligament or joint capsule) 11/11/2024 Cellulitis of left lower limb (ICD-10 [...] bone, tendon, ligament or joint capsule) 12/02/2024 Non-pressure chronic ulcer of other part [...] bone, tendon, ligament or joint capsule) 12/23/2024 Non-pressure chronic ulcer of other part [...] bone, tendon, ligament or joint capsule) 01/13/2025 Non-pressure chronic ulcer of other part [...] the use of orthotic devices and bracing. 09/30/2024 Type 2 diabetes mellitus with diabetic polyneuropathy [...] Dressings are selected based upon wound characteristics. 12/23/2024 Other acute osteomyelitis, left ankle and [...] use of orthotic devices and bracing. 12/02/2024 Other acute osteomyelitis, left ankle and [...] use of orthotic devices and bracing. 11/11/2024 Other acute osteomyelitis, left ankle and [...] use of orthotic devices and bracing. 10/28/2024 Other acute osteomyelitis, left ankle and [...] the use of orthotic devices and bracing. 10/07/2024 Other acute osteomyelitis, left ankle and foot (ICD-10 - M86.172) Patient has had a wound with exposed bone which then healed temporarily and reopened. He has been treating it himself for 4 months. He is high risk for amputation and sepsis. Discussed in detail with patient and . Patient will call if any concerns or changes. We are n the process of collecting recent labs and tests from PCP and other providers. I discussed anti-inflammatory treatment options and various means of immobilization with the patient. I educated the patient on offloading, supportive shoegear, and the use of orthotic devices and bracing. 10/14/2024 Type 2 diabetes mellitus with diabetic polyneuropathy [...] Dressings are selected based upon wound characteristics. 10/07/2024 Type 2 diabetes mellitus with diabetic polyneuropathy [...] Dressings are selected based upon wound characteristics. 09/30/2024 Non-pressure chronic ulcer of other part of left foot with necrosis of bone (ICD-10 - L97.524) Discussed possible need for admission for IV antibiotics and surgical intervention 11/11/2024 Type 2 diabetes mellitus with diabetic polyneuropathy (ICD-10 - E11.42) 10/28/2024 Type 2 diabetes mellitus with diabetic [...] Dressings are selected based upon wound characteristics. 10/14/2024 Non-pressure chronic ulcer of other part of [...] bone, tendon, ligament or joint capsule) 12/02/2024 Type 2 diabetes mellitus with diabetic polyneuropathy (ICD-10 - E11.42) 12/23/2024 Type 2 diabetes mellitus with diabetic polyneuropathy (ICD-10 - E11.42) 01/13/2025 Type 2 diabetes mellitus with diabetic polyneuropathy (ICD-10 - E11.42) 11/11/2024 Pain in left foot (ICD-10 - M79.672) Due to neuropathy, area is not painful at this time 10/14/2024 Pain in left foot (ICD-10 - M79.672) Due to neuropathy, area is not painful at this time 10/28/2024 Pain in left foot (ICD-10 - M79.672) Due to neuropathy, area is not painful at this time 09/30/2024 Pain in left foot (ICD-10 - M79.672) 10/07/2024 Pain in left foot (ICD-10 - M79.672) Due to neuropathy, area is not painful at this time Plan Of Treatment No Information Insurance Providers Payer Name Payer Address Payer Phone Subscriber Number Group Number Insured Name Patient Relationship to Insured Coverage Start Date Coverage End Date [employer]. [address] [place] [address] [id number] BON BALLESTEROS Self - patient is the insured Medical (General) History Surgical History Surgery Date(Month/Year) replacement neck surgery
--- OUTSIDE RECORDS SUMMARY | 2025-01-22 19:32 | XMS_ITS | Encounter Summary ---
Author Organization [facility] Address [address] [address] Care Team Providers Care Gore Seamer Name Role Phone Jared Vincent MD Primary Care Provider [phone] Jared Vincent MD Primary Care Provider [phone] Micha Marie DO Primary Care Provider [phone] Zhen Robins MD Primary Care Provider [phone] Umair Alvarez MD Primary Care Provider [phone] Orlando Chua MD Unavailable [phone] Nathalia AlcalaM Unavailable [phone] Encounter Details Date Type Department Care Team (Late st Contact Info) Description 07/10/2016 Orders Only [facility] ProviderJael MD [address] [place] [address] Social History Tobacco Use Types Packs/Day Years Used Date Smoking Tobacco: Former Cigarettes Q uit: 04/29/1988 Alcohol Use Standard Drinks/Week Comments No 0 (1 standard drink = 0.6 oz pur e alcohol) Sex and Gender Information Value Date Recorded Sex Assigned at Not on file 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 us Historical Provider [facility] Final Result documented in this encounter Visit Diagnoses Not on filedocumented in this encounter Additional Health Concerns Infection Onset Date Last Indicated Resolved Time COVID: Suspected 12/08/2022 12/08/2022 12/08/2022 11:13 AM CDT documented as of this encounter Care Teams Gore Seamer Relationship Specialty Start Date End Date Jared Vincent MD PCP - General 07/27/16 09/02/17 Jared Vincent MD PCP - General 11/18/12 07/26/16 Micha Marie DO PCP - General Internal Medicine 09/03/17 06/03/18 Zhen Robins MD [address] [place] [address] PCP - General Internal Medicine 06/04/18 07/31/18 Umair Alvarez MD [address] [place] [address] PCP - General Internal Medicine 08/01/18 Orlando Chua MD [address] [place] [address] Consulting Physician Cardiology 01/26/21 Nathalia Alcala, DPM [address] [facility] [address] [place] [address] Consulting Physician Podiatry 10/04/23 documented as of this encounter
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
--- OUTSIDE RECORDS SUMMARY | 2025-01-22 19:33 | XMS_ITS | Clinical Summary ---
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 Atrial fibrillation, unspecified type ([facility]) 10/26/2020 Body aches 10/26/2020 Chronic bronchitis, unspecif ied chronic bronchitis type ([facility]) 10/26/2020 Chronic diastolic (congestiv e) heart failure ([facility]) 10/26/2020 Early onset Alzheimer's jonna ntia without behavioral disturbance 10/26/2020 Dementia in other diseases c lassified elsewhere without behavioral disturbance 10/26/2020 Chronic obstructive pulmonar y disease, unspecified COPD type ([facility]) 10/26/2020 Fever, unspecified fever cause 10/26/2020 Furuncle of skin or subcutaneous tissue 10/27/19 21 Gastroesophageal reflux disease 10/26/2020 Mixed hyperlipidemia 10/26/2020 Thyroid nodule 10/26/2020 Syncope and collapse 10/26/2020 Senile purpura 10/26/2020 Type 2 diabetes mellitus wit h diabetic polyneuropathy ([facility]) 10/26/2020 Type 2 diabetes mellitus wit h other circulatory complication, unspecified whether terminal carman insulin use ([facility]) 10/26/2020 Hypertensive heart disease w ith congestive heart failure ([facility]) 08/13/2018 Immunizations Immunization Administration Dates [...] 10:27 AM CDT Height 188 cm (6' 2) 12/30/2020 10:27 AM CDT Body Mass Index [...] 06/30/2021 12/31/2020, 10/27/2020 COVID-19 Vaccine (3 - 2024-2 6 season) 2024 08/16/2020, 07/18/2020 Meningococcal B Vaccine Aged Out No l onger eligible based on patient's age to complete this topic Meningococcal Vaccine Aged Out No erich pete eligible based on patient's age to complete this topic RSV Immunizations Under 20 Months Aged Out No longer eligible b ased on patient's age to complete this topic Goals Goal Patient Goal Type Associated Problems Recent Progress Patient-Stated? Author Family - family caregiver with be involved in care transitions and discharge planning General No Emerald Meyer, BOOKKEEPER ASSISTANT Safety - demonstrates understanding of home safety measures General No Bety Heredia RN Medical Devices Implanted Type Area R Developer Device Identifier Shelf Expiration Date Model / Serial / Lot Stent Ureteral 4.7fr 26cm Taper Pusher Fluoro Marker Atraumatic Insertion Inlay [place] [employer] Phreecoat Sterile Latex Free Disposable [employer] Green - [id number] Implanted:Qty: 1 on 11/24/2020 by Luke Chong MD at [facility] Stent Right: Ureter [employer] [id number] 03/16/2025 [id number] / / [id number] Procedures Procedure Name Priority Date/Time Associated Diagnosis Comments HEMOGLOBIN, GLYCOSYLATED Routine 12/31/2020 5:38 AM CDT from Last 3 Months or Most Recently Relevant to Health Maintenance Results * (ABNORMAL) HEMOGLOBIN, GLYCATED (12/31/2020 5:38 AM CDT) HGB A1C 6.2(H) <5.7 % 12/31/2020 12:36 PM CDT [facility] Comment: ADA GUIDELINES 2010 5.7 TO 6.4% INCREASED RISK OF DIABETES > OR = 6.5% CONSISTENT WITH DIABETES ESTIMATED AVG GLUCOSE 131 mg/dL 12/31/2020 12:36 PM CDT [facility] 12/31/2020 5:38 AM CDT Rachel Baires MD LABORATORY Final Result [facility] [address] [place] [address], from Last 3 Months or Most Recently Relevant to Health Maintenance Insurance [facility] Advance Directives * Full Code (Latest Code [...] 2:21 AM 10/29/2020 2:23 PM Care Teams Stripper And Printer Relationship Specialty Start Date End Date Umair Alvarez MD [address] [place] [address] PCP - General INTERNAL MEDICINE 10/26/20 Orlando Chua MD [address] [address] CARDIOVASCULAR DISEASE 11/21/20
== END 2025-01-22 20:04 | disposition home or self-care (01) ==
PROVIDERS: Emergency Provider Physician Assistant; PCP Internal Medicine
DX: S82.831A Other fracture of upper and lower end of right fibula, initial encounter for closed fracture (principal); W18.42XA Slipping, tripping and stumbling without falling due to stepping into hole or opening, initial encounter
CPT/HCPCS: 29515; 73610; 99284